=== PATIENT | female | born 1995 | race African-American/Black ===

== ENCOUNTER 2019-01-12 22:17 | Emergency (ER) | payer SELFPAY ==
--- OUTSIDE RECORDS SUMMARY | 2019-01-12 22:21 | XMS REPORT ---
:1995 [facility] Address [address] [place] [id number] Care Team Providers Name Role Phone Unavailable Unavailable Unavailable Problems This patient has no known problems. Allergies, Adverse Reactions, Alerts This patient has no known allergies or adverse reactions. Medications This patient has no known medications. Encounters Start End Encounter Admission Attending Care Care Encounter Date/Time Date/Time Type Type Clinicians Facility Department ID 2017-06-03 2017-06-03 Outpatient [facility] [id number] 00:00:00 00:00:00 2017-04-26 2017-04-26 Outpatient [facility] [id number] 07:37:31 07:37:31 2017-04-24 2017-04-24 Outpatient [facility] [id number] 07:21:26 07:21:26 2017-04-23 2017-04-23 Outpatient [facility] [id number] 15:25:08 15:25:08 2017-04-22 2017-04-22 Outpatient [facility] [id number] 10:38:27 10:38:27 2017-04-21 2017-04-21 Emergency [facility] [id number] 04:19:42 04:19:42 2017-04-21 2017-04-21 Inpatient [facility] [id number] 00:52:05 00:52:05 2017-04-19 2017-04-19 Emergency [facility] [id number] 18:41:35 18:41:35
--- OUTSIDE RECORDS SUMMARY | 2019-01-12 22:21 | XMS REPORT | Clinical Summary ---
:1995 Author Organization [facility] Address [address] [place] [address] Care Team Providers Name Role Phone Asked, No Pcp Primary Care Provider Unavailable Allergies Active Allergy Reactions Severity Noted Date Comments Penicillins Shortness Of Breath High 02/21/2018 Medications Medication Sig Dispensed Refills Start Date End Date Status acetaminophen-codein Take 1 tablet by 12 tablet 0 02/21/2018 02/27/2018 e (TYLENOL WITH mouth every 6 CODEINE #3) 300-30 (six) hours as mg per tablet needed for moderate pain for up to 12 doses. acetaminophen-codein Take 1 tablet by 12 tablet 0 02/21/2018 02/28/2018 e (TYLENOL WITH mouth every 6 CODEINE #3) 300-30 (six) hours as mg per tablet needed for moderate pain for up to 12 doses. Active Problems Not on file Encounters Date Type Specialty Care Team Description 02/21/2018 Emergency Emergency Medicine Karina Corley, Sprain of medial MD collateral ligament of right knee, initial encounter (Primary Dx) after 01/11/2018 Social History Tobacco Use Types Packs/Day Years Used Date Never Smoker Smokeless Tobacco: Never Used Alcohol Use Drinks/Week oz/Week Comments Yes Occasionally Sex Assigned at Date Recorded Not on file Job Start Date Occupation Industry Not on file Not on file Not on file Travel History Travel Start Travel End No recent travel history available. Last Filed Vital Signs Vital Sign Reading Time Taken Blood Pressure 125/68 02/21/2018 10:13 PM CDT Pulse 101 02/21/2018 10:13 PM CDT Temperature 37.1 C (98.7 F) 02/21/2018 10:13 PM CDT Respiratory Rate 18 02/21/2018 10:13 PM CDT Oxygen Saturation 99% 02/21/2018 10:13 PM CDT Inhaled Oxygen Concentration - - Weight - - Height 149.9 cm (4' 11") 02/21/2018 6:05 PM CDT Body Mass Index - - Plan of Treatment Health Maintenance Due Date Last Done Comments INFLUENZA VACCINE 02/22/2019 Procedures Procedure Name Priority Date/Time Associated Comments Diagnosis SPLINT APPLICATION Routine 02/21/2018 9:40 Results for this PM CDT procedure are in the results section. XR KNEE 4+ VW RIGHT STAT 02/21/2018 6:51 Results for this PM CDT procedure are in the results section. HCG QUALITATIVE, Routine 02/21/2018 6:20 Results for this URINE SCREEN PM CDT procedure are in the results section. after 01/11/2018 Results SPLINT APPLICATION (02/21/2018 9:40 PM CDT) Narrative Performed At Karina Corley MD 02/22/20187:40 PM Splint Application Performed by: SONIA HO Authorized by: KARINA CORLEY Consent: Consent obtained:Verbal Consent given by:Patient Risks discussed:Pain Alternatives discussed:No treatment Pre-procedure details: Sensation:Normal Procedure details: Laterality:Right Location:Knee Knee:R knee Splint type:Knee immobilizer Supplies:Prefabricated splint Post-procedure details: Pain:Unchanged Sensation:Normal Patient tolerance of procedure:Tolerated well, no immediate complications XR Knee 4+ Vw Right (02/21/2018 6:51 PM CDT) Specimen Narrative Performed At EXAMINATION:XR KNEE 4VW RIGHT [facility] CLINICAL HISTORY:knee pain COMPARISON:None. FINDINGS: The bones appear intact. There is narrowing the medial and patellofemoral compartments. There are no fractures visualized. There is no fluid noted about the joint. IMPRESSION: There is narrowing the medial and patellofemoral joint compartments no acute finding is visualized. [id number] Procedure Note Hm Interface, Radiology Results Incoming - 02/21/2018 7:00 PM CDT EXAMINATION: XR KNEE 4 VW RIGHT CLINICAL HISTORY: knee pain COMPARISON: None. FINDINGS: The bones appear intact. There is narrowing the medial and patellofemoral compartments. There are no fractures visualized. There is no fluid noted about the joint. IMPRESSION: There is narrowing the medial and patellofemoral joint compartments no acute finding is visualized. [id number] Performing Organization Address City/State/Zipcode Phone Number GAURAV RODRIGUEZ [phone] [place] [address] hCG qualitative, urine screen (02/21/2018 6:20 PM CDT) hCG qualitative, NegativeComment: [facility] DEPARTMENT OF urine Sensitivity of HCG PATHOLOGY AND test: 25 mIU/mL GENOMIC MEDICINE Specimen Urine Performing Organization Address City[facility] Phone Number [facility] DEPARTMENT OF PATHOLOGY AND [address] [place] [address] GENOMIC MEDICINE after 01/11/2018 Insurance Payer Benefit Plan / Subscriber ID Effective Dates Phone Address Type Group CVCP CVCP BCBS xxxxxxxxxxxx 2015-Present Sheryl [facility], [address] [place] [address] (Home) [address] [place] [address] [place] [id number] Advance Directives Patient has advance care planning documents on file. For more information, please contact:Ramirez [email or web address] [place] [address]
[2019-01-12] MEDS ORDERED: PROMETHAZINE 25 MG TABLET ONE (23:17)
[2019-01-12] MEDS ORDERED: HYDROCODONE/APAP 5/325 MG TAB ONE (23:17)
[2019-01-12] MEDS ORDERED: GENTAMICIN 0.3% OPTH DROP 5ML ONE (23:18)
[2019-01-12] MEDS ORDERED: KETOROLAC 30 MG/ML INJ ONE (23:30)
[2019-01-12 23:32] LABS: Urine Blood 2+ (NEG); Urine Glucose NEGATIVE (NEG); Urine Protein 3+ (NEG); Urine Specific Gravity >1.030 (1.005-1.030)
[2019-01-12 23:57] LABS: Urine Bacteria <20 /HPF (<20); Urine Culture Reflex Order NOT NEEDED; Urine RBC <5 /HPF (NONE SEEN)
[2019-01-13 00:27] LABS: Absolute Lymphocytes (CBC) 1.3 K/uL (0.7-4.9); Basophils % 0.1 % (0-1.3); Eosinophils % 0.3 % (0-4.4); Hematocrit 34.2 % (36.0-45.0); Lymphocytes % 16.4 % (15.3-44.8); MPV 8.4 fL (7.6-11.3); Monocytes % 6.2 % (3.3-12.3); RBC Red Blood Cell Count 3.69 M/uL (3.86-4.86)
[2019-01-13] MEDS ORDERED: NA CHLORIDE 0.9% 1,000 ML ONE (00:33)
[2019-01-13 00:43] LABS: BUN Blood Urea Nitrogen 11 mg/dL (7-18); Bicarbonate 25 mmol/L (21-32); Glucose Level 116 mg/dL (74-106); Potassium 3.6 mmol/L (3.5-5.1); Sodium Level 139 mmol/L (136-145)
[2019-01-13] MEDS ORDERED: DIPHENHYDRAMINE 50 MG/ML VIAL ONE (01:09)
--- NOTE | 2019-01-13 01:23 | EDPHYS ---
Physician Documentation [facility] Name: Amira Ruiz Age: 23 yrs Sex: Female : 1995 Arrival Date: 01/12/2019 Time: 22:22 Bed 16 Private MD: ED Physician Corine Carlin HPI: 01/12 23:06 This 23 yrs old Black Female presents to ER via Ambulatory with complaints of Nasal snw Congestion, Headache, Difficulty Swallowing. 23:06 The patient or guardian reports cough, flu symptoms, low-grade fever, myalgias, no snw appetite. Onset: The symptoms/episode began/occurred suddenly, 3 day(s) ago, and became persistent. Severity of symptoms: At their worst the symptoms were moderate. Associated signs and symptoms: Pertinent positives: fever, rhinorrhea, sore throat. It is unknown whether or not the patient has had similar symptoms in the past. It is unknown whether or not the patient has recently seen a physician. taking dayquil/nyquil and using neti pot. [employer]: 01/13 01:58 LMP N/A - Irregular menses jd3 Historical: - Allergies: 01/12 22:33 PENICILLINS; jd3 - Home Meds: 22:33 Prednisone Oral [Active]; Ferrex 150 oral oral [Active]; Omeprazole Oral [Active]; jd3 - PMHx: 22:33 Lupus; Anemia; jd3 - PSHx: 22:33 kidney; elbow; heart; jd3 - Immunization history:: Adult Immunizations up to date. - Social history:: Smoking status: Patient/guardian denies using tobacco. - Ebola Screening: : Patient negative for fever greater than or equal to 101.5 degrees Fahrenheit, and additional compatible Ebola Virus Disease symptoms. ROS: 23:05 ENT: Negative for injury, pain, and discharge, Neck: Negative for injury, pain, and snw swelling, Cardiovascular: Negative for chest pain, palpitations, and edema, Respiratory: Negative for shortness of breath, cough, wheezing, and pleuritic chest pain, Abdomen/GI: Negative for abdominal pain, nausea, vomiting, diarrhea, and constipation, Back: Negative for injury and pain, : Negative for injury, bleeding, discharge, and swelling, MS/Extremity: Negative for injury and deformity, Skin: Negative for injury, rash, and discoloration. 23:05 Constitutional: Positive for body aches, fatigue, fever, malaise. 23:05 Eyes: Positive for discharge, matting, redness, of the outer aspect of conjuctiva of left eye and inner aspect of conjunctiva of left eye. 23:05 Neuro: Positive for headache, pressure around top of head. Exam: 23:03 Constitutional: This is a well developed, well nourished patient who is awake, alert, snw and in no acute distress. Head/Face: Normocephalic, atraumatic. 23:03 ENT: Nares patent. No nasal discharge, no septal abnormalities noted. Tympanic membranes are normal and external auditory canals are clear. Oropharynx with no redness, swelling, or masses, exudates, or evidence of obstruction, uvula midline. Mucous membranes moist. Neck: Trachea midline, no thyromegaly or masses palpated, and no cervical lymphadenopathy. Supple, full range of motion without nuchal rigidity, or vertebral point tenderness. No Meningismus. Chest/axilla: Normal chest wall appearance and motion. Nontender with no deformity. No lesions are appreciated. 23:03 Respiratory: Lungs have equal breath sounds bilaterally, clear to auscultation and percussion. No rales, rhonchi or wheezes noted. No increased work of breathing, no retractions or nasal flaring. Abdomen/GI: Soft, non-tender, with normal bowel sounds. No distension or tympany. No guarding or rebound. No evidence of tenderness throughout. Back: No spinal tenderness. No costovertebral tenderness. Full range of motion. Skin: Warm, dry with normal turgor. Normal color with no rashes, no lesions, and no evidence of cellulitis. MS/ Extremity: Pulses equal, no cyanosis. Neurovascular intact. Full, normal range of motion. 23:03 Eyes: Periorbital structures: appear normal, Pupils: no acute changes, Extraocular movements: no acute changes, Conjunctiva: exudate, in the left eye, injected, in the left eye, Corneas: are normal, Sclera: no appreciated abnormality. 23:03 Cardiovascular: Rate: tachycardic, Rhythm: regular. 23:03 Neuro: Orientation: appropriate for stated age, Mentation: is normal, Sensation: is normal, seizure activity, is not displayed by the patient. Vital Signs: 22:33 BP 135 / 89; Pulse 113; Resp 17 S; Temp 98.4(O); Pulse Ox 98% on R/A; Weight 65.77 kg jd3 (R); Height 4 ft. 11 in. (149.86 cm) (R); Pain 10/10; 23:33 BP 122 / 77; Pulse 110; Resp 16; Pulse Ox 99% on R/A; jb4 01/13 01:00 BP 111 / 70; Pulse 89; Resp 18; Pulse Ox 100% on R/A; jb4 01/12 22:33 Body Mass Index 29.29 (65.77 kg, 149.86 cm) jd3 MDM: 01/12 22:29 Patient medically screened. w 01/13 01:25 Data reviewed: vital signs, nurses notes, lab test result(s). Data interpreted: Pulse snw oximetry: on room air is 100 %. Interpretation: normal. Counseling: I had a detailed discussion with the patient and/or guardian regarding: the historical points, exam findings, and any diagnostic results supporting the discharge/admit diagnosis, lab results, the need for outpatient follow up, to return to the emergency department if symptoms worsen or persist or if there are any questions or concerns that arise at home. Response to treatment: the patient's symptoms have markedly improved after treatment. Special discussion: Based on the history and exam findings, there is no indication for further emergent testing or inpatient evaluation. I discussed with the patient/guardian the need to see the primary care provider for further evaluation of the symptoms. 01/12 22:52 Order name: Flu; Complete Time: 23:57 snw 01/12 22:52 Order name: Strep; Complete Time: 23:57 snw 01/12 22:52 Order name: Urine Culture snw 01/12 22:52 Order name: Urine Microscopic Only; Complete Time: 00:29 snw 01/12 23:21 Order name: Urine Dipstick--Ancillary (enter results); Complete Time: 23:57 ar5 01/12 23:21 Order name: Urine --Ancillary (enter results); Complete Time: 23:57 ar5 01/12 23:53 Order name: Throat Culture EDMS 01/13 00:03 Order name: CBC with Diff; Complete Time: 00:44 jb4 01/13 00:03 Order name: Basic Metabolic Panel; Complete Time: 00:44 4 01/12 22:52 Order name: Urine Test (obtain specimen); Complete Time: 23:29 snw 01/12 22:52 Order name: Urine Dipstick-Ancillary (obtain specimen); Complete Time: 23:29 snw 01/13 00:03 Order name: IV Saline Lock; Complete Time: 00:27 4 01/13 00:03 Order name: Labs collected and sent; Complete Time: 00:25 [facility] Administered Medications: 01/12 23:05 Not Given (other intervention used): Tobramycin Drops (0.3 %) 2 drops Ophthalmic once; snw OS 23:10 Not Given (patient request/): [place] 5 mg-325 mg 1 tabs PO once snw 23:10 Drug: Phenergan 25 mg Route: PO; [facility] 01/13 00:10 Follow up: Response: No adverse reaction [facility] 01/12 23:10 Drug: Gentamicin Drops 0.3 % 2 drops Route: Ophthalmic; Site: left eye; [facility] 01/13 00:10 Follow up: Response: No adverse reaction [facility] 01/12 23:24 Drug: TORadol 30 mg Route: IM; Site: left gluteus; [facility] 01/13 00:20 Follow up: Response: No adverse reaction j 00:25 Drug: NS 0.9% 1000 ml Route: IV; Rate: 1 bolus; Site: left antecubital; 4 01:58 Follow up: Response: No adverse reaction; IV Status: Completed infusion; IV Intake: jd3 1000ml 01:06 Drug: Benadryl 12.5 mg Route: IVP; Site: left antecubital; 4 01:58 Follow up: Response: No adverse reaction jd3 Disposition: 02:59 Co-signature as Attending Physician, Corine Carlin MD. ma2 Disposition: 01/13/19 01:21 Discharged to Home. Impression: Acute upper respiratory infection, unspecified, Conjunctivitis, Volume depletion. - Condition is Stable. - Discharge Instructions: Bacterial Conjunctivitis, Upper Respiratory Infection, Adult, Cool Mist Vaporizer, Rehydration, Adult. - Prescriptions for Nasonex 50 mcg/actuation Nasal spray,non- aerosol - spray 2 spray by INTRANASAL route once daily; 1 Cartridge. Polytrim 10,000 unit- 1 mg/mL Ophthalmic drops - instill 1 drop by OPHTHALMIC route every 4 hours; 1 bottle. - Work release form, Medication Reconciliation Form, Thank You Letter, Antibiotic Education, Prescription Opioid Use form. - Follow up: Private Physician; When: 2 - 3 days; Reason: Recheck today's complaints, Continuance of care, Re-evaluation by your physician. Follow up: Emergency Department; When: As needed; Reason: Worsening of condition. Signatures: Dispatcher [employer] EDMS Tali Gibbs, JALEN-C TELEVISION PICTURE TUBE REBUILDER-Csnw Arya Wolf, RN RN jb4 Conor De La Rosa RN RN jd3 Corine Carlin MD MD ma2 Corrections: (The following items were deleted from the chart) 02:00 01:21 01/13/2019 01:21 Discharged to Home. Impression: Acute upper respiratory jd3 infection, unspecified; Conjunctivitis; Volume depletion. Condition is Stable. Forms are Medication Reconciliation Form, Thank You Letter, Antibiotic Education, Prescription Opioid Use. Follow up: Private Physician; When: 2 - 3 days; Reason: Recheck today's complaints, Continuance of care, Re-evaluation by your physician. Follow up: Emergency Department; When: As needed; Reason: Worsening of condition. snw
--- NOTE | 2019-01-13 01:23 | ER ---
Nurse's Notes [facility] Name: Amira Ruiz Age: 23 yrs Sex: Female : 1995 Arrival Date: 01/12/2019 Time: 22:22 Bed 16 Private MD: Diagnosis: Acute upper respiratory infection, unspecified;Conjunctivitis;Volume depletion Presentation: 01/12 22:29 Presenting complaint: states: "She has had a headache for 3 days as well as jd3 pink eye. today she started having cold sweats and fever off and on as well as a worsening headache and sinus pressure.". Transition of care: patient was not received from another setting of care. Onset of symptoms was January 09, 2019. Risk Assessment: Do you want to hurt yourself or someone else? Patient reports no desire to harm self or others. Initial Sepsis Screen: Does the patient meet any 2 criteria? HR > 90 bpm. No. Patient's initial sepsis screen is negative. Does the patient have a suspected source of infection? No. Patient's initial sepsis screen is negative. Care prior to arrival: None. 22:29 Method Of Arrival: Ambulatory [facility] 22:29 Acuity: BRIT 3 jd3 Triage Assessment: 01/13 01:56 Headache History: The patient has had previous headaches and this one is different than jd3 previous episodes, and this one is more severe than previous episodes. 01:57 Pain: Pain began gradually, Also complains of no other associated symptoms. 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 - Social history:: Smoking status: Patient/guardian denies using tobacco. - Ebola Screening: : Patient negative for fever greater than or equal to 101.5 degrees Fahrenheit, and additional compatible Ebola Virus Disease symptoms. Screenin/22 01:56 Abuse screen: Denies threats or abuse. Nutritional screening: No deficits noted. jd3 Tuberculosis screening: No symptoms or risk factors identified. Fall Risk Ambulatory Aid- None/Bed Rest/Nurse Assist (0 pts). Gait- Normal/Bed Rest/Wheelchair (0 pts) Mental Status- Oriented to own ability (0 pts). Total Dominguez Fall Scale indicates No Risk (0-24 pts). Assessment: 01/12 22:30 General: Appears in no apparent distress. uncomfortable, Behavior is calm, cooperative, jb4 appropriate for age. Pain: Complains of pain in left eye, headache, face Pain does not radiate. Pain currently is 8 out of 10 on a pain scale. Quality of pain is described as stabbing, throbbing. Neuro: Level of Consciousness is awake, alert, obeys commands, Oriented to person, place, time, situation. Cardiovascular: Patient's skin is warm and dry. Respiratory: Airway is patent Respiratory effort is even, unlabored, Respiratory pattern is regular, symmetrical. GI: No deficits noted. : No deficits noted. EENT: Sclera/Cornea are reddened in outer aspect of conjuctiva of left eye, iris of left eye and inner aspect of conjunctiva of left eye. Derm: Skin is intact, Skin is pink, warm \\T\\ dry. Musculoskeletal: Circulation, motion, and sensation intact. 23:33 Reassessment: Patient appears in no apparent distress at this time. Patient and/or jb4 family updated on plan of care and expected duration. Pain level reassessed. Patient is alert, oriented x 3, equal unlabored respirations, skin warm/dry/pink. 01/13 01:00 Reassessment: Patient appears in no apparent distress at this time. Patient and/or jb4 family updated on plan of care and expected duration. Pain level reassessed. Patient is alert, oriented x 3, equal unlabored respirations, skin warm/dry/pink. Patient states feeling better. 01:55 Reassessment: Patient appears in no apparent distress at this time. Patient and/or jd3 family updated on plan of care and expected duration. Pain level reassessed. Patient is alert, oriented x 3, equal unlabored respirations, skin warm/dry/pink. Patient states feeling better. Vital Signs: 01/12 22:33 BP 135 / 89; Pulse 113; Resp 17 S; Temp 98.4(O); Pulse Ox 98% on R/A; Weight 65.77 kg jd3 (R); Height 4 ft. 11 in. (149.86 cm) (R); Pain 10/10; 23:33 BP 122 / 77; Pulse 110; Resp 16; Pulse Ox 99% on R/A; jb4 01/13 01:00 BP 111 / 70; Pulse 89; Resp 18; Pulse Ox 100% on R/A; jb4 01/12 22:33 Body Mass Index 29.29 (65.77 kg, 149.86 cm) j ED Course: 01/12 22:22 Patient arrived in ED. es 22:23 Arya Wolf, RN is Primary Nurse. jb4 22:28 Tali Gibbs FNP-C is PHCP. snw 22:28 Corine Carlin MD is Attending Physician. snw 22:31 Triage completed. jd3 22:33 Arm band placed on. jd3 01/13 01:56 Patient has correct armband on for positive identification. Bed in low position. Call j light in reach. Side rails up X 1. Adult w/ patient. 01:57 No provider procedures requiring assistance completed. IV discontinued, intact, jd3 bleeding controlled, No redness/swelling at site. Pressure dressing applied. Administered Medications: 01/12 23:05 Not Given (other intervention used): Tobramycin Drops (0.3 %) 2 drops Ophthalmic once; snw OS 23:10 Not Given (patient request/): [place] 5 mg-325 mg 1 tabs PO once snw 23:10 Drug: Phenergan 25 mg Route: PO; jb4 01/13 00:10 Follow up: Response: No adverse reaction jd3 01/12 23:10 Drug: Gentamicin Drops 0.3 % 2 drops Route: Ophthalmic; Site: left eye; jb4 01/13 00:10 Follow up: Response: No adverse reaction jd3 01/12 23:24 Drug: TORadol 30 mg Route: IM; Site: left gluteus; jb4 01/13 00:20 Follow up: Response: No adverse reaction jd3 00:25 Drug: NS 0.9% 1000 ml Route: IV; Rate: 1 bolus; Site: left antecubital; jb4 01:58 Follow up: Response: No adverse reaction; IV Status: Completed infusion; IV Intake: jd3 1000ml 01:06 Drug: Benadryl 12.5 mg Route: IVP; Site: left antecubital; jb4 01:58 Follow up: Response: No adverse reaction jd3 Intake: 01:58 IV: 1000ml; Total: 1000ml. jd3 Outcome: 01:21 Discharge ordered by . luisa 01:57 Discharged to home ambulatory, with family. jd3 01:57 Condition: stable 01:57 Discharge instructions given to patient, family, Instructed on discharge instructions, follow up and referral plans. medication usage, Demonstrated understanding of instructions, follow-up care, medications, Prescriptions given X 2. 02:00 Patient left the ED. jd3 Signatures: Tali Gibbs, SACK SEWER MACHINE-C SACK SEWER MACHINE-CsnMelissa Bain James, RN RN jb4 Conor De La Rosa RN RN jd3
== END 2019-01-13 02:00 | disposition home or self-care (01) ==
LOC: ER 22:17
DX: J06.9 Acute upper respiratory infection, unspecified (principal); H10.9 Unspecified conjunctivitis; E86.9 Volume depletion, unspecified; D64.9 Anemia, unspecified; Z88.0 Allergy status to penicillin
CPT/HCPCS: 36415; 80048; 81003; 81015; 81025; 85025; 87070; 87081; 87086; 87088; 87804; 96361; 96372; 96374; 99283; J7030

== ENCOUNTER 2020-02-11 09:43 | Inpatient (IN) | payer OTHER, SELFPAY ==
[2020-02-11 12:06] LABS: Urine Bacteria <20 /HPF (<20); Urine Culture Reflex Order REFLEXED; Urine RBC <5 /HPF (NONE SEEN)
[2020-02-11 12:09] LABS: Urine Blood 1+ (NEG); Urine Glucose NEGATIVE (NEG); Urine Protein 3+ (NEG); Urine pH 6.5 (5.0-7.0)
[2020-02-11 12:13] LABS: Absolute Lymphocytes (CBC) 1.5 K/uL (0.7-4.9); MPV 8.2 fL (7.6-11.3)
[2020-02-11 12:17] LABS: Protime INR 0.97
[2020-02-11] MEDS ORDERED: NA CHLORIDE 0.9% 1,000 ML ONE (12:21)
[2020-02-11 12:36] LABS: RBC Red Blood Cell Count < 1.05 M/uL (3.86-4.86)
--- NOTE | 2020-02-11 12:45 | RAD REPORT ---
EXAM DESCRIPTION: RAD - Chest Single View - 02/11/2020 12:35 pm CLINICAL HISTORY: DYSPNEA, sore throat, low-grade fever COMPARISON: None TECHNIQUE: AP portable chest image was obtained 02/11/2020 12:35 pm . FINDINGS: Lung volumes are clear. No peripheral mass or consolidation. Heart and vasculature are nor mal. No measurable pleural effusion and no pneumothorax. No acute bony abnormality seen. No acute aor tic findings suspected. IMPRESSION: No acute cardiopulmonary process.
[2020-02-11 12:49] LABS: ALT/SGPT 11 U/L (12-78); AST/SGOT 15 U/L (15-37); Albumin 2.7 g/dL (3.4-5.0); Alkaline Phosphatase 57 U/L (45-117); BUN Blood Urea Nitrogen 79 mg/dL (7-18); Bicarbonate 16 mmol/L (21-32); Bilirubin Direct 0.4 mg/dL (0-0.2); Bilirubin Total 1.3 mg/dL (0.2-1.0); Glucose Level 99 mg/dL (74-106); Magnesium 1.7 mg/dL (1.8-2.4); NT PRO-BNP 8398 pg/mL (<125); Potassium 4.3 mmol/L (3.5-5.1); Protein, Total 8.2 g/dL (6.4-8.2); Sodium Level 141 mmol/L (136-145); Troponin (Emerg Dept Use Only) < 0.02 ng/mL (0.0-0.045)
[2020-02-11 13:42] LABS: Anisocytosis 2+; Blood Morphology Comment NOTED (NOT SEEN); Platelet Estimate ADEQ
[2020-02-11 13:43] LABS: Polychromasia 1+
--- NOTE | 2020-02-11 13:43 | EDPHYS ---
Physician Documentation [facility] Name: Amira Ruiz Age: 24 yrs Sex: Female : 1995 Arrival Date: 02/11/2020 Time: 09:45 Bed 13 Private MD: ED Physician Daniel Devlin HPI: 02/10 12:40 This 24 yrs old Black Female presents to ER via Ambulatory with complaints of Shortness snw Of Breath, Eye Pain, Sore Throat. 12:40 The patient has shortness of breath at rest. Onset: The symptoms/episode began/occurred snw 1 month(s) ago, and became worse 1 week(s) ago, and became persistent. Duration: The symptoms are continuous, and are steadily getting worse. Associated signs and symptoms: Pertinent positives: palpitations. Severity of symptoms: At their worst the symptoms were moderate in the emergency department the symptoms are unchanged. It is unknown whether or not the patient has had similar symptoms in the past. The patient has been recently seen by a physician: with similar presenting complaints. pt has Lupus and thought she was having s/s of that. She does not see an endo and has been taking 10mg prednisone daily for 10+ years. 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 - Social history:: Smoking status: Patient denies any tobacco usage or history of. ROS: 12:44 Neck: Negative for injury, pain, and swelling. snw 12:44 Abdomen/GI: Negative for abdominal pain, nausea, vomiting, diarrhea, and constipation, Back: Negative for injury and pain, : Negative for injury, bleeding, discharge, and swelling, MS/Extremity: Negative for injury and deformity, Skin: Negative for injury, rash, and discoloration, Neuro: Negative for headache, weakness, numbness, tingling, and seizure. 12:44 Constitutional: Positive for body aches, fatigue, malaise. 12:44 Eyes: Positive for pain. 12:44 ENT: Positive for sore throat. 12:44 Cardiovascular: Positive for palpitations. 12:44 Respiratory: Positive for dyspnea on exertion, shortness of breath. Exam: 12:39 Head/Face: Normocephalic, atraumatic. snw 12:39 ENT: Nares patent. No nasal discharge, no septal abnormalities noted. Tympanic membranes are normal and external auditory canals are clear. Oropharynx with no redness, swelling, or masses, exudates, or evidence of obstruction, uvula midline. Mucous membranes moist. Neck: Trachea midline, no thyromegaly or masses palpated, and no cervical lymphadenopathy. Supple, full range of motion without nuchal rigidity, or vertebral point tenderness. No Meningismus. Chest/axilla: Normal chest wall appearance and motion. Nontender with no deformity. No lesions are appreciated. 12:39 Abdomen/GI: Soft, non-tender, with normal bowel sounds. No distension or tympany. No guarding or rebound. No evidence of tenderness throughout. Back: No spinal tenderness. No costovertebral tenderness. Full range of motion. Skin: Warm, dry with normal turgor. Normal color with no rashes, no lesions, and no evidence of cellulitis. MS/ Extremity: Pulses equal, no cyanosis. Neurovascular intact. Full, normal range of motion. Neuro: Awake and alert, GCS 15, oriented to person, place, time, and situation. Cranial nerves II-XII grossly intact. Motor strength 5/5 in all extremities. Sensory grossly intact. Cerebellar exam normal. Normal gait. Psych: Awake, alert, with orientation to person, place and time. Behavior, mood, and affect are within normal limits. 12:39 Constitutional: The patient appears alert, awake, pale. 12:39 Eyes: Conjunctiva: pale, bilaterally. 12:39 Cardiovascular: Rate: tachycardic, Rhythm: regular. 12:39 Respiratory: the patient does not display signs of respiratory distress, Respirations: shallow respirations, tachypnea, Breath sounds: are clear throughout. Vital Signs: 10:01 BP 117 / 68; Pulse 103; Resp 18; Temp 98.6; Pulse Ox 100% on R/A; Weight 60.33 kg; em Height 4 ft. 11 in. (149.86 cm); Pain 0/10; 12:20 BP 107 / 71; Pulse 111; Resp 20 S; Pulse Ox 100% on R/A; ca1 13:10 BP 103 / 67; Pulse 100; Resp 18 S; Pulse Ox 98% on R/A; ca1 13:59 BP 104 / 64; Pulse 91; Resp 18 S; Pulse Ox 100% on R/A; ca1 15:14 BP 106 / 60; Pulse 103; Resp 18 S; Pulse Ox 100% on R/A; ca1 16:00 BP 94 / 55; Pulse 99; Resp 18 S; Pulse Ox 100% on R/A; ca1 16:29 BP 110 / 55; Pulse 100; Resp 19 S; Pulse Ox 100% on R/A; ca1 10:01 Body Mass Index 26.86 (60.33 kg, 149.86 cm) em MDM: 11:28 Patient medically screened. snw 13:39 Data reviewed: vital signs, nurses notes. Data interpreted: Pulse oximetry: on room air snw is 98 %. Interpretation: normal. Counseling: I had a detailed discussion with the patient and/or guardian regarding: the historical points, exam findings, and any diagnostic results supporting the discharge/admit diagnosis, lab results, the need for further work-up and treatment in the hospital. Physician consultation: Fabian LOZANO was called at 13:41, was contacted at 13:41, regarding admission, to the telemetry unit. would like consultation with Dr. Bray. 02/10 11:27 Order name: Basic Metabolic Panel; Complete Time: 13:18 snw 02/10 11:27 Order name: CBC with Diff; Complete Time: 13:58 snw 02/10 11:27 Order name: LFT's; Complete Time: 13:18 snw 02/10 11:27 Order name: Magnesium; Complete Time: 13:18 snw 02/10 11:27 Order name: NT PRO-BNP; Complete Time: 13:18 snw 02/10 11:27 Order name: PT-INR; Complete Time: 12:32 snw 02/10 11:27 Order name: Troponin (emerg Dept Use Only); Complete Time: 13:18 snw 02/10 11:27 Order name: TSH; Complete Time: 13:18 snw 02/10 11:27 Order name: TS snw 02/10 11:27 Order name: Strep; Complete Time: 12:50 snw 02/10 11:27 Order name: Urine Culture snw 02/10 11:27 Order name: Urine Microscopic Only; Complete Time: 12:14 [facility] 02/10 11:28 Order name: Lactate; Complete Time: 12:32 [facility] 02/10 11:36 Order name: Urine Dipstick--Ancillary (enter results); Complete Time: 12:14 de 02/10 11:27 Order name: XRAY Chest (1 view); Complete Time: 12:50 [facility] 02/10 11:27 Order name: EKG; Complete Time: 11:29 [facility] 02/10 11:27 Order name: Cardiac monitoring; Complete Time: 12:08 [facility] 02/10 11:36 Order name: Urine --Ancillary (enter results); Complete Time: 12:14 de 02/10 12:47 Order name: Bb Add On [facility] 02/10 12:49 Order name: Throat Culture [facility] 02/10 13:16 Order name: Packed RBC Leukored [facility] 02/10 13:43 Order name: Manual Differential; Complete Time: 13:58 [facility] 02/10 15:29 Order name: CONS Physician Consult [facility] 02/10 16:29 Order name: NT PRO-BNP; Complete Time: 16:31 [facility] 02/10 16:38 Order name: T4 Free; Complete Time: 16:45 [facility] 02/10 11:27 Order name: EKG - Nurse/Tech; Complete Time: 12:08 [facility] 02/10 11:27 Order name: IV Saline Lock; Complete Time: 12:09 [facility] 02/10 11:27 Order name: Labs collected and sent; Complete Time: 12:09 [facility] 02/10 11:27 Order name: O2 Per Protocol; Complete Time: 12:09 [facility] 02/10 11:27 Order name: O2 Sat Monitoring; Complete Time: 12:09 [facility] 02/10 11:27 Order name: Urine Test (obtain specimen); Complete Time: 11:34 [facility] 02/10 11:27 Order name: Urine Dipstick-Ancillary (obtain specimen); Complete Time: 11:34 [facility] 02/10 14:42 Order name: Urine Test (obtain specimen); Complete Time: 15:03 snw Administered Medications: Discontinued: NS 0.9% 1000 ml IV at 125 ml/hr continuous 11:50 Drug: NS 0.9% 1000 ml Route: IV; Rate: 125 ml/hr; Site: right antecubital; ca1 14:00 Follow up: Response: No adverse reaction; IV Status: Infusion continued upon admission ca1 14:30 Drug: D5W with Sodium Bicarbonate 100 mEq/L 1000 ml Route: IV; Rate: 125 ml/hr; Site: ca1 right antecubital; 15:15 Follow up: Response: Adverse reaction, Physician notified; IV Status: Infusion ca1 continued upon admission Disposition: 18:26 Co-signature as Attending Physician, Daniel Devlin MD. rn Disposition: 02/11/20 13:43 Hospitalization ordered by Fabian Kowalski for Inpatient Admission. Preliminary diagnosis are Acute renal failure, Lupus erythematosus, Anemia in other chronic diseases classified elsewhere. - Bed requested for Telemetry/MedSurg (Inpatient). - Status is Inpatient Admission. ca1 - Condition is Stable. - Problem is an acute exacerbation. - Symptoms have worsened. Signatures: Dispatcher [employer] EDMS Fiordaliza Freedman Shelly, SR. MANAGER MARKETING-C SR. MANAGER MARKETING-Csnw Sammy Schwarz, RN RN em Daniel Devlin MD MD rn AcobEunice RN RN ca1 Corrections: (The following items were deleted from the chart) 13:16 12:48 PACKED RBC LEUKORED -1+BB.LAB.BRZ ordered. EDIL EDMS 13:16 12:48 ABO/RH typing ordered. EDIL EDMS 13:16 12:48 Antibody Screen ordered. EDIL EDMS 16:00 13:43 Hospitalization Ordered by Fabian LOZANO for Inpatient Admission. bd Preliminary diagnosis is Acute renal failure; Lupus erythematosus; Anemia in other chronic diseases classified elsewhere. Bed requested for Telemetry/MedSurg (Inpatient). Status is Inpatient Admission. Condition is Stable. Problem is an acute exacerbation. Symptoms have worsened. snw 17:36 16:00 02/11/2020 13:43 Hospitalization Ordered by Fabian LOZANO for Inpatient ca1 Admission. Preliminary diagnosis is Acute renal failure; Lupus erythematosus; Anemia in other chronic diseases classified elsewhere. Bed requested for Telemetry/MedSurg (Inpatient). Status is Inpatient Admission. Condition is Stable. Problem is an acute exacerbation. Symptoms have worsened. bd
--- NOTE | 2020-02-11 13:43 | ER ---
Nurse's Notes [facility] Name: Amira Ruiz Age: 24 yrs Sex: Female : 1995 Arrival Date: 02/11/2020 Time: 09:45 Bed 13 Private MD: Diagnosis: Acute renal failure;Lupus erythematosus;Anemia in other chronic diseases classified elsewhere Presentation: 02/10 10:01 Chief complaint: Patient states: shortness of breath, sore throat and arthur. eye pain em that started 1 month ago, reports low grade fever, +N -V-D, right sided flank pain. Coronavirus screen: Patient reports a cough. Patient reports shortness of breath or difficulty breathing. Patient reports a measured and/or subjective temperature greater than 100.4F. Patient denies travel on a cruise ship or to a country the [facility] currently lists as an affected area. Patient denies contact with known and/or suspected case of COVID-19. Ebola Screen: Patient negative for fever greater than or equal to 101.5 degrees Fahrenheit, and additional compatible Ebola Virus Disease symptoms Patient denies exposure to infectious person. Patient denies travel to an Ebola-affected area in the 21 days before illness onset. No symptoms or risks identified at this time. Initial Sepsis Screen: Does the patient meet any 2 criteria? HR > 90 bpm. No. Patient's initial sepsis screen is negative. Does the patient have a suspected source of infection? No. Patient's initial sepsis screen is negative. Risk Assessment: Do you want to hurt yourself or someone else? Patient reports no desire to harm self or others. Onset of symptoms was January 12, 2020. 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 - Social history:: Smoking status: Patient denies any tobacco usage or history of. Screenin:30 Abuse screen: Denies threats or abuse. Denies injuries from another. Nutritional ca1 screening: No deficits noted. Tuberculosis screening: No symptoms or risk factors identified. Fall Risk IV access (20 points). Assessment: 11:30 General: Appears in no apparent distress. comfortable, Behavior is calm, cooperative, ca1 appropriate for age. Pain: Denies pain. Neuro: Level of Consciousness is awake, alert, obeys commands, Oriented to person, place, time, situation. Cardiovascular: Heart tones S1 S2 present Capillary refill < 3 seconds Patient's skin is warm and dry. Rhythm is sinus rhythm. Respiratory: Reports shortness of breath on exertion Airway is patent Respiratory effort is even, unlabored, Respiratory pattern is regular, symmetrical, Breath sounds are clear bilaterally. GI: Abdomen is flat, non-distended, Bowel sounds present X 4 quads. Abd is soft and non tender X 4 quads. : No signs and/or symptoms were reported regarding the genitourinary system. EENT: No signs and/or symptoms were reported regarding the EENT system. Derm: Skin is intact, is healthy with good turgor, Skin is pink, warm \T\ dry. Musculoskeletal: Circulation, motion, and sensation intact. Capillary refill < 3 seconds. 12:18 Reassessment: PER LAB, HGB GROSSLY ABNORMAL. PROVIDER NOTIFIED. bp 12:20 Reassessment: Patient appears in no apparent distress at this time. No changes from ca1 previously documented assessment. Patient and/or family updated on plan of care and expected duration. Pain level reassessed. Patient is alert, oriented x 3, equal unlabored respirations, skin warm/dry/pink. 13:10 Reassessment: Patient appears in no apparent distress at this time. Patient and/or ca1 family updated on plan of care and expected duration. Pain level reassessed. Patient is alert, oriented x 3, equal unlabored respirations, skin warm/dry/pink. 13:59 Reassessment: Patient appears in no apparent distress at this time. Patient and/or ca1 family updated on plan of care and expected duration. Pain level reassessed. Patient is alert, oriented x 3, equal unlabored respirations, skin warm/dry/pink. 15:14 Reassessment: Patient appears in no apparent distress at this time. Patient and/or ca1 family updated on plan of care and expected duration. Pain level reassessed. Patient is alert, oriented x 3, equal unlabored respirations, skin warm/dry/pink. 16:23 Reassessment: Patient appears in no apparent distress at this time. Patient and/or ca1 family updated on plan of care and expected duration. Pain level reassessed. Patient is alert, oriented x 3, equal unlabored respirations, skin warm/dry/pink. Called for report. Nurse will call back. Vital Signs: 10:01 BP 117 / 68; Pulse 103; Resp 18; Temp 98.6; Pulse Ox 100% on R/A; Weight 60.33 kg; em Height 4 ft. 11 in. (149.86 cm); Pain 0/10; 12:20 BP 107 / 71; Pulse 111; Resp 20 S; Pulse Ox 100% on R/A; ca1 13:10 BP 103 / 67; Pulse 100; Resp 18 S; Pulse Ox 98% on R/A; ca1 13:59 BP 104 / 64; Pulse 91; Resp 18 S; Pulse Ox 100% on R/A; ca1 15:14 BP 106 / 60; Pulse 103; Resp 18 S; Pulse Ox 100% on R/A; ca1 16:00 BP 94 / 55; Pulse 99; Resp 18 S; Pulse Ox 100% on R/A; ca1 16:29 BP 110 / 55; Pulse 100; Resp 19 S; Pulse Ox 100% on R/A; ca1 10:01 Body Mass Index 26.86 (60.33 kg, 149.86 cm) em ED Course: 09:45 Patient arrived in ED. bp1 09:46 Tali Montejo FNP-C is PHCP. snw 09:46 Daniel Devlin MD is Attending Physician. snw 10:04 Triage completed. em 10:05 Arm band placed on. em 11:02 Eunice Penn, RN is Primary Nurse. ca1 11:30 Patient has correct armband on for positive identification. Placed in gown. Bed in low ca1 position. Call light in reach. Side rails up X2. mobile home laborer on. Pulse ox on. NIBP on. Warm blanket given. 11:47 Initial lab(s) drawn, by me, sent to lab. Strep swab sent to lab. Inserted saline lock: ca1 20 gauge in right antecubital area, using aseptic technique. Blood collected. 12:35 XRAY Chest (1 view) In Process Unspecified. EDMS 12:45 Repeat lab(s) drawn. sent to lab. ca1 13:42 Fabian Kowalski PA is Hospitalizing Provider. snw 15:11 Inserted saline lock: 18 gauge in left antecubital area, using aseptic technique. 4 16:24 No provider procedures requiring assistance completed. Patient admitted, IV remains in ca1 place. Administered Medications: Discontinued: NS 0.9% 1000 ml IV at 125 ml/hr continuous 11:50 Drug: NS 0.9% 1000 ml Route: IV; Rate: 125 ml/hr; Site: right antecubital; ca1 14:00 Follow up: Response: No adverse reaction; IV Status: Infusion continued upon admission ca1 14:30 Drug: D5W with Sodium Bicarbonate 100 mEq/L 1000 ml Route: IV; Rate: 125 ml/hr; Site: ca1 right antecubital; 15:15 Follow up: Response: Adverse reaction, Physician notified; IV Status: Infusion ca1 continued upon admission Outcome: 13:43 Decision to Hospitalize by Provider. snw 17:05 Admitted to Med/surg accompanied by tech, via wheelchair, room 228, with chart, Report ca1 called to APOLLO Vega 17:05 Condition: stable 17:05 Instructed on the need for admit. 17:36 Patient left the ED. ca1 Signatures: Dispatcher [employer] EDMS Tali Montejo, FARMER DIVERSIFIED CROPS-C FARMER DIVERSIFIED CROPS-Csnw Sammy Schwarz RN RN em Peltier, Brian, RN RN bp Acob, Cheryl, RN RN ca1 Paul Resendiz [facility] Deloris Watters [facility] Corrections: (The following items were deleted from the chart) 10:04 10:01 Pulse 103bpm; Resp 18bpm; Pulse Ox 100% RA; Temp 98.6F; 60.33 kg; Height 4 ft. 11 em in.; BMI: 26.8; Pain 0/10; em 16:32 16:23 BP 94 / 55; Pulse 99bpm; Resp 18bpm; Spontaneous; Pulse Ox 100% RA; ca1 ca1
--- OUTSIDE RECORDS SUMMARY | 2020-02-11 14:43 | XMS REPORT | Clinical Summary ---
:1995 Author Organization [facility] Address [facility] [place] [address] Care Team Providers Name Role Phone Unavailable Primary Care Provider Unavailable Allergies Active Allergy Reactions Severity Noted Date Comments Amoxicillin-Pot Clavulanate 03/01/2009 Penicillins 03/01/2009 Medications Medication Sig Dispensed Refills Start Date End Date Status hydroxychloroquine Take 200 mg by 0 Active (PLAQUENIL) 200 mg tablet mouth daily. ferrous sulfate 325 mg Take 325 mg by 0 Active (65 mg iron) tablet mouth daily (with breakfast). aspirin (ASPIRIN) 81 mg Chew and 0 Active chewable tablet swallow 81 mg by mouth daily. sertraline (ZOLOFT) 50 mg Take 50 mg by 0 Active tablet mouth daily. atovaquone (MEPRON) 750 Take 10 mL by 210 mL 0 05/01/2017 Active mg/5 mL oral suspension mouth daily. folic acid (FOLVITE) 1 mg Take 1 tablet 90 tablet 3 05/01/2017 Active tablet by mouth daily. sennosides-docusate Take 1 tablet 30 tablet 3 05/01/2017 Active sodium (SENNA PLUS) by mouth 8.6-50 mg tablet daily. hydroxychloroquine Take 1 tablet 30 tablet 3 05/01/2017 Active (PLAQUENIL) 200 mg tablet by mouth daily. omeprazole (PRILOSEC) 20 Take 2 60 capsule 3 05/01/2017 Active mg delayed release capsules by capsule mouth daily. mycophenolate (CELLCEPT) Take 3 tablets 90 tablet 3 05/01/2017 Active 500 mg tabletIndications: by mouth 2 Acquired hemolytic times daily. anemia, Systemic lupus erythematosus with glomerular disease, unspecified SLE type predniSONE (DELTASONE) 20 Take 3 tablets by mouth kendell y Take 60mg (3 tablets) daily for 4 weeks 90 tablet 2 05/01/2017 Active mg tablet Take 50mg (2.5 tablets) daily for 2 weeks Then take 40mg (2 tablets) daily until seen in clinic. ondansetron (ZOFRAN) 4 mg Take 1 tablet 20 tablet 0 05/01/2017 Active tablet by mouth every 8 hours as needed for up to 5 doses for Nausea. 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 Menorrhagia with regular cycle Uterine leiomyoma Acquired hemolytic anemia Current use of steroid medication High risk medication use Lupus nephritis Proteinuria Family History Medical History Relation Name Comments Heart failure Father Diabetes Maternal Grandfather Heart failure Maternal Grandfather Stomach cancer Maternal Grandmother Cerebral aneurysm Mother Heart failure Mother Hyperthyroidism Mother Relation Name Status Comments Father Maternal Grandfather Maternal Grandmother Mother Social History Tobacco Use Types Packs/Day Years Used Date Never Smoker Smokeless Tobacco: Never Used Alcohol Use Drinks/Week oz/Week Comments No Sex Assigned at Date Recorded Not on file Job Start Date Occupation Industry Not on file Not on file Not on file Travel History Travel Start Travel End No recent travel history available. Last Filed Vital Signs Not on file Plan of Treatment Health Maintenance Due Date Last Done Comments Cervical Cancer Scrn (3 Yrs) 2014 IMM Influenza Seasonal Apr to September (>/= 19 yrs) 04/24/2020 Results Not on fileafter 02/10/2019 Insurance Payer Benefit Plan / Subscriber ID Effective Dates Phone Addre ss Type Group [facility] SELF-PAY xxxxxxxxx 2017-Prese [phone] [id number] SELF-PAY [address] [place] [address] [address] (Home) [employer] [phone] (Work) Advance Directives Code Status Date Activated Date Inactivated Comments Full Code 04/21/2017 12:28 PM 05/01/2017 8:31 PM
--- OUTSIDE RECORDS SUMMARY | 2020-02-11 14:44 | XMS REPORT | Clinical Summary ---
:1995 Author Organization [facility] Address [address] [place] [address] Care Team Providers Name Role Phone Asked, No Pcp Primary Care Provider Unavailable Allergies Active Allergy Reactions Severity Noted Date Comments Penicillins Shortness Of Breath High 02/21/2018 Medications No known medications Active Problems Not on file Social History Tobacco Use Types Packs/Day Years [...] Health Maintenance Due Date Last Done Comments CERVICAL CANCER SCREENING 2014 INFLUENZA VACCINE 02/23/2020 Results Not on fileafter 02/10/2019 Insurance Payer Benefit Plan / Subscriber ID Effective Dates Phone Addre ss Type Group CVCP CVCP BCBS xxxxxxxxxxxx 2015-Present [address] [place] [address] ([place]) [address] [place] [address] [place] [id number] Advance Directives For more information, please contact: [phone] Type Date Recorded Patient Litigation Docket Manager Explanati on Advance Directives, 06/02/2016 11:51 PM Living Will and Medical Power of [employer] Supervisor Advance Directives, 06/03/2016 1:17 AM Living Will and Medical Power of [employer] Supervisor
--- OUTSIDE RECORDS SUMMARY | 2020-02-11 14:44 | XMS REPORT | Continuity of Care Document ---
:1995 Author Organization [facility] t Address [address] [place] [address] Care Team Providers Name Role Phone Asked, No Pcp Primary Care Physician Unavailable Aury SHIRT SORTER, G Attending Clinician Doctor Unassigned, Name Attending Clinician Unavailable Problems Condition Condition Condition Status Onset Resolution Last Treating Co mments Source Name Details Category Date Date Treatment Clinician Date Thyroid Thyroid Disease Active 2016-07 [facility] lesion lesion 0 Health 00:00: 00 Lymphadeno Lymphadeno Disease Active H maria l skaggs, 04-23 Health cervical cervical 00:00: 00 Anemia Anemia Disease Active [facility] 04-21 Health 00:00: 00 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 00:00: mason with mason with 00 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 00:00: 00 Menorrhagi Menorrhagi Disease Active H shannonis a with a with Health regular regular cycle cycle Uterine Uterine Disease Active Jose Enrique leiomyoma leiomyoma [facility]al [facility] 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 [facility]al [facility] anemia anemia Current Current Disease Active Jose Enrique use of use of Health steroid steroid medication medication High risk High risk Disease Active Jason ris medication medication He alth use use Lupus Lupus Disease Active [place] nephritis nephritis [facility]al [facility] 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 Allergies, Adverse Reactions, Alerts Allergy Allergy Status Severity Reaction(s) Onset Inactive Treating Comm ents Source Name Type Date Date Clinician Penicill Propensi Active Shortness Of [place] ins ty to Breath 02-21 Methodi adverse 00:00: st reaction 00 s to drug Amoxicil Propensi Active [place] mariela-Pot ty to 03-01 Health Clavulan adverse 00:00: ate reaction 00 s to drug Penicill Propensi Active [place] ins ty to 03-01 Health adverse 00:00: reaction 00 s to drug Family History Family Member Diagnosis Comments Start Date Stop Date Source Natural father Heart failure [facility] Maternal grandfather Diabetes [facility] Maternal grandfather Heart failure [facility] Maternal grandmother Stomach cancer [facility] Natural mother Cerebral aneurysm [facility] Natural mother Heart failure [facility] Natural mother Hyperthyroidism [facility] Social History Social Habit Start Date Stop Date Quantity Comments Source Sex Assigned At [facility] Alcohol Comment 2018-02-21 2018-02-21 Occasionally [place] 00:00:00 00:00:00 [facility] Alcohol intake 2017-04-24 2017-04-24 Current non-drinker [facility] 00:00:00 00:00:00 of alcohol (finding) Smoking Status Start Date Stop Date Source Never smoker [facility] Medications Ordered Filled Start Stop Current Ordering Indication Dosage Frequency Signature Comments Components Source Medication Medication Date Date Medication? Clinician (SIG) Name Name hydroxychlo 2016-07 Yes 200mg QD Take 200 H arris roquine 0-08 mg by [facility] (PLAQUENIL) 18:25: mouth 200 mg 57 daily. tablet ferrous 2016-07 Yes 325mg QD Take 325 Harri s sulfate 325 0-08 mg by [facility] mg (65 mg 18:25: mouth iron) 57 daily tablet (with breakfast) . aspirin 2016-07 Yes 81mg QD Chew and [facility] (ASPIRIN) 0-08 swallow 81 Heal th 81 mg 18:25: mg by chewable 57 mouth tablet daily. sertraline 2016-07 Yes 50mg QD Take 50 mg H arrlaw (ZOLOFT) 50 0-08 by mouth Heal th mg tablet 18:25: daily. 57 atovaquone 2016-07 Yes 1500mg QD Take 10 mL [facility] (MEPRON) 0-08 by mouth Health 750 mg/5 mL 00:00: daily. oral 00 suspension folic acid 2016-07 Yes 1mg QD Take 1 Harri s (FOLVITE) 1 0-08 tablet by [facility] lth mg tablet 00:00: mouth 00 daily. sennosides- 2016-07 Yes 1{tbl} QD Take 1 Stahl rris docusate 0-08 tablet by Health sodium 00:00: mouth (SENNA 00 daily. PLUS) 8.6-50 mg tablet hydroxychlo 2016-07 Yes 200mg QD Take 1 Jason ris roquine 0-08 tablet by [facility] (PLAQUENIL) 00:00: mouth 200 mg 00 daily. tablet omeprazole 2016-07 Yes 40mg QD Take 2 Harri s (PRILOSEC) 0-08 capsules Healt h 20 mg 00:00: by mouth delayed 00 daily. release capsule mycophenola 2016-07 Yes Systemic 1500mg Q.5D Take 3 [facility] te 0-08 lupus tablets by [facility] (CELLCEPT) 00:00: erythematos mouth 2 500 mg 00 us with times tablet glomerular daily. disease, unspecified SLE type predniSONE 2016-07 Yes 60mg QD Take 3 Harri s (DELTASONE) 0-08 tablets by He alth 20 mg 00:00: mouth tablet 00 daily Take 60mg (3 tablets) daily for 4 weeksTake 50mg (2.5 tablets) daily for 2 weeksThen take 40mg (2 tablets) daily until seen in clinic. ondansetron 2016-07 Yes 4mg Take 1 Glenny is (ZOFRAN) 4 0-08 tablet by Heal th mg tablet 00:00: mouth 00 every 8 hours as needed for up to 5 doses for Nausea. Procedures This patient has no known procedures. Plan of Care Planned Activity Planned Date Details Comments Source Future Scheduled 2020-04-[address] [facility] Test 00:00:00 Seasonal Apr to September (>/= 19 yrs) [code = IMM Influenza Seasonal Apr to September (>/= 19 yrs)] Future Scheduled 2020-02-23 INFLUENZA VACCINE Beto roman [facility] Test 00:00:00 [code = INFLUENZA VACCINE] Future Scheduled 2014 Screening for [facility] Test 00:00:00 malignant neoplasm of cervix (procedure) [code = 148485964] Future Scheduled 2014 Screening for Jose Enrique [facility] Test 00:00:00 malignant neoplasm of cervix (procedure) [code = 999233539] Encounters Start End Encounter Admission Attending Care Care Encounter Source Date/Time Date/Time Type Type Clinicians Facility Department ID 2019-10-05 2019-10-05 Emergency KEELY Jeffers [id number] 17:16:57 20:21:00 Kate Duque [id number] [place] [id number] [facility] [id number] 2019-10-05 2019-10-05 Orders Doctor CHATA [id number] 00:00:00 00:00:00 Only Unassigned, ELIZABETH [id number] [place] [id number] 2017-06-03 2017-06-03 Outpatient [facility] [id number] [place] 00:00:00 00:00:00 Health 2017-04-26 2017-04-26 Outpatient [facility] [id number] [place] 07:37:31 07:37:31 Health 2017-04-24 2017-04-24 Outpatient [facility] [id number] [place] 07:21:26 07:21:26 Health 2017-04-23 2017-04-23 Outpatient [facility] [id number] [place] 15:25:08 15:25:08 Health 2017-04-22 2017-04-22 Outpatient [facility] [id number] [place] 10:38:27 10:38:27 Health 2017-04-21 2017-04-21 Emergency [facility] [id number] [place] 04:19:42 04:19:42 Health 2017-04-21 2017-04-21 Inpatient [facility] [id number] [place] 00:52:05 00:52:05 [facility] 2017-04-19 2017-04-19 Emergency [facility] [id number] [place] 18:41:35 18:41:35 Health Results This patient has no known results.
[2020-02-11] MEDS ORDERED: D5W 1,000 ML with NA BICARB 8.4% 100 MEQ IV SCH ×2 (15:00)
[2020-02-11] MEDS: NA CHLORIDE 0.9% 1,000 ML IV SCH (16:00)
--- NOTE | 2020-02-11 16:00 | P.HP ---
Certification for Inpatient With expected LOS: >2 Midnights Patient will require the following post-hospital care: None Practitioner: I am a practitioner with admitting privileges, knowledge of patient current condition, hospital course, and medical plan of care. Services: Services provided to patient in accordance with Admission requirements found in Title 42 Section 412.3 of the Code of Federal Regulations <Fabian Kowalski - Last Filed: 02/11/20 15:47> Patient History Date of Service: 02/11/20 Primary Care Provider: [facility] Reason for admission: Acute renal failure/lupus/anemia History of Present Illness: 24-year-old female with past medical history of lupus, anemia that presents to the emergency room complaining of shortness of breath, sore throat, low-grade fever that started approximately a month ago and has progressively worsened. Patient states that she also has been having an inter mittent cough. Patient denies any contact with a known Covid positive person. Patient states that in 2007 she was diagnosed with lupus. At that time she was also told she had congestive heart failure and underwent a pericardial window. She was seeing a retail analytics manager in [facility] but moved to [place] several years ago and has not followed up with anyone. States that she has been on prednisone 10 mg daily for the last 10-12 years. She also had a kidney biopsy- date unknown. In the emergency room patient is found to be in acute renal failure and with severe anemia with a creatinine level of 9.55, BUN of 79, an H&H of 3.3/9. Her proBNP is 8398. She is not requiring O2 support at this time. She is afebrile with a temperature reading of 98.6 on arrival to ED. Vitals were also stable with a blood pressure of 117/68, a pulse of 103, respiratory rate of 18 and oxygen saturations of 100% on room air. Her test is negative. Urine is negative. On physical exam patient is calm. She is in no distress. Is not having cough, does not feel febrile and is doing well after some IV fluids and initial treatment in the ED. ED will initiate 2 units of PRBC blood transfusion. P atient will be admitted to hospital and further evaluated. Home medications list reviewed: No - Past Medical/Surgical History Diabetic: No -: Lupus -: Acute renal failure -: Congestive heart failure status post pericardial window in 2007 -: Anemia -: Right kidney biopsy -: Pericardial window Psychosocial/ Personal History: . Lives at home with . No children - Family History Mother -: Heart disease, Kidney disease - Social History Smoking Status: Never smoker Alcohol use: No CD- Drugs: No Caffeine use: No Place of Residence: Home <SamariajoannagaganFabian valenzuela - Last Filed: 02/11/20 15:47> Date of Service: 02/11/20 <LewisMichele Hua - Last Filed: 02/11/20 16:44> Review of Systems General: Fever, Malaise, As per HPI Eyes: Vision Change (Complaining of decreased visual acuity after watching TV or computer screen for a few hr.) ENT: Unremarkable Respiratory: Cough, Shortness of Breath, SOB with Excertion Cardiovascular: Unremarkable Gastrointestinal: Nausea, Vomiting Genitourinary: Unremarkable Musculoskeletal: Unremarkable Integumentary: Unremarkable Neurological: Weakness <SamariajoannaFabian driscoll - Last Filed: 02/11/20 15:47> Physical Examination - Vital Signs Temperature: 98.6 F Blood Pressure: 103/67 Pulse: 100 Respirations: 18 Pulse Ox (%): 98 (RA) - Physical Exam General: Alert, In no apparent distress, Oriented x3 HEENT: Atraumatic, Normocephalic, PERRLA Neck: Supple, No Thyromegaly, Other (Trachea midline) Respiratory: Clear to auscultation bilaterally, Normal air movement Cardiovascular: No edema, Normal pulses, Normal S1 S2 Capillary refill: <2 Seconds Gastrointestinal: Normal bowel sounds, Soft and benign, Non-distended Musculoskeletal: No clubbing, No swelling, No contractures Integumentary: No rashes, No breakdown, No significant lesion, No tenderness/swelling Neurological: Normal gait, Normal speech, Normal strength at 5/5 x4 extr, Normal tone Other Physical/Emotional Findings: Pleasant and cooperative - Studies Laboratory Data (last 24 hrs) 02/11/20 11:57: PT 11.5, INR 0.97 02/11/20 11:57: WBC 3.9 L, Hgb 3.3 L*, Hct 9.0 L*, Plt Count 125 L 02/11/20 11:57: Sodium 141, Potassium 4.3, BUN 79 H, Creatinine 9.55 H*, Glucose 99, Magnesium 1.7 L, Total Bilirubin 1.3 H, AST 15, ALT 11 L, Alkaline Phosphatase 57 Microbiology Data (last 24 hrs): 02/11/20 12:02 Throat Group A Streptococcus Rapid Screen - Final <Fabian Kowalski - Last Filed: 02/11/20 15:47> - Studies Laboratory Data (last 24 hrs) 02/11/20 11:57: PT 11.5, INR 0.97 02/11/20 11:57: WBC 3.9 L, Hgb 3.3 L*, Hct 9.0 L*, Plt Count 125 L 02/11/20 11:57: Sodium 141, Potassium 4.3, BUN 79 H, Creatinine 9.55 H*, Glucose 99, Magnesium 1.7 L, Total Bilirubin 1.3 H, AST 15, ALT 11 L, Alkaline Phosphatase 57 Microbiology Data (last 24 hrs): 02/11/20 12:02 Throat Group A Streptococcus Rapid Screen - Final <Michele Saucedo - Last Filed: 02/11/20 16:44> Assessment and Plan - Plan Impression: Acute kidney failure complicated by a history of lupus, chronic anemia and possible nephritis: History of lupus: Severe Anemia of chronic disease: Congestive heart failure status post pericardial window in 2007: Plan: Acute kidney failure complicated by a history of lupus, chronic anemia and possible nephritis: Patient noted to have a significantly elevated creatinine level of 9.5 on admission. This is likely secondary to a history of lupus, chronic anemia and nephritis. Patient has not seen a retail analytics manager and few years. States she has been taking prednisone 10 mg daily dose for greater than 10 years. [facility]. UA showing 3+ protein and 1+ blood consistent with nephritis. Patient already started on IV fluids. Will consult Nephrology Dr. Bray. Will monitor daily labs and await recommendations. History of lupus: The patient was diagnosed with lupus in 2007. She was seeing a retail analytics manager in [facility] but moved to [facility] and has not seen a retail analytics manager in many years. Patient will likely benefit following up with the retail analytics manager on discharge. Severe Anemia of chronic disease: Patient noted to have the H&H of 3.3/9.0 on admission. ER started patient on 2 units PRBCs. Will continue monitoring H&H. Patient denies GI bleeding and there is no indication that the patient is bleeding. Admits to a long history of chronic anemia secondary to her lupus. Congestive heart failure status post pericardial window in 2007: Patient states that she was told she had congestive heart failure in 2007 when she was diagnosed with lupus. States that at that time she was noted to have a pericardial effusion and underwent pericardial window which resolve her issue. On admission it is noted that her BNP is elevated at 8398. Will order echocardiogram for further evaluation. Will consider cardiology consultation based on findings of echocardiogram. Will place patient on telemetry and monitor. Discharge Plan: Home Plan to discharge in: 72 Hours - Advance Directives Does patient have a Living Will: No Does patient have a Durable POA for Healthcare: No - Code Status/Comfort Care Code Status Assessed: Yes Time Spent Managing Pts Care (In Minutes): 55 <Fabian Kowalski - Last Filed: 02/11/20 15:47>
[2020-02-11 18:05] VITALS: BMI 26.9
[2020-02-11] MEDS: HEPARIN 5000 UNIT/ML 1 ML VIAL SQ SCH (18:43)
[2020-02-11] MEDS ORDERED: MAGNESIUM SULFATE 1 gm IVPB 1 GM/100 ML BAG IV ONE (19:00)
[2020-02-11 20:53] LABS: Phosphorus 5.8 mg/dL (2.5-4.9); Uric Acid 11.4 mg/dL (2.6-6.0)
[2020-02-12] MEDS: NA CHLORIDE 0.9% 1,000 ML IV SCH (00:16)
[2020-02-12] MEDS: HEPARIN 5000 UNIT/ML 1 ML VIAL SQ SCH (00:24)
--- NOTE | 2020-02-12 00:35 | CON ---
Date of Consultation: 02/11/2020 Chief Complaint: Acute kidney injury. History Of Present Illness: Acute kidney injury, severe, associated with acute and chronic anemia. The patient presented to the hospital because of generalized weakness. The patient was found to have severe hyperazotemia, BUN 79, creatinine 9.55. Electrolytes as follows; sodium 141, potassium 4.3, chloride 116, CO2 of 16, glucose 99, and calcium 7.1. The patient has history of lupus. She has bee n seen by elevator adjuster at [place], [place]. She recently moved to [place]. Blood work done on December, showed BUN of 11 and creatinine of 0.85. The patient has severe acute kidney injury. The tammy good was found to have anemia, hemoglobin level is 3.3 and hematocrit is 9.0. The patient will have blood transfusion. Previously on January 13, 2019, hemoglobin was 11.6. The patient is admitted to [facility]. She will have blood transfusion today. She was found to have severe acute kidney injury . Plan is to monitor urine output. The patient has history of SLE and chronic anemia. The patient is 24-year-old female with past medical history of SLE, anemia, and she presented to the hospital because of shortness of breath, sore throat, low-grade fever. She became ill and short of breath over last several days. The patient was complaining of intermittent cough. She denied co ntact with COVID positive person. She was diagnosed with lupus back in 2007. She at that time had c ongestive heart failure and underwent pericardial window for pericardial effusion with tamponade. Samaria vergara was seen by elevator adjuster in [place], [place] and recently was on prednisone 10 mg daily and was treate d with prednisone over last 10 to 12 years. She had kidney biopsy done, but she does not recall resu lts of the kidney biopsy. In the emergency room, she was evaluated and was found to have creatinine of 9.55, BUN 79, H and H of 3.3 and 9. BNP was 8398. She did not require O2 support, temperature wa s 98.6, blood pressure was 117/68, heart rate 103 and respiratory rate 18, SpO2 of 100%. IV fluids w ere initiated in the emergency room for acute kidney injury and the patient is to have 2 units of pac ked red blood cell transfusion. Past Medical History: SLE, acute kidney injury, congestive heart failure, status post pericardial wi ndow in 2008, chronic anemia, right kidney biopsy. Family History: Mother; heart disease, kidney disease. Social History: Denies tobacco, alcohol, or illicit drugs. Review of Systems: General: Complains of fever and malaise. Eyes: Denies vision changes, was complaining of some decreased vision over last several months. Respiratory: Was complaining of nonproductive cough, shortness of breath with exacerbation. Cardiovascular: Denies chest pain or syncope. Gastrointestinal: Was complaining of nausea and vomiting. : Denies hematuria or dysuria. Musculoskeletal: Denies muscle aches or joint swelling. All other systems reviewed and all are negative. Physical Examination: Vital Signs: Blood pressure 103/67, heart rate 100, respiratory rate 18, and SpO2 of 98%. Eyes: Anicteric sclerae. EOMI. Ears, Nose, Mouth and Throat: Oral mucosa moist. No pallor. Neck: Supple, no bruits. Lungs: Diminished breath sounds at bases. Heart: S1 and S2. Abdomen: Soft, benign, obese, nontender. No rebound. No guarding. Extremities: No edema. No clubbing. No cyanosis. Neurological: Moving extremities. Cranial nerves intact. Psychiatric: Alert and oriented x3. Normal affect. Laboratory Data: WBC 3.9, hemoglobin 3.3, hematocrit 9.0, and platelet count 125,000. PT 11.5, INR 0.97, sodium 141, potassium 4.3, BUN 79, creatinine 9.55, glucose 99, magnesium 1.7, total bilirubin 1.3, AP 57, AST 15, ALT 11. Impression And Plan: 1.Severe acute kidney injury. The patient will have IV fluids to prevent renal hypoperfusion. Adam mmend to avoid nonsteroidal anti-inflammatory medication. The patient has history of lupus and she h ad kidney biopsy done at [place], [place]. Plan is to obtain medical records from her elevator adjuster. In 2019, blood work showed relatively stable kidney function without kidney insufficiency. 2.Severe anemia, acute on chronic. The patient will have blood transfusion. The patient needs a wo rkup for acute and chronic anemia. 3.Monitor urine output. The patient has severe acute kidney injury. Check CK level to rule out rha bdomyolysis. The patient is undergoing workup to rule out infection including COVID infection, the p atient will have antibiotics for pneumonia. 4.Plan is to check renal ultrasound to rule out obstructive uropathy and check vasculitis panel to r ule out rapidly progressive glomerulonephritis. The patient may need renal biopsy done during this a dmission if renal function does not improve. JAZIEL/[place] Voice ID: [id number] Report ID: [id number]
[2020-02-12 04:20] LABS: Albumin 2.4 g/dL (3.4-5.0); Bilirubin Total 1.3 mg/dL (0.2-1.0); Potassium 4.5 mmol/L (3.5-5.1); Protein, Total 7.1 g/dL (6.4-8.2)
[2020-02-12 05:15] LABS: Absolute Lymphocytes (CBC) 1.5 K/uL (0.7-4.9); Basophils % 0.8 % (0-1.3); MPV 8.5 fL (7.6-11.3)
[2020-02-12 05:16] LABS: RBC Red Blood Cell Count < 1.05 M/uL (3.86-4.86)
[2020-02-12 05:21] LABS: Hematocrit 8.1 % (36.0-45.0)
[2020-02-12] MEDS ORDERED: NA CHLORIDE 0.9% 250 ML ONE (05:23)
[2020-02-12 05:57] LABS: Arterial Blood Carboxyhemoglob 3.6 % (0-1.5); Blood Gas Oxyhemoglobin 94.8 % (94-97); Blood O2 Saturation 99.6 % (92-98.5)
[2020-02-12] MEDS: D5W 1,000 ML with NA BICARB 8.4% 100 MEQ IV SCH ×4 (06:00→15:38)
[2020-02-12] MEDS ORDERED: CALCIUM GLUC 10% INJ 9.3 MEQ in NA CHLORIDE 0.9% 100 ML IV ONE (06:00)
[2020-02-12] MEDS: ACETAMINOPHEN 500 MG TAB PO PRN (09:27)
--- NOTE | 2020-02-12 10:17 | EKG ---
Test Date: 2020-02-11 Test Time: 12:06:42 Mental Health Social Worker: PRAFUL MEASUREMENT RESULTS: Intervals: Rate: 94 HI: 146 QRSD: 70 QT: 374 QTc: 467 [place]: P: 40 HI: 146 QRS: 62 T: 49 INTERPRETIVE STATEMENTS: Normal sinus rhythm Normal ECG No previous ECG available for comparison Electronically Signed On 02-12-20 10:14:02 CDT by Venkata Ramirez
--- NOTE | 2020-02-12 10:35 | P.PN ---
Subjective Date of Service: 02/12/20 Primary Care Provider: [facility] Chief Complaint: Acute renal failure/lupus/anemia Subjective: No new changes, No C/O voiced <Hugo Asencio - Last Filed: 02/12/20 10:32> Date of Service: 02/12/20 <Michele Saucedo - Last Filed: 02/12/20 14:33> Review of Systems Unremarkable <Hugo Asencio - Last Filed: 02/12/20 10:32> Physical Examination - Vital Signs Temperature: 99.4 F Blood Pressure: 103/55 Pulse: 100 Respirations: 18 Pulse Ox (%): 99 - Physical Exam General: Alert, In no apparent distress HEENT: Atraumatic, PERRLA, EOMI Neck: Supple, JVD not distended Respiratory: Clear to auscultation bilaterally, Normal air movement Cardiovascular: Regular rate/rhythm, Normal S1 S2 Gastrointestinal: Normal bowel sounds, No tenderness Musculoskeletal: No tenderness Integumentary: No rashes Neurological: Normal speech, Normal tone, Normal affect Lymphatics: No axilla or inguinal lymphadenopathy Other Physical/Emotional Findings: Pleasant and cooperative - Studies Laboratory Data (last 24 hrs) 02/11/20 11:57: PT 11.5, INR 0.97 02/11/20 11:57: WBC 3.9 L, Hgb 3.3 L*, Hct 9.0 L*, Plt Count 125 L 02/11/20 11:57: Sodium 141, Potassium 4.3, BUN 79 H, Creatinine 9.55 H*, Glucose 99, Magnesium 1.7 L, Total Bilirubin 1.3 H, AST 15, ALT 11 L, Alkaline Phosphatase 57 Microbiology Data (last 24 hrs): 02/11/20 12:02 Throat Group A Streptococcus Rapid Screen - Final Medications List Reviewed: Yes <Hugo Asencio - Last Filed: 02/12/20 10:32> - Studies Microbiology Data (last 24 hrs): 02/11/20 12:02 Throat Group A Streptococcus Rapid Screen - Final <Michele Saucedo - Last Filed: 02/12/20 14:33> Assessment & Plan Discharge Plan: Home Plan to discharge in: Greater than 2 days - Code Status/Comfort Care Code Status Assessed: Yes (Patient is full code) Physician Review Additional Text: Impression: Acute kidney failure complicated by a history of lupus, chronic anemia and possible nephritis: History of lupus: Severe Anemia of chronic disease: Congestive heart failure status post pericardial window in 2008: Plan: Acute kidney failure complicated by a history of lupus, chronic anemia and possible nephritis: Patient noted to have a significantly elevated creatinine level of 9.5 on admission. This is likely secondary to a history of lupus, chronic anemia and nephritis. Patient has not seen a statement request clerk and few years. States she has been taking prednisone 10 mg daily dose for greater than 10 years. Prescription given by PCP at the [facility]. UA showing 3+ protein and 1+ blood consistent with nephritis. Patient already started on IV fluids. Patient's creatinine has decreased to 8.8. Will continue with IV fluids, nephrology will continue to follow patient. Patient may need to have renal biopsy. 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 Patient need to follow up with Nephrology and rheumatology at discharge. History of lupus: The patient was diagnosed with lupus in 2007. She was seeing a statement request clerk in [facility] but moved to [facility] and has not seen a statement request clerk in many years. Patient will likely benefit following up with the statement request clerk on discharge. Severe Anemia of chronic disease: Patient currently being transfused, upon unit 1 of 2. Will repeat H&H after 2nd unit. Will continue to transfuse to a hemoglobin of 7-8. Congestive heart failure status post pericardial window in 2008: Patient states that she was told she had congestive heart failure in 2007 when she was diagnosed with lupus. States that at that time she was noted to have a pericardial effusion and underwent pericardial window which resolve her issue. On admission it is noted that her BNP is elevated at 8398. Awaiting results from echocardiogram, Will consider cardiology consultation based on findings of echocardiogram. Will place patient on telemetry and monitor. Will give Lasix with blood transfusion. Critical Care: No Time Spent Managing Pts Care (In Minutes): 55 <Hugo Asencio - Last Filed: 02/12/20 10:32> Physician Review Additional Text: Patient was seen and examined Agree with the above assessment plan <Michele Saucedo - Last Filed: 02/12/20 14:33>
[2020-02-12] MEDS ORDERED: EPOETIN 4,000 UNIT/ML VIAL IV SCH (14:45)
--- NOTE | 2020-02-12 14:53 | P.PN ---
Subjective Date of Service: 02/12/20 Primary Care Provider: [facility] Chief Complaint: Acute renal failure/lupus/anemia Subjective Pt with Hx of SLE, pericardial effusion in 2007 S/P window, CKD had biopsy at age ~11 , was on cellcept and hydroxychloroquine pt had no blood w/u or Rhumatology and nephrology F/U for more than 6yrs presented with symptomatic anemia Cr ~0.9 , HB <4.0 Today no over nigth events plan for 2 PRBC Rhumatologist office contacted for old records pending serology and US results will satrt epogen and PO bicarb if US showed echogenic kidneys and old records compatible with CKD then pt inlikely to benefit from biopsy and will need to start/prepare for HD this admission , otherwise will proceed with Biopy once Hb stable Physical exam general: AAOX3, NAD , obese Neck; Supple, No elevated JVD hear: RRR, normal S1,2 no murmur or rub Chest: CTAB, no rlaes or wheezes Abdomen: Soft , Nt Extremities No edema or ulcer A/P LILIYA vs 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 pending US and serology renal dose meds if US showed echogenic kidneys and old records compatible with CKD then pt inlikely to benefit from biopsy and will need to start/prepare for HD this admission , otherwise will proceed with Biopsy once Hb stable Symptomatic anemia likely due to CKD and lupus transfuse to keep Hb >7.0 will start epogen SLE hold cellcept due to anemia cont plaquinel F/U markers will start on steroids if shows active disease HAGMA will start po bicarb total time spent 45 min Physical Examination - Vital Signs Temperature: 99.4 F Blood Pressure: 103/55 Pulse: 100 Respirations: 18 Pulse Ox (%): 99 - Physical Exam Other Physical/Emotional Findings: Pleasant and cooperative - Studies Microbiology Data (last 24 hrs): 02/11/20 12:02 Throat Group A Streptococcus Rapid Screen - Final Medications List Reviewed: Yes
[2020-02-12] MEDS ORDERED: METHYLPRED NA SUC 1,000 MG in NA CHLORIDE 0.9% 100 ML IV ONE (14:58)
[2020-02-12] MEDS: FERROUS SULFATE 325 MG TAB PO SCH ×2 (15:32→22:22)
[2020-02-12] MEDS: ONDANSETRON 4 MG/2 ML VIAL IV PRN (16:49)
--- NOTE | 2020-02-12 19:19 | RAD REPORT ---
EXAM DESCRIPTION: US - Renal Ultrasound-Complete - 02/12/2020 6:09 pm CLINICAL HISTORY: arf Flank pain COMPARISON: No comparisons FINDINGS: Both kidneys are echogenic. The right kidney measures 11.8 x 5.3 x 4.9 cm. No hydronephrosis, focal mass or perinephric fluid. The left kidney measures 10.5 x 6.1 x 5.2 cm. No hydronephrosis, focal mass or perinephric fluid. The urinary bladder is incompletely distended without gross abnormality seen. IMPRESSION: Bilateral echogenic kidneys are present compatible with underlying medical renal disease .
[2020-02-12] MEDS ORDERED: FUROSEMIDE 40 MG/4 ML VIAL IV ONE (19:31)
[2020-02-12] MEDS ORDERED: EPOETIN 4,000 UNIT/ML VIAL SQ SCH ×2 (21:00→23:36)
[2020-02-12] MEDS ORDERED: EPOETIN ALFA-EPBX 4,000 UNIT/ML VIAL ONE (22:11)
[2020-02-12] MEDS: SODIUM BICARB 325 MG TAB PO SCH (22:22)
[2020-02-13] MEDS: D5W 1,000 ML with NA BICARB 8.4% 100 MEQ IV SCH ×4 (00:44→16:36)
[2020-02-13 05:15] LABS: Absolute Lymphocytes (CBC) 0.6 K/uL (0.7-4.9); Albumin 2.4 g/dL (3.4-5.0); Basophils % 0.5 % (0-1.3); Lymphocytes % 36.4 % (15.3-44.8); MPV 8.5 fL (7.6-11.3); Potassium 4.7 mmol/L (3.5-5.1); RBC Red Blood Cell Count 1.25 M/uL (3.86-4.86)
[2020-02-13 05:21] LABS: Hematocrit 14.4 % (36.0-45.0)
[2020-02-13 07:50] LABS: Anisocytosis 1+; Blood Morphology Comment NOTED (NOT SEEN); Platelet Estimate DECR; Polychromasia 1+; Urine White Blood Cell Casts OK
--- NOTE | 2020-02-13 08:12 | ECHO ---
HEIGHT: 4 ft 11 in WEIGHT: 134 lb 3.2 oz DATE OF STUDY: 09/14/[address]: Fabian Kowalski 2-DIMENSIONAL: YES M.MODE: YES DOPPLER: YES COLOR FLOW: YES TDS: NO PORTABLE: NO DEFINITY: NO BUBBLE STUDY: NO DIAGNOSIS: CONGESTIVE HEART FAILURE CARDIAC HISTORY: CATHERIZATION: NO SURGERY: NO PROSTHETIC VALVE: NO PACEMAKER: NO MEASUREMENTS (cm) DIASTOLIC (NORMALS) SYSTOLIC (NORMALS) IVSd 1.0 (0.6-1.2) LA Diam 3.6 (1.9-4.0) LVEF 66% LVIDd 3.4 (3.5-5.7) LVIDs 2.2 (2.0-3.5) %FS 36% LVPWd 1.0 (0.6-1.2) Ao Diam 2.6 (2.0-3.7) 2 DIMENSIONAL ASSESSMENT: RIGHT ATRIUM: NORMAL LEFT ATRIUM: NORMAL RIGHT VENTRICLE: NORMAL LEFT VENTRICLE: NORMAL TRICUSPID VALVE: NORMAL MITRAL VALVE: NORMAL PULMONIC VALVE: NORMAL AORTIC VALVE: NORMAL PERICARDIAL EFFUSION: NONE AORTIC ROOT: NORMAL LEFT VENTRICULAR WALL MOTION: NORMAL. DOPPLER/COLOR FLOW: TRACE OF TRICUSPID REGURGITATION. COMMENTS: TRACE OF TRICUSPID REGURGITATION. NORMAL LEFT VENTRICULAR SIZE AND FUNCTION. NO WALL MOTION ABNORMALITY. TECHNOLOGIST: KATHRYN RECINOS
[2020-02-13] MEDS: FERROUS SULFATE 325 MG TAB PO SCH ×3 (08:18→21:09)
[2020-02-13] MEDS: SODIUM BICARB 325 MG TAB PO SCH ×2 (08:18→21:09)
[2020-02-13] MEDS: predniSONE 10 MG TAB PO SCH (08:18)
[2020-02-13] MEDS: HYDROXYCHLOROQUINE 200MG TAB PO SCH (08:18)
[2020-02-13] MEDS: VENLAFAXINE HCL 75 MG TABLET PO SCH (08:19)
--- NOTE | 2020-02-13 11:01 | P.PN ---
Subjective Date of Service: 02/13/20 Primary Care Provider: [facility] Chief Complaint: Acute renal failure/lupus/anemia Review of Systems Unremarkable Physical Examination - Vital Signs Temperature: 97.2 F Blood Pressure: 148/79 Pulse: 72 Respirations: 18 Pulse Ox (%): 100 - Physical Exam General: Alert, In no apparent distress HEENT: Atraumatic, PERRLA, EOMI Neck: Supple, JVD not distended Respiratory: Clear to auscultation bilaterally, Normal air movement Cardiovascular: Regular rate/rhythm, Normal S1 S2 Gastrointestinal: Normal bowel sounds, No tenderness Musculoskeletal: No tenderness Integumentary: No rashes Neurological: Normal speech, Normal tone, Normal affect Lymphatics: No axilla or inguinal lymphadenopathy Other Physical/Emotional Findings: Pleasant and cooperative - Studies Microbiology Data (last 24 hrs): 02/11/20 12:02 Throat Culture & Sensitivity - Final NORMAL UPPER RESPIRATORY EDMOND GROWN. 02/11/20 11:29 Clean Catch Urine [place] Count - Final 02/11/20 11:29 Clean Catch Urine - Final No growth. Medications List Reviewed: Yes Assessment & Plan Discharge Plan: Home Plan to discharge in: Greater than 2 days - Code Status/Comfort Care Code Status Assessed: Yes (full code) Physician Review Additional Text: Impression: Acute kidney failure complicated by a history of lupus, chronic anemia and possible nephritis: History of lupus: Severe Anemia of chronic disease: Congestive heart failure status post pericardial window in 2007: Plan: Acute kidney failure complicated by a history of lupus, chronic anemia and possible nephritis: Patient kidney function has not improved with hydration, nephrology is recommending dialysis, General Surgery consulted for placement of Tessio, most likely will be completed tomorrow morning. Will need to arrange for outpatient HD. History of lupus: The patient was diagnosed with lupus in 2007. She was seeing a ships or barges loader in [facility] but moved to [facility] and has not seen a ships or barges loader in many years. Patient will likely benefit following up with the ships or barges loader on discharge. Severe Anemia of chronic disease: Patient given two units yesterday, HGB up to 5. Will transfuse another unit today. Congestive heart failure status post pericardial window in 2007: Patient states that she was told she had congestive heart failure in 2007 when she was diagnosed with lupus. States that at that time she was noted to have a pericardial effusion and underwent pericardial window which resolve her issue. On admission it is noted that her BNP is elevated at 8398. Awaiting results from echocardiogram, Will consider cardiology consultation based on findings of echocardiogram. Will place patient on telemetry and monitor. Will give Lasix with blood transfusion. Time Spent Managing Pts Care (In Minutes): 55
[2020-02-13 13:24] LABS: Urine Protein/Creatinine Ratio 3.15 ratio (<0.15)
--- NOTE | 2020-02-13 17:58 | PN ---
Date of Progress Note: 02/13/2020 Subjective: The patient was admitted with renal failure manifesting as chronic disease. The patient has background history of lupus. Apparently, the patient had lupus nephritis, been treated on CellCept. We still do not have the records, but ultrasound showing significant scarring on kidney. Kidney function did not improve on current plain hydration and steroid. Serology is still pending. Physical Examination: Vital Signs: Blood pressure 142/83, pulse of 77. The patient had urine output of 1100. Chest: Clear to auscultation. Heart: S1, S2. Regular. Systolic murmur. Abdomen: Soft, nontender. Extremities: No edema. Neurologic: Alert. No focal. Laboratory Data: WBC 1.7, H and H 5.2/14.4, platelets 130. Sodium 143, potassium 4.7, bicarb 18, chloride 114, BUN 76, creatinine of 9, calcium 7.5. Albumin 2.4, corrected calcium is 8.7. Urinalysis; specific gravity of 1.020, PC ratio of 3. Serology is still pending. Renal ultrasound showing 11.8 x 10.5 with echogenicity. Current Medications: The patient on include; 1. Cefazolin. 2. Solu-Medrol. 3. Epogen. 4. Effexor. 5. Tylenol. 6. Lasix. 7. Sodium bicarb 13 b.i.d. Assessment And Plan: 1. Lupus nephritis. I do not see the activity of the nephritis, but there is chronicity of the presentation. The patient had acidosis, had elevation in BUN with mild uremic symptoms. I had long discussion with the patient that with the finding on her lab the patient mostly has chronic kidney disease currently and I do not see activity on the UA to treat it as lupus nephritis right now, but the patient need to be initiated on renal replacement therapy. We discussed the modality of the renal replacement therapy. The patient given the financial status of her and being uninsured, unable to proceed with hemodialysis currently. We will consult surgery to place PermCath and we will start the patient on hemodialysis as in-house. I am going to go ahead and send for full serology to evaluate if there is any other systemic manifestation of her lupus giving the finding of leukopenia and thrombocytopenia and pancytopenia. 2. Lupus, manifested with exacerbation, doubted to be nephritis with renal exacerbation. I going to go ahead and send for the serology. The patient is already started on Solu-Medrol. I am going to send for LDH and haptoglobin to evaluate for any hemolysis. I agree with the Solu-Medrol for the time being. 3. Acidosis, non-anion gap metabolic acidosis, secondary to renal failure, questionable renal tubular acidosis, secondary to lupus. We will start the patient on oral sodium bicarb. 4. Hypocalcemia, mostly on the presence of secondary hyperparathyroidism. We will send for PTH, we will send for vitamin D, and we will follow up. 5. Hypertension, controlled, optimal. We will continue to monitor. 6. Anemia, not symptomatic. We will transfuse gradually and we will follow up. Differential is chronic kidney disease/hemolytic anemia on the presence of lupus. 7. Thrombocytopenia, secondary to lupus. [employer] Voice ID: [id number] Report ID: [id number] SOURAV
[2020-02-13] MEDS ORDERED: LORAZEPAM 1 MG TABLET PO SCH (23:59)
[2020-02-14] MEDS: D5W 1,000 ML with NA BICARB 8.4% 100 MEQ IV SCH ×6 (00:27→10:48)
[2020-02-14 04:47] LABS: Absolute Lymphocytes (CBC) 0.9 K/uL (0.7-4.9); Basophils % 0.3 % (0-1.3); Lymphocytes % 17.3 % (15.3-44.8); MPV 8.3 fL (7.6-11.3); RBC Red Blood Cell Count 0.91 M/uL (3.86-4.86)
[2020-02-14 04:51] LABS: Hematocrit 11.5 % (36.0-45.0)
[2020-02-14 05:06] LABS: Albumin 2.3 g/dL (3.4-5.0); Bilirubin Total 0.9 mg/dL (0.2-1.0); Ferritin 711.4 ng/mL (8-388); Phosphorus 5.2 mg/dL (2.5-4.9); Potassium 3.9 mmol/L (3.5-5.1); Protein, Total 6.8 g/dL (6.4-8.2)
[2020-02-14] MEDS ORDERED: CEFAZOLIN/NS 1gm 1 GM/50 ML BAG IVPB SCH (06:00)
--- NOTE | 2020-02-14 08:11 | P.PN ---
Subjective Date of Service: 02/14/20 Primary Care Provider: [facility] Chief Complaint: Acute renal failure/lupus/anemia Subjective: No new changes <JenniferisrealUhgo - Last Filed: 02/14/20 08:09> Date of Service: 02/14/20 <LewisMichele Kenneyaskar - Last Filed: 02/14/20 13:50> Review of Systems Unremarkable <Hugo Asencio - Last Filed: 02/14/20 08:09> Physical Examination - Vital Signs Temperature: 97.7 F Blood Pressure: 134/82 Pulse: 96 Respirations: 18 Pulse Ox (%): 99 - Physical Exam General: Alert, In no apparent distress HEENT: Atraumatic, PERRLA, EOMI Neck: Supple, JVD not distended Respiratory: Clear to auscultation bilaterally, Normal air movement Cardiovascular: Regular rate/rhythm, Normal S1 S2 Gastrointestinal: Normal bowel sounds, No tenderness Musculoskeletal: No tenderness Integumentary: No rashes Neurological: Normal speech, Normal tone, Normal affect Lymphatics: No axilla or inguinal lymphadenopathy Other Physical/Emotional Findings: Pleasant and cooperative - Studies Microbiology Data (last 24 hrs): 02/11/20 12:02 Throat Culture & Sensitivity - Final NORMAL UPPER RESPIRATORY EDMOND GROWN. 02/11/20 11:29 Clean Catch Urine [place] Count - Final 02/11/20 11:29 Clean Catch Urine - Final No growth. Medications List Reviewed: Yes <JenniferisrealHugo - Last Filed: 02/14/20 08:09> Assessment & Plan Discharge Plan: Home Plan to discharge in: Greater than 2 days - Code Status/Comfort Care Code Status Assessed: Yes (Patient is full code) Physician Review Additional Text: Impression: Acute kidney failure complicated by a history of lupus, chronic anemia and possi ble nephritis: History of lupus: Severe Anemia of chronic disease: Congestive heart failure status post pericardial window in 2007: Plan: Acute kidney failure complicated by a history of lupus, chronic anemia and possible nephritis: Patient kidney function has not improved with hydration, nephrology is recommending dialysis, General Surgery consulted for placement of Tessio, today's patient's hemoglobin is 4.4, patient with antibodies which is delaying transfusion. Will discuss with General Surgery, Tessio insertion may need to be delayed. History of lupus: The patient was diagnosed with lupus in 2007. She was seeing a size maker in [facility] but moved to [facility] and has not seen a size maker in many years. Patient will likely benefit following up with the size maker on discharge. Severe Anemia of chronic disease: Patient given two units yesterday, HGB up to 5. Unable to transfuse yesterday as patient as many antibodies, will attempt to transfuse today. Congestive heart failure status post pericardial window in 2007: Patient states that she was told she had congestive heart failure in 2007 when she was diagnosed with lupus. States that at that time she was noted to have a pericardial effusion and underwent pericardial window which resolve her issue. On admission it is noted that her BNP is elevated at 8398. Awaiting results from echocardiogram, Will consider cardiology consultation based on findings of echocardiogram. Will place patient on telemetry and monitor. Will give Lasix with blood transfusion. Time Spent Managing Pts Care (In Minutes): 55 <Hugo Asencio - Last Filed: 02/14/20 08:09> Physician Review Additional Text: Patient was seen and examined and findings were discussed agree with the assessment and plan as documented by CECI <Michele Saucedo - Last Filed: 02/14/20 13:50>
[2020-02-14] MEDS: FERROUS SULFATE 325 MG TAB PO SCH ×4 (09:00→21:00)
[2020-02-14] MEDS ORDERED: propofoL 200 MG/20 ML VIAL IV ONE (09:07)
[2020-02-14] MEDS ORDERED: LIDOCAINE 2% MPF 5 ML VIAL ONE (09:07)
[2020-02-14] MEDS ORDERED: FENTANYL CITR 100 MCG/2 ML ONE (09:07)
[2020-02-14] MEDS ORDERED: MIDAZOLAM HCL 2 MG/2 ML INJ ONE (09:07)
[2020-02-14] MEDS: LIDOCAINE 1% MPF 30 ML VIAL ONE ×2 (09:15→10:49)
[2020-02-14] MEDS: HEPARIN 5000 UNIT/ML 1 ML VIAL ONE ×4 (09:16→11:10)
[2020-02-14] MEDS ORDERED: NA CHLORIDE 0.9% 250 ML ONE (09:25)
[2020-02-14] MEDS ORDERED: NA CHLORIDE 0.9% 100 ML IV ONE (09:46)
[2020-02-14] MEDS: CALCITROL 0.25 MCG CAP PO SCH (10:00)
[2020-02-14] MEDS ORDERED: NA CHLORIDE 0.9% 500 ML ONE (10:24)
[2020-02-14] MEDS ORDERED: CEFAZOLIN/SWI 1gm 1 GM/10 ML SYR ONE (10:24)
[2020-02-14] MEDS ORDERED: LIDOCAINE 1% MPF 30 ML VIAL ONE (10:29)
--- NOTE | 2020-02-14 10:49 | PREOPCON ---
Date of Consultation: 02/13/2020 Reason: The patient needs dialysis. History Of Present Illness: The patient is a 24-year-old female, who came in with significant anemia with hemoglobin around 3, complaining of shortness of breath, sore throat, low-grade fever, which st arted about a month ago and has progressed. She has lupus. She has been on steroid therapy and on h er workup she was found to have significant uremia and requiring dialysis soon. So, I was consulted for catheter placement. She is awake, alert. No complaints. No fever or chills currently. Review of Systems: Otherwise unremarkable. Past Medical History: Significant for lupus, congestive heart failure, status post pericardial windo w in 2007, acute renal failure and anemia. Past Surgical History: Right kidney biopsy, pericardial window. Allergies: PENICILLIN. Social History: The patient does not smoke or drink. Family History: Noncontributory. Physical Examination: Vital Signs: Stable, afebrile. General: Awake, alert and oriented x3. Head and Neck: No masses. Chest: Clear. Heart: S1 and S2. Abdomen: Soft. Extremities: Neurovascularly intact. Neuro: Nonfocal. Laboratory Data: Reviewed. Her white count is 5.3 today. H and H is 4.4 and 11.5. She is currentl y receiving blood. Her retic count is 10.18. Platelets are 118. INR is within normal limits. BUN is 77, creatinine is 8.61. Assessment: Acute renal failure. The patient with complicated medical history including lupus and s ignificant anemia. Recommendations: We will place a Tesio catheter. The patient understands the risks, benefits, and a lternatives and agrees to procedure. /MODL Voice ID: [id number] Report ID: [id number]
--- NOTE | 2020-02-14 11:12 | P.OP ---
Preoperative diagnosis: ARF Postoperative diagnosis: ARF Primary procedure: RIJ Tesio Secondary procedure: Fluoroscopy Anesthesia: General Estimated blood loss: min Specimen: none Findings: normal anatomy Complications: None Transferred to: Recovery Room Condition: Good
[2020-02-14] MEDS ORDERED: ONDANSETRON 4 MG/2 ML VIAL ONE (11:18)
--- NOTE | 2020-02-14 11:31 | RAD REPORT ---
EXAM DESCRIPTION: RAD - Fluoroscopy <1 Hour - 02/14/2020 11:24 am CLINICAL HISTORY: Venous catheter insertion. TESSIO CATH PLACEMENT COMPARISON: No comparisons FINDINGS: Fluoroscopic imaging is submitted from placement of a venous catheter. Details of the pro cedure not available. Fluoroscopy time: 0.1 minutes
--- NOTE | 2020-02-14 11:46 | PN ---
Date of Progress Note: 02/14/2020 Subjective: The patient was admitted with uremic symptoms, elevated BUN and creatinine. The patient was started on prednisone. The patient was severely anemic, received transfusion. After the predni sone started, the pancytopenia started improving. Physical Examination: Vital Signs: When I saw the patient, blood pressure 134/82, pulse of 96, afebrile. The patient had good urine output of 1100. Chest: Clear to auscultation. Heart: S1, S2. Regular. No pericardial rub. Abdomen: Soft, nontender. No organomegaly. Extremities: No edema. Neurologic: Alert. No tremor. Laboratory Data: WBC 5.3, H and H 4.4/11.5, platelets 118. Sodium 141, potassium 3.9, bicarb 22, BU N 77, creatinine 8.6, GFR of 7, calcium 7.1, phos 5.2. Iron saturation 45, ferritin 711, PTH 640. S kermit protein electrophoresis is still pending. P/C ratio is 3.5. Serology still pending. COVID was negative. LDH 276. Assessment And Plan: 1.Chronic kidney disease. Its look to me with the finding on the PTH and ultrasound that in support of chronic kidney disease, advanced, progression to end-stage renal disease. The patient will need to initiate dialysis. The patient planned for PermCath today, then after that she is going to be sta rted dialysis. We informed the social science teacher that the patient needs placement as outpatient for dial ysis. We will dialyze the patient today and tomorrow. Then, hopefully we can switch her to TTS. 2.We will follow up the serology marker to evaluate if the patient down in the road will benefit fro m kidney biopsy or not if there is any activity. 3.Lupus/lupus nephritis. I do not see any activity on the urine as bland urine, but the patient has proteinuria with nephrotic range of proteinuria. The patient will benefit from staging of the kidne y and the patient is going to need for further workup. We sent all the serology to evaluate the acti vity of the lupus. If it is involving other organ, for the time being I am going to go ahead and sta rt the patient on Plaquenil 200 daily and continue the prednisone. 4.We will follow up haptoglobin. LDH has been elevated, which is in favor of hemolysis, which can e xplain other activity of her lupus. 5.Pancytopenia as above. The patient has a possibility of hemolysis secondary to lupus activity. T he patient already started on prednisone. The patient is status post transfusion. We will start the patient on Plaquenil and we will follow up serology. 6.Anemia, multifactorial, chronic kidney disease and hemolysis. Started on prednisone and Retacrit. 7.Acidosis, recovered. Going to be corrected completely with dialysis. I am going to go ahead and discontinue bicarb drip and continue oral bicarb which will be discontinued when we start the patient on dialysis. 8.Secondary hyperparathyroidism. We will start the patient on calcitriol. We will follow up. I do not see the need for any binder for the time being. 9.Hypocalcemia secondary to secondary hyperparathyroidism. Corrected calcium is 8. I do not see th e need for calcium supplements. SEBAS Voice ID: [id number] Report ID: [id number]
[2020-02-14] MEDS ORDERED: FUROSEMIDE 20 MG/ 2ML VIAL IV ONE ×2 (11:49→22:00)
--- NOTE | 2020-02-14 11:50 | OP ---
Date of Procedure: 02/14/2020 Surgeon: Ritesh hWittington MD Preoperative Diagnosis: Acute renal failure. Postoperative Diagnosis: Acute renal failure. Procedure: Placement of right IJ Tesio catheter, interpretation of intraoperative fluoroscopy. Estimated Blood Loss: Minimal. Specimen: None. Findings: Normal anatomy. Anesthesia: General. Complications: None. Disposition: The patient tolerated procedure in stable condition, taken to Recovery in good general condition. Description Of Procedure: The patient was brought to the OR and placed in supine position. General anesthesia was begun. Patient was prepped and draped in usual sterile fashion. Lidocaine 1% was inf iltrated locally. Then, an 18-gauge needle was used to access the right IJ vein. Guidewire was pass ed. Position was confirmed with fluoroscopy. Counterincision was made and tunneling device was used to tunnel the catheter between the 2 wounds. Then Seldinger technique was used. Vein was dilated. Tip of the catheter was placed in the SVC under fluoroscopy. Then catheter was flushed with heparin and packed with heparin with good blood flow. 3-0 chromic was used to approximate the subcutaneous tissue and 3-0 nylon used to secure the tube to this skin. Then sterile dressing was applied. Gui nt was awakened and taken to Recovery in good general condition and a chest x-ray has been ordered. /MODL Voice ID: [id number] Report ID: [id number]
--- NOTE | 2020-02-14 12:13 | RAD REPORT ---
EXAM DESCRIPTION: RAD - Chest Single View - 02/14/2020 12:02 pm CLINICAL HISTORY: S/P Tesio Chest pain. COMPARISON: Chest Single View dated 02/11/2020 FINDINGS: Portable technique limits examination quality. Right-sided venous catheter has tip in the SVC. No postprocedure pneumothorax. Mild interstitial pulm onary edema with small pleural effusions. The heart is moderately enlarged. IMPRESSION: No postprocedure pneumothorax.
[2020-02-14] MEDS: predniSONE 10 MG TAB PO SCH (14:38)
[2020-02-14] MEDS: VENLAFAXINE HCL 75 MG TABLET PO SCH (14:38)
[2020-02-14] MEDS: NS 0.9% VIAL 10 ML ONE ×2 (14:39→14:40)
[2020-02-14] MEDS: HYDROXYCHLOROQUINE 200MG TAB PO SCH (14:42)
[2020-02-14] MEDS: SODIUM BICARB 325 MG TAB PO SCH ×3 (14:43→21:00)
[2020-02-14 15:43] LABS: Rheumatoid Factor NEG (NEG)
[2020-02-14] MEDS: ONDANSETRON 4 MG/2 ML VIAL IV PRN (18:30)
[2020-02-14] MEDS: EPOETIN 4,000 UNIT/ML VIAL SQ SCH (20:38)
[2020-02-14] MEDS ORDERED: EPOETIN 4,000 UNIT/ML VIAL SQ SCH (21:00)
[2020-02-15] MEDS: ONDANSETRON 4 MG/2 ML VIAL IV PRN (00:25)
[2020-02-15] MEDS: ACETAMINOPHEN 500 MG TAB PO PRN ×2 (00:25→08:59)
[2020-02-15 06:08] LABS: Absolute Lymphocytes (CBC) 1.1 K/uL (0.7-4.9); Albumin 2.5 g/dL (3.4-5.0); Basophils % 0.3 % (0-1.3); Bilirubin Total 1.2 mg/dL (0.2-1.0); Lymphocytes % 18.6 % (15.3-44.8); MPV 8.3 fL (7.6-11.3); Phosphorus 5.1 mg/dL (2.5-4.9); Potassium 3.7 mmol/L (3.5-5.1); Protein, Total 7.3 g/dL (6.4-8.2); RBC Red Blood Cell Count 2.43 M/uL (3.86-4.86)
[2020-02-15] MEDS: HYDROXYCHLOROQUINE 200MG TAB PO SCH (08:59)
[2020-02-15] MEDS: FERROUS SULFATE 325 MG TAB PO SCH ×3 (08:59→20:38)
[2020-02-15] MEDS: VENLAFAXINE HCL 75 MG TABLET PO SCH (08:59)
[2020-02-15] MEDS: SODIUM BICARB 325 MG TAB PO SCH (08:59)
[2020-02-15] MEDS: predniSONE 10 MG TAB PO SCH (08:59)
[2020-02-15] MEDS ORDERED: SODIUM CHLORIDE 0.9% 10ML INJ IV PRN (09:15)
[2020-02-15] MEDS ORDERED: ONDANSETRON 4 MG/2 ML VIAL IV PRN (09:56)
[2020-02-15] MEDS ORDERED: PROMETHAZINE INJ 25 MG/ML AMP IV PRN (09:57)
[2020-02-15] MEDS: PANTOPRAZOLE 40 MG INJ IVP SCH (09:59)
--- NOTE | 2020-02-15 10:33 | P.PN ---
Subjective Date of Service: 02/15/20 Primary Care Provider: [facility] Chief Complaint: Acute renal failure/lupus/anemia Subjective: Improving <Hugo Asencio - Last Filed: 02/15/20 10:31> Date of Service: 02/15/20 <LewisMicheleaskar - Last Filed: 02/15/20 12:27> Review of Systems Unremarkable <Hugo Asencio - Last Filed: 02/15/20 10:31> Physical Examination - Vital Signs Temperature: 97.6 F Blood Pressure: 160/85 Pulse: 73 Respirations: 18 Pulse Ox (%): 97 - Physical Exam General: Alert, In no apparent distress HEENT: Atraumatic, PERRLA, EOMI Neck: Supple, JVD not distended Respiratory: Clear to auscultation bilaterally, Normal air movement Cardiovascular: Regular rate/rhythm, Normal S1 S2 Gastrointestinal: Normal bowel sounds, No tenderness Musculoskeletal: No tenderness Integumentary: No rashes Neurological: Normal speech, Normal tone, Normal affect Lymphatics: No axilla or inguinal lymphadenopathy Other Physical/Emotional Findings: Pleasant and cooperative - Studies Medications List Reviewed: Yes <Hugo Asencio - Last Filed: 02/15/20 10:31> Assessment & Plan Discharge Plan: Home Plan to discharge in: Greater than 2 days - Code Status/Comfort Care Code Status Assessed: Yes Physician Review Additional Text: Impression: Acute kidney failure complicated by a history of lupus, chronic anemia and possible nephritis: History of lupus: Severe Anemia of chronic disease: Congestive heart failure status post pericardial window in 2007: Plan: Acute kidney failure complicated by a history of lupus, chronic anemia and possible nephritis: Tessio was inserted yesterday, patient completed dialysis yesterday. No complications. Hemoglobin has improved significantly. Patient now waiting outpatient dialysis chair placement. This will likely not be placed until Tuesday. Will continue to monitor closely. History of lupus: The patient was diagnosed with lupus in 2007. She was seeing a medical equipment sales in [facility] but moved to [facility] and has not seen a medical equipment sales in many years. Patient will likely benefit following up with the medical equipment sales on discharge. Severe Anemia of chronic disease: Hemoglobin up to 9, significant improvement. Will continue to closely monitor. Patient reports that she had a dark stool yesterday, occult blood test ordered, await results. Congestive heart failure status post pericardial window in 2007: Patient states that she was told she had congestive heart failure in 2007 when she was diagnosed with lupus. States that at that time she was noted to have a pericardial effusion and underwent pericardial window which resolve her issue. On admission it is noted that her BNP is elevated at 8398. Awaiting results from echocardiogram, Will consider cardiology consultation based on findings of echocardiogram. Will place patient on telemetry and monitor. Will give Lasix with blood transfusion. Critical Care: No Time Spent Managing Pts Care (In Minutes): 55 <Hugo Asencio - Last Filed: 02/15/20 10:31> Physician Review Additional Text: Patient was seen and examined and findings were discussed Hemoglobin improved Started on dialysis Appreciate help from the consultants Agree with the assessment and plan as documented by the CECI <Michele Saucedo - Last Filed: 02/15/20 12:27>
--- NOTE | 2020-02-15 10:38 | P.PN ---
Subjective Date of Service: 02/15/20 Primary Care Provider: [facility] Chief Complaint: Acute renal failure/lupus/anemia Subjective Pt with Hx of SLE, pericardial effusion in 2007 S/P window, CKD had biopsy at age ~11 , was on cellcept and hydroxychloroquine pt had no blood w/u or Rhumatology and nephrology F/U for more than 6yrs presented with symptomatic anemia Cr ~9.0 , HB <4.0 Today Pt have nausea and vomiting , started on antiemetic HD today and tomorrow will cont prednisione Op dialysis arrangement pending Complements and Anti-DS results Physical exam general: AAOX3, NAD , obese Neck; Supple, No elevated JVD hear: RRR, normal S1,2 no murmur or rub Chest: CTAB, no rlaes or wheezes Abdomen: Soft , Nt Extremities No edema or ulcer 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 US with echogenic kidneys renal dose meds started on HD Symptomatic anemia likely due to CKD and lupus transfuse to keep Hb >7.0 cont epogen F/U on inflammatory markers LDH mildly elevated High retic count , f/u haptoglobulin SLE hold cellcept due to anemia cont plaquinel F/U markers cont prednsione if inflammatory markers HAGMA will correct with HD total time spent 45 min Physical Examination - Vital Signs Temperature: 97.6 F Blood Pressure: 160/85 Pulse: 73 Respirations: 18 Pulse Ox (%): 97 - Physical Exam Other Physical/Emotional Findings: Pleasant and cooperative - Studies Medications List Reviewed: Yes
[2020-02-15] MEDS: EPOETIN 4,000 UNIT/ML VIAL SQ SCH (12:01)
[2020-02-15] MEDS: HYDRALAZINE HCL 20 MG/ML VIAL IV PRN (12:14)
[2020-02-15] MEDS ORDERED: LORazepam 2 MG/ML VIAL IV ONE (18:00)
[2020-02-16 06:00] LABS: Albumin 2.4 g/dL (3.4-5.0); Bilirubin Total 1.7 mg/dL (0.2-1.0); Phosphorus 4.1 mg/dL (2.5-4.9); Potassium 3.8 mmol/L (3.5-5.1); Protein, Total 6.9 g/dL (6.4-8.2)
[2020-02-16 06:09] LABS: Basophils % 0.4 % (0-1.3); Hematocrit 28.2 % (36.0-45.0); Lymphocytes % 18.4 % (15.3-44.8); MPV 8.4 fL (7.6-11.3); RBC Red Blood Cell Count 2.68 M/uL (3.86-4.86)
--- NOTE | 2020-02-16 08:52 | P.PN ---
Subjective Date of Service: 02/16/20 Primary Care Provider: [facility] Chief Complaint: Acute renal failure/lupus/anemia Subjective: No new changes, Improving <Hugo Asencio - Last Filed: 02/16/20 08:52> Date of Service: 02/16/20 <LewisMicheleaskar - Last Filed: 02/16/20 12:58> Review of Systems Unremarkable <Hugo Asencio - Last Filed: 02/16/20 08:52> Physical Examination - Vital Signs Temperature: 98.9 F Blood Pressure: 149/83 Pulse: 76 Respirations: 18 Pulse Ox (%): 96 - Physical Exam General: Alert, In no apparent distress, Oriented x3 HEENT: Atraumatic, Normocephalic, Mucous membr. moist/pink Neck: Supple Respiratory: Clear to auscultation bilaterally, Normal air movement Cardiovascular: Normal pulses, Regular rate/rhythm, Normal S1 S2 Capillary refill: <2 Seconds Gastrointestinal: Normal bowel sounds, Soft and benign Musculoskeletal: No contractures, No erythema, No tenderness Integumentary: No significant lesion, No tenderness/swelling, No erythema Neurological: Normal gait, Normal speech, Normal strength at 5/5 x4 extr, Normal tone Urinary: Dialysis catheter Other Physical/Emotional Findings: Pleasant and cooperative - Studies Medications List Reviewed: Yes <Hugo Asencio - Last Filed: 02/16/20 08:52> Assessment & Plan Discharge Plan: Home Plan to discharge in: Greater than 2 days - Code Status/Comfort Care Code Status Assessed: Yes Physician Review Additional Text: Impression: Acute kidney failure complicated by a history of lupus, chronic anemia and possible nephritis: History of lupus: Severe Anemia of chronic disease: Congestive heart failure status post pericardial window in 2007: Plan: Acute kidney failure complicated by a history of lupus, chronic anemia and possible nephritis: Patient had dialysis the last 2 days. Patient being followed closely by nephrology, current arrangements are for patient to receive outpatient hemodialysis. This will likely not take place until Tuesday. History of lupus: The patient was diagnosed with lupus in 2007. She was seeing a manufacturing chief engineer in [facility] but moved to [facility]Note [facility]] and has not seen a manufacturing chief engineer in many years. Patient will likely benefit following up with the manufacturing chief engineer on discharge. Severe Anemia of chronic disease: Hemoglobin up to 9, significant improvement. Will continue to closely monitor. Patient reports that she had a dark stool yesterday, occult blood test ordered, await results. History of Congestive heart failure status post pericardial window in 2007: Current echocardiogram shows ejection fraction of 66%. Recommend follow up with Cardiology on outpatient basis for Critical Care: No Time Spent Managing Pts Care (In Minutes): 55 <Hugo Asencio - Last Filed: 02/16/20 08:52> Physician Review Additional Text: Agree with the assessment and Plan as documented by CECI <Michele Saucedo - Last Filed: 02/16/20 12:58>
[2020-02-16] MEDS ORDERED: POTASSIUM 25 MEQ EFFERV TAB PO ONE (09:00)
[2020-02-16] MEDS: VENLAFAXINE HCL 75 MG TABLET PO SCH (09:00)
[2020-02-16 09:02] LABS: Anisocytosis 1+; Basophilic Stippling 1+; Blood Morphology Comment NOTED (NOT SEEN); Macrocytosis 1+; Platelet Estimate DECR; Urine White Blood Cell Casts OK
[2020-02-16] MEDS: FERROUS SULFATE 325 MG TAB PO SCH ×3 (09:32→21:36)
[2020-02-16] MEDS: predniSONE 10 MG TAB PO SCH (09:32)
[2020-02-16] MEDS: HYDROXYCHLOROQUINE 200MG TAB PO SCH (09:32)
[2020-02-16] MEDS: CALCITROL 0.25 MCG CAP PO SCH (09:32)
[2020-02-16] MEDS: ACETAMINOPHEN 500 MG TAB PO PRN ×2 (09:33→21:34)
[2020-02-16] MEDS: PANTOPRAZOLE 40 MG INJ IVP SCH (09:33)
--- NOTE | 2020-02-16 10:39 | P.PN ---
Subjective Date of Service: 02/17/20 Primary Care Provider: [facility] Chief Complaint: Acute renal failure/lupus/anemia Subjective Pt with Hx of SLE, pericardial effusion in 2007 S/P window, CKD had biopsy at age ~11 , was on cellcept and hydroxychloroquine pt had no blood w/u or Rhumatology and nephrology F/U for more than 6yrs presented with symptomatic anemia Cr ~9.0 , HB <4.0 Today nausea and vomiting resolved HD Tuesday will increase prednisione Op dialysis arrangement pending Complements and Anti-DS results Physical exam general: AAOX3, NAD , obese Neck; Supple, No elevated JVD hear: RRR, normal S1,2 no murmur or rub Chest: CTAB, no rlaes or wheezes Abdomen: Soft , Nt Extremities No edema or ulcer 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
[2020-02-16] MEDS: EPOETIN 4,000 UNIT/ML VIAL SQ SCH (21:36)
[2020-02-17] MEDS: ACETAMINOPHEN 500 MG TAB PO PRN (02:24)
[2020-02-17] MEDS ORDERED: DIPHENHYDRAMINE 50 MG/ML VIAL IV ONE (04:54)
[2020-02-17] MEDS ORDERED: DIPHENHYDRAMINE 50 MG/ML VIAL ONE (05:08)
[2020-02-17 06:12] LABS: Albumin 2.6 g/dL (3.4-5.0); Phosphorus 4.7 mg/dL (2.5-4.9); Potassium 3.7 mmol/L (3.5-5.1)
[2020-02-17 07:59] LABS: Magnesium 2.1 mg/dL (1.8-2.4)
[2020-02-17 08:19] LABS: Absolute Lymphocytes (CBC) 1.2 K/uL (0.7-4.9); Basophils % 1.2 % (0-1.3); Hematocrit 29.2 % (36.0-45.0); Lymphocytes % 14.5 % (15.3-44.8); MPV 8.9 fL (7.6-11.3); RBC Red Blood Cell Count 2.77 M/uL (3.86-4.86)
--- NOTE | 2020-02-17 08:42 | P.PN ---
Subjective Date of Service: 02/17/20 Primary Care Provider: [facility] Chief Complaint: Acute renal failure/lupus/anemia Subjective: C/O voiced (Patient with lower lip swelling, appears to be angioedema.) <Luis MHugo - Last Filed: 02/17/20 08:42> Date of Service: 02/17/20 <LewisMichele Hua - Last Filed: 02/17/20 11:15> Review of Systems 10-point ROS is otherwise unremarkable ENT: Other (Lower lip swelling) <Hugo Asencio - Last Filed: 02/17/20 08:42> Physical Examination - Vital Signs Temperature: 98.9 F Blood Pressure: 149/83 Pulse: 76 Respirations: 18 Pulse Ox (%): 96 - Physical Exam General: Alert, In no apparent distress, Oriented x3 HEENT: Atraumatic, Normocephalic, Other (Swelling of the lower lip present) Neck: Supple, JVD not distended Respiratory: Clear to auscultation bilaterally, Normal air movement Cardiovascular: Regular rate/rhythm, Normal S1 S2 Gastrointestinal: Normal bowel sounds, No tenderness Musculoskeletal: No tenderness Integumentary: No rashes Neurological: Normal speech, Normal tone, Normal affect Other Physical/Emotional Findings: Pleasant and cooperative - Studies Medications List Reviewed: Yes <Hugo Asencio - Last Filed: 02/17/20 08:42> Assessment & Plan Discharge Plan: Home Plan to discharge in: Greater than 2 days - Code Status/Comfort Care Code Status Assessed: Yes (Patient is full code) Physician Review Additional Text: Impression: End-stage renal disease on 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 Patient awaiting outpatient dialysis chair. Further workup still taking place. Patient complained of lower lip swelling that began last night after the injection of medication. Will review medication and hold. Will discuss further with nephrology. History of lupus: Patient need to follow up with rheumatology on outpatient basis after discharge. Severe Anemia of chronic disease-resolved: Hemoglobin up to 9, significant improvement. Will continue to closely monitor. Patient reports that she had a dark stool 2 days ago, occult blood test ordered, await results. Platelet count is down to 94 today, will discuss this with nephrology as well. History of Congestive heart failure status post pericardial window in 2008: Current echocardiogram shows ejection fraction of 66%. Recommend follow up with Cardiology on outpatient basis for Critical Care: No Time Spent Managing Pts Care (In Minutes): 55 <Hugo Asencio - Last Filed: 02/17/20 08:42> Physician Review Additional Text: Patient seen and examined and findings were discussed Has swelling on the lower lids Benadryl was given Will add on a short course of steroid Monitor closely Agree with the assessment and plan as documented by the CECI <Michele Saucedo - Last Filed: 02/17/20 11:15>
[2020-02-17] MEDS: VENLAFAXINE HCL 75 MG TABLET PO SCH (09:00)
[2020-02-17] MEDS: HYDROXYCHLOROQUINE 200MG TAB PO SCH (09:30)
[2020-02-17] MEDS: FERROUS SULFATE 325 MG TAB PO SCH ×3 (09:30→20:37)
[2020-02-17] MEDS: CALCITROL 0.25 MCG CAP PO SCH (09:30)
[2020-02-17] MEDS: predniSONE 10 MG TAB PO SCH (09:31)
[2020-02-17] MEDS: PANTOPRAZOLE 40 MG INJ IVP SCH (09:31)
[2020-02-17] MEDS ORDERED: LORATADINE 10 MG TAB PO PRN (11:16)
--- NOTE | 2020-02-17 14:11 | P.PN ---
Subjective Date of Service: 02/17/20 Primary Care Provider: [facility] Chief Complaint: Acute renal failure/lupus/anemia Subjective Pt with Hx of SLE, pericardial effusion in 2007 S/P window, CKD had biopsy at age ~11 , was on cellcept and hydroxychloroquine pt had no blood w/u or Rhumatology and nephrology F/U for more than 6yrs presented with symptomatic anemia Cr ~9.0 , HB <4.0 Today asymptomatic Low C3 and C4, will cont on steroids HD Tuesday Op dialysis arrangement pending Anti-DS results Physical exam general: AAOX3, NAD , obese Neck; Supple, No elevated JVD hear: RRR, normal S1,2 no murmur or rub Chest: CTAB, no rlaes or wheezes Abdomen: Soft , Nt Extremities No edema or ulcer 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
[2020-02-17] MEDS: HYDRALAZINE HCL 20 MG/ML VIAL IV PRN (16:59)
[2020-02-18] MEDS: ACETAMINOPHEN 500 MG TAB PO PRN ×2 (06:03→20:08)
[2020-02-18 06:19] LABS: Absolute Lymphocytes (CBC) 1.2 K/uL (0.7-4.9); Basophils % 0.3 % (0-1.3); Hematocrit 33.1 % (36.0-45.0); Lymphocytes % 20.1 % (15.3-44.8); MPV 8.3 fL (7.6-11.3); RBC Red Blood Cell Count 3.12 M/uL (3.86-4.86)
[2020-02-18 06:32] LABS: Albumin 2.8 g/dL (3.4-5.0); Potassium 3.8 mmol/L (3.5-5.1)
[2020-02-18] MEDS: VENLAFAXINE HCL 75 MG TABLET PO SCH (09:00)
--- NOTE | 2020-02-18 09:24 | RAD REPORT ---
EXAM DESCRIPTION: CT - Head Brain Wo Cont - 02/18/2020 6:15 am ADDENDUM #1 Findings communicated to Neliad Duke RN, by radiology client support representative at 0624 hours on 02/18/2020. Electronically signed by: Yamileth Fong DO 02/18/2020 6:28 AM CDT End of Addendum CT HEAD WITHOUT CONTRAST CLINICAL HISTORY: Confusion COMPARISON: None. TECHNIQUE: Axial unenhanced CT imaging of the brain. Reformatted coronal and sagittal images obtaine d. This examination was performed according to our departmental dose optimization program, which include s automated exposure control, adjustment of the mA and/or kV according to patient size and/or use of iterative reconstruction technique. FINDINGS: There is a faint area of relative subcortical white matter hypodensity within the right pa rietal lobe. There is no hemorrhage, mass, or midline shift. There is normal ventricle size and conto ur. Extra-axial fluid spaces appear normal. Normal cerebellum and vermis. Prepontine cisterns are not effaced. Normal sella contents. Intraorbital contents appear normal. There is mucosal thickening in the right ethmoid air cells. Mast oid air cells are clear bilaterally. Skull base and calvarium are intact. Unremarkable scalp soft tis sues. IMPRESSION: 1. Small focus of subcortical hypodensity in the right parietal lobe is nonspecific. Thi s could be sequela of remote chronic microvascular change, cerebritis, or small acute subacute infarc t. No discrete mass. 2. Ethmoid sinus mucosal disease. Electronically signed by: Yamileth Fong DO 02/18/2020 6:06 AM CDT Due to temporary technical issues with the PACS/Fluency reporting system, reports are being signed by the in house radiologist without review as a courtesy to ensure prompt reporting. The interpreting r adiologist is fully responsible for the content of the report.
--- NOTE | 2020-02-18 09:36 | P.PN ---
Subjective Date of Service: 02/18/20 Primary Care Provider: [facility] Chief Complaint: Acute renal failure/lupus/anemia Subjective: New changes <Hugo Asencio - Last Filed: 02/18/20 09:28> Date of Service: 02/18/20 <Michele Saucedo - Last Filed: 02/18/20 15:21> Review of Systems 10-point ROS is otherwise unremarkable Neurological: Other (Headache) <Hugo Asencio - Last Filed: 02/18/20 09:28> Physical Examination - Vital Signs Temperature: 97.5 F Blood Pressure: 130/84 Pulse: 84 Respirations: 18 Pulse Ox (%): 100 - Physical Exam General: Alert, In no apparent distress, Oriented x3 HEENT: Atraumatic, Normocephalic, PERRLA, Other (Angioedema lower lip with some blistering.) Neck: Supple Respiratory: Clear to auscultation bilaterally Cardiovascular: Regular rate/rhythm, Normal S1 S2 Capillary refill: <2 Seconds Gastrointestinal: Normal bowel sounds, Soft and benign Musculoskeletal: No contractures, No erythema Integumentary: No tenderness/swelling, No erythema Neurological: Normal speech, Normal strength at 5/5 x4 extr, Normal tone Other Physical/Emotional Findings: Pleasant and cooperative - Studies Medications List Reviewed: Yes <Hugo Asencio - Last Filed: 02/18/20 09:28> Assessment & Plan Discharge Plan: Home Plan to discharge in: 24 Hours - Code Status/Comfort Care Code Status Assessed: Yes (Patient is full code) Physician Review Additional Text: Impression: End-stage renal disease on 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 Patient awaiting outpatient dialysis chair. Further workup still taking place. Patient complained of lower lip swelling that began on the morning of the after the injection of medication. Will review medication and discuss further with nephrology. Transient episode of altered mental status with fall, of abnormal head CT: Was notified that this morning patient was found on the floor by laboratory staff. At that time patient was confused, disoriented. Patient was brought down for a stat CT head. CT revealed small focus of subcortical hypodensity in the right parietal lobe that is nonspecific. Will order MRI without contrast and consult Neurology. Patient is currently back at baseline states she is feeling well. Patient believes that she was having a bad dream and jumped out of bed having a panic attack. I believe that this is the most likely cause. History of lupus: Patient need to follow up with rheumatology on outpatient basis after discharge. Severe Anemia of chronic disease-resolved: Hemoglobin up to 11, significant improvement. Will continue to closely monitor. Patient reports that she had a dark stool 2 days ago, occult blood test ordered, await results. Platelet count is 96 today which is stable, will discuss this with nephrology as well. History of Congestive heart failure status post pericardial window in 2007: Current echocardiogram shows ejection fraction of 66%. Recommend follow up with Cardiology on outpatient basis for further evaluation. Critical Care: No Time Spent Managing Pts Care (In Minutes): 55 <Hugo Asencio - Last Filed: 02/18/20 09:28> Physician Review Additional Text: Patient was seen and examined and findings were discussed Agree with the assessment and plan as documented by the CECI <Michele Saucedo - Last Filed: 02/18/20 15:21>
[2020-02-18] MEDS: PANTOPRAZOLE 40 MG INJ IVP SCH (10:29)
[2020-02-18] MEDS: HYDROXYCHLOROQUINE 200MG TAB PO SCH (10:29)
[2020-02-18] MEDS: predniSONE 10 MG TAB PO SCH (10:29)
[2020-02-18] MEDS: FERROUS SULFATE 325 MG TAB PO SCH ×3 (10:29→20:08)
--- NOTE | 2020-02-18 12:42 | RAD REPORT ---
EXAM DESCRIPTION: MRI - Brain Wo Cont - 02/18/2020 12:07 pm CLINICAL HISTORY: s/p fall Fall, head injury, headache, drowsiness COMPARISON: Head Brain Wo Cont dated 02/18/2020; Renal Ultrasound-Complete dated 02/11/2020 TECHNIQUE: Multi-sequence, multiplanar MR imaging of the brain was performed without contrast. FINDINGS: Areas of abnormal cortical and subcortical T2 and FLAIR signal seen along the posterosuper ior parietal lobes bilaterally, greater on the right. These regions do not demonstrate elevated nonco ntrast T1 signal. No abnormal diffusion-weighted imaging seen in these regions. Recent CT head imagin g shows no evidence of blood products in these locations. No hydrocephalus, acute bleed or midline sh ift. Moderate mucoperiosteal thickening is present in the left maxillary antrum. The paranasal sinuses and mastoids are otherwise clear. No depressed calvarial fracture. IMPRESSION: Nonspecific areas of T2 and FLAIR hyperintensity in the cortical and subcortical regions of the posterosuperior parietal lobes identified, greater on the right. No acute hemorrhage or evide nce of acute CVA seen. These findings may be related to previous infarction or trauma/infection. Advise post-contrast sequences through the brain to evaluate for potential enhancement of these regio ns.
--- NOTE | 2020-02-18 21:45 | CON ---
Reason For Consultation: Consultation called because the patient passed out. History Of Present Illness: Ms. Ruiz is a 24-year-old right-handed patient with hi story of lupus, acute renal failure, and chronic renal failure, now on kidney dialysis and congestive heart failure, who apparently fell out of bed earlier today. The patient said she was not sure what was happening, perhaps she was dreaming, but she thought she swung around and sat on her bed, then t he next memory was being on the floor, having bitten her tongue, and was disoriented. The event was not witnessed. The patient does say in retrospect, she has had episodes of loss of time and staring off, but has not had any tonic or clonic activity. She was never worked up for epilepsy. Her head C T scan revealed no acute ischemic or hemorrhagic changes, and a subsequent brain MRI done earlier tod showed no acute stroke, but nonspecific T2 and FLAIR areas consistent with small vessel ischemic d isease, likely secondary to hypertension and chronic renal failure. She has not received antiepileptic medications and has not had additional episodes while hospitalized . Past Medical History: Significant as indicated for lupus, acute renal failure, congestive heart fail ure, status post pericardial window in 2007, chronic anemia. Past Surgical History: Right kidney biopsy with pericardial window, hemodialysis. Allergies: PENICILLIN. Medications: She is receiving Feosol 325 mg 3 times daily. She did receive Lasix earlier today, Christophe altrol 0.5 mcg every 48 hours, Retacrit 6000 units on Tuesday, , Tuesday. She has Zofran as needed and Phenergan along with heparin for DVT prophylaxis. Family History: Mother with heart disease and kidney disease. Social History: No alcohol, tobacco, or IV drug use. She lives in a single family residence. Review of Systems: She denies any recent fevers or chills, nausea, vomiting, myalgias, arthralgias, headache, weight sybil nge, or rash, any acute issues aside from mentioned. Physical Examination: Vital Signs: Blood pressure 133/86, pulse 79, respiratory rate 18, temperature 97.4, oxygen saturati on 98%. Weight 131 pounds, height 4 feet 11 inches, BMI 26. General: Ms. Ruiz is resting in bed. She is in no acute distress. She is normocephalic, atraumati c. Sclerae anicteric. Oropharynx is moist and pink. Neck: Supple. Chest: Clear. Heart: Regular. Extremities: No edema, cyanosis, or clubbing. Neurological: She is alert and oriented to situation, place, and person. She has no cranial nerve d eficits. She has no focal motor, sensory, coordination or gait deficits. Reflexes are 2+ in upper a nd lower extremities. Laboratory Studies: Complete blood count with differential shows white blood cell count 6.1, hemoglo bin 11.4, platelets are 96. Her creatinine today is 6.58. She had a hemodialysis earlier today, whi ch was after blood draw. Sodium 142, potassium 3.8, chloride 108, albumin 2.4. Parathyroid hormone elevated at 640. Her calcium is normal at 8.9. She has pending vitamin D levels and serum protein e lectrophoresis. Thyroid function studies show T4 of 0.95 and TSH 2.190. Her hepatitis panel is pend ing. She has negative rheumatoid factor. MIKHAIL pending. Complement C3 is low at 38, complement C4 lo w at 5. Anti-proteinase 3 is less than 1. Anti-myeloperoxidase is less than 1. Double-stranded DNA antibodies pending. Glomerular basement membrane HCG is pending. She is negative for COVID-19. Assessment: Ms. Ruiz is a 24-year-old patient with possible seizures and history of seizure-like ac tivity, that is uncharacterized. Brain MRI shows small vessel ischemic disease. She has no focal ne urological deficits. She does have electrolyte derangements and has had hemodialysis earlier today. Plan: 1.Ambulatory video EEG monitoring for event characterization. 2.The patient is asked to maintain an event diary. 3.May consider Keppra at low dose with blood level check given renal failure. 4.The patient will be discharged home and follow up in Dr. Dhaliwal's clinic by calling the office a fter discharge to set up an appointment within 2 weeks. NATASHA/[place] Voice ID: [id number] Report ID: [id number]
--- NOTE | 2020-02-19 01:16 | PN ---
Date of Progress Note: 02/18/2020 Chief Complaint: Severe hyperazotemia. Objective: The patient is -sumx-mhm woman. She has history of SLE, pericardial effusion a nd back in 2007 status post pericardial window, CKD due to lupus. She had biopsy when she was 11-yea r-old and was treated with CellCept and for lupus nephritis. She presented to the [facility] with severe hyperazotemia, low C3 and low C4 were found and the patient will continue steroids for lupus nephritis. The patient agreed to start dialysis due to the fact that renal function has not im proved and the patient appears to be at end-stage renal disease. Review of Systems: Denies PND or orthopnea. Physical Examination: Lungs: Diminished breath sounds at bases. Heart: S1 and S2. Abdomen: Soft, benign. Extremities: Slight edema. Laboratory Data: Hemoglobin 11.4, WBC 6.1, and platelet count is 96,000. Sodium 142, potassium 3.8, chloride 108, CO2 of 24, BUN 55, creatinine 6.58, phosphorus 6.0, and calcium 8.9. Impression And Plan: 1.Severe hyperazotemia. Renal function has not improved. The patient has lupus nephritis. The pat ient will start dialysis. She was scheduled to have dialysis today. Heparin was on hold. The patie nt is undergoing workup for status post fall today. She remains hemodynamically stable. 2.Hypertension. Blood pressure in acceptable control. Continue to monitor blood pressure during di alysis. 3.Lupus nephritis. The patient is on steroids. Workup with serology test is pending. 4.Anemia. Monitor hemoglobin level, adjust AIRAM as needed. EB/MODL Voice ID: [id number] Report ID: [id number]
[2020-02-19 03:39] LABS: HBsAG Nonreactive (Nonreactive)
[2020-02-19 06:18] LABS: Absolute Lymphocytes (CBC) 0.9 K/uL (0.7-4.9); Basophils % 0.2 % (0-1.3); Hematocrit 30.5 % (36.0-45.0); Lymphocytes % 13.3 % (15.3-44.8); MPV 9.3 fL (7.6-11.3); RBC Red Blood Cell Count 2.92 M/uL (3.86-4.86)
[2020-02-19 08:42] LABS: Blood Morphology Comment NOTED (NOT SEEN); Macrocytosis 1+; Platelet Estimate DECR; Polychromasia 1+; Rouleau NOTED; Urine White Blood Cell Casts OK
[2020-02-19 08:44] LABS: Anisocytosis 1+
[2020-02-19] MEDS: HYDROXYCHLOROQUINE 200MG TAB PO SCH (09:19)
[2020-02-19] MEDS: FERROUS SULFATE 325 MG TAB PO SCH ×3 (09:19→20:44)
[2020-02-19] MEDS: predniSONE 10 MG TAB PO SCH (09:19)
[2020-02-19] MEDS: PANTOPRAZOLE 40 MG INJ IVP SCH (09:19)
[2020-02-19] MEDS: VENLAFAXINE HCL 75 MG TABLET PO SCH (09:19)
--- NOTE | 2020-02-19 09:52 | P.PN ---
Subjective Date of Service: 02/19/20 Primary Care Provider: [facility] Chief Complaint: Acute renal failure/lupus/anemia Subjective: No new changes, Doing well <MeghanaFabian - Last Filed: 02/19/20 10:37> Date of Service: 02/20/20 <Michele Saucedo - Last Filed: 02/20/20 16:40> Review of Systems General: Unremarkable Eyes: Unremarkable ENT: Unremarkable Respiratory: Unremarkable Cardiovascular: Unremarkable Gastrointestinal: Unremarkable Musculoskeletal: Unremarkable Integumentary: Unremarkable <Fabian Kowalski - Last Filed: 02/19/20 10:37> Physical Examination - Vital Signs Temperature: 97.5 F Blood Pressure: 158/83 Pulse: 65 Respirations: 16 Pulse Ox (%): 100 - Physical Exam General: Alert, In no apparent distress, Oriented x3, Cooperative HEENT: Atraumatic, Normocephalic, PERRLA Neck: Supple, Other (Trachea midline) Respiratory: Clear to auscultation bilaterally, Normal air movement Cardiovascular: No edema, Normal pulses, Regular rate/rhythm Capillary refill: <2 Seconds Gastrointestinal: Normal bowel sounds, Soft and benign Musculoskeletal: No clubbing, No swelling, No contractures Integumentary: No rashes, No breakdown, No significant lesion Neurological: Normal gait, Normal speech, Normal strength at 5/5 x4 extr, Normal tone Other Physical/Emotional Findings: Pleasant and cooperative - Studies Medications List Reviewed: Yes <Fabian Kowalski - Last Filed: 02/19/20 10:37> Assessment And Plan - Plan Impression: End-stage renal disease now on hemodialysis complicated by a history of lupus, chronic anemia and nephritis: Transient episode of altered mental status with fall, of abnormal head CT: History of lupus: Severe Anemia of chronic disease: Congestive heart failure status post pericardial window in 2008: Plan: Acute kidney failure complicated by a history of lupus, chronic anemia and possible nephritis: Patient noted to have a significantly elevated creatinine level of 9.5 on admission. This is likely secondary to a history of lupus, chronic anemia and nephritis. Patient is tolerating dialysis. Will continue current plan of care. Patient is pending a chair at dialysis center. Once the chair is arranged patient can be discharged. Transient episode of altered mental status with fall, of abnormal head CT: Was notified that this morning patient was found on the floor by laboratory staff. At that time patient was confused, disoriented. Patient was brought down for a stat CT head. CT revealed small focus of subcortical hypodensity in the right parietal lobe that is nonspecific. MRI brain with Nonspecific areas of T2 and FLAIR hyperintensity in the cortical and subcortical regions of the posterosuperior parietal lobes identified, greater on the right. No acute hemorrhage or evidence of acute CVA seen. These findings may be related to previous infarction or trauma/infection. Advise post-contrast sequences through the brain to evaluate for potential enhancement of these regions. Patient is currently back at baseline states she is feeling well. Patient believes that she was having a bad dream and jumped out of bed having a panic attack. I believe that this is the most likely cause. Patient was cleared by Neurology. Recommending follow-up in 's office in 2 weeks after discharge. History of lupus: Patient need to follow up with rheumatology on outpatient basis after discharge. Severe Anemia of chronic disease: Patient noted to have the H&H of 3.3/9.0 on admission. ER started patient on 2 units PRBCs. Hemoglobin and hematocrit of 10.5/30.5 today. Patient denies GI bleeding and there is no indication that the patient is bleeding. Admits to a long history of chronic anemia secondary to her lupus. Denies any continued dark stools. Fecal occult is negative. Platelet count of 84 today similar to 2 days ago. Will continue to monitor. Congestive heart failure status post pericardial window in 2007: Patient states that she was told she had congestive heart failure in 2007 when she was diagno sed with lupus. States that at that time she was noted to have a pericardial effusion and underwent pericardial window which resolve her issue. Echocardiogram with EF of 66%. Patient would likely benefit from a follow-up with Cardiology on an outpatient basis after discharge for further. Discharge Plan: Home Plan to discharge in: 48 Hours - Code Status/Comfort Care Code Status Assessed: Yes Physician Review Additional Text: Patient was seen and examined and findings were discussed Agree with the assessment and plan as documented by the CECI Time Spent Managing PTS Care (In Minutes): 45 <Fabian Kowalski - Last Filed: 02/19/20 10:37>
[2020-02-19] MEDS: HYDRALAZINE HCL 20 MG/ML VIAL IV PRN (16:14)
[2020-02-19] MEDS ORDERED: levETIRAcetam 1,000 MG in NA CHLORIDE 0.9% 100 ML IV ONE (17:00)
[2020-02-19] MEDS ORDERED: levETIRAcetam 500 MG in NA CHLORIDE 0.9% 100 ML IV SCH (17:00)
[2020-02-19 19:44] LABS: HIV AG/AB 4TH GEN Reactive (Non-reactive)
[2020-02-19] MEDS: levETIRAcetam 500 MG in NA CHLORIDE 0.9% 100 ML IV SCH (20:43)
[2020-02-19] MEDS: EPOETIN 4,000 UNIT/ML VIAL SQ SCH (20:50)
[2020-02-19] MEDS: NEPRO SHAKE 237 ML CAN PO SCH (21:00)
[2020-02-19] MEDS ORDERED: CALCITROL 0.25 MCG CAP PO SCH (21:00)
[2020-02-19] MEDS: ACETAMINOPHEN 500 MG TAB PO PRN (23:38)
--- NOTE | 2020-02-20 00:37 | PN ---
Date of Progress Note: 02/19/2020 Subjective: The patient is doing well. The patient was admitted with progression of chronic kidney disease to end-stage renal disease. The patient initiated on dialysis, tolerating the dialysis very well. Physical Examination: Vital Signs: When I saw the patient, blood pressure 170/99, pulse of 76, afebrile. The patient christina lyles had urine output of 400-600. Chest: Clear to auscultation. Heart: S1, S2. Systolic murmur. Abdomen: Soft, nontender. Extremities: No edema. Neurologic: Alert and oriented x3. Nonfocal. Current Medications: The patient on include: 1.Plaquenil. 2.Loratadine. 3.Heparin. 4.Ferrous sulfate. 5.Epogen. 6.Keppra. 7.Effexor. 8.Zofran. 9.Prednisone. Laboratory Data: H and H 10.5/30.5. Sodium 142, potassium 3.8, bicarb 24, BUN 55, creatinine 6.5, c alcium 8.9, phosphorus 6. PTH 640. C3 38, C4 of 5. Rheumatoid factor was negative. HIV was reacti ve. MIKHAIL is still pending. Double-stranded DNA is still pending. COVID was negative. Assessment And Plan: 1.Chronic kidney disease, progression to end-stage renal disease. We will continue the patient on d ialysis. The patient is going to be due for dialysis tomorrow and we will follow up. 2.Hypertension, not controlled, with nephrotic range proteinuria. I am going to start the patient o n ALEXANDRU inhibitor. 3.Lupus nephritis with lupus activity, supported with depleted complement. Agree with prednisone an d Plaquenil. We will follow up. The patient is going to need to start on immunosuppressive therapy. 4.Lupus as above. 5.Secondary hyperparathyroidism. I am going to start the patient on Tums and calcitriol. MA/MODL Voice ID: [id number] Report ID: [id number]
[2020-02-20 05:06] LABS: Absolute Lymphocytes (CBC) 1.6 K/uL (0.7-4.9); Basophils % 0.3 % (0-1.3); Lymphocytes % 19.3 % (15.3-44.8); MPV 9.1 fL (7.6-11.3); RBC Red Blood Cell Count 2.69 M/uL (3.86-4.86)
[2020-02-20] MEDS: levETIRAcetam 500 MG in NA CHLORIDE 0.9% 100 ML IV SCH ×2 (08:23→21:11)
[2020-02-20] MEDS: CALCIUM CARBONATE CHEW 500MG TAB PO SCH ×3 (08:23→16:05)
[2020-02-20] MEDS: FERROUS SULFATE 325 MG TAB PO SCH ×3 (08:24→21:11)
[2020-02-20] MEDS: VENLAFAXINE HCL 75 MG TABLET PO SCH (08:24)
[2020-02-20] MEDS: predniSONE 10 MG TAB PO SCH (08:24)
[2020-02-20] MEDS: PANTOPRAZOLE 40 MG INJ IVP SCH (08:24)
[2020-02-20] MEDS: NEPRO SHAKE 237 ML CAN PO SCH ×2 (08:25→21:00)
[2020-02-20] MEDS: HYDROXYCHLOROQUINE 200MG TAB PO SCH (08:25)
[2020-02-20] MEDS: CALCITROL 0.25 MCG CAP PO SCH (09:50)
[2020-02-20 10:15] VITALS: O2SAT 98
[2020-02-20 11:47] LABS: Vitamin D 1,25-Dihydroxy Total 11 pg/mL (18-72); Vitamin D,1,25-OH2, D2 <8 pg/mL
[2020-02-20] MEDS: HYDRALAZINE HCL 20 MG/ML VIAL IV PRN (12:53)
--- NOTE | 2020-02-20 14:42 | P.DS ---
Admission Date: 02/11/20 Discharge Date: 02/20/20 Primary Care Provider: [facility] (formerly [facility]) Disposition: ROUTINE DISCHARGE Reason for Admission: Acute renal failure/lupus/anemia Procedures: Tessio catheter in place for dialysis Brief History of Present Illness: 24-year-old female with past medical history of lupus, anemia that presents to the emergency room complaining of shortness of breath, sore throat, low-grade fever that started approximately a month ago and has progressively worsened. Patient states that she also has been having an intermittent cough. Patient denies any contact with a known Covid positive person. Patient states that in 2007 she was diagnosed with lupus. At that time she was also told she had congestive heart failure and underwent a pericardial window. She was seeing a disease management nurse in [facility] but moved to [place] several years ago and has not followed up with anyone. States that she has been on prednisone 10 mg daily for the last 10-12 years. She also had a kidney biopsy-date unknown. In the emergency room patient is found to be in acute renal failure and with severe anemia with a creatinine level of 9.55, BUN of 79, an H&H of 3.3/9. Her proBNP is 8398. She is not requiring O2 support at this time. She is afebrile with a temperature reading of 98.6 on arrival to ED. Vitals were also stable with a blood pressure of 117/68, a pulse of 103, respiratory rate of 18 and oxygen saturations of 100% on room air. Her test is negative. Urine is negative. On physical exam patient is calm. She is in no distress. Is not having cough, does not feel febrile and is doing well after some IV fluids and initial treatment in the ED. ED will initiate 2 units of PRBC blood transfusion. Patient will be admitted to hospital and further evaluated. Hospital Course: Patient was admitted for findings of severe anemia with an original H&H of 3.3/9.0 on admission. She is also noted to be in renal failure with a creatinine level of 9.55. Patient underwent blood transfusion and tolerated transfusion of 2 units PRBCs on admission. Nephrology was consulted. Patient was started on iron supplementation. Patient eventually was diagnosed with end- stage renal disease. She had a Tessio catheter placed and has been tolerating dialysis on this admission. She has been approved to continue dialysis as an outpatient on Tuesday and Tuesday. Patient will be dialyzed today prior to discharge. Patient's blood pressure had not been controlled either. She was started on an ALEXANDRU-inhibitor. For the lupus nephritis patient will continue with prednisone and Plaquenil. On follow-up with Nephrology patient is a will be started on and immunosuppressive therapy. Patient was also noted to have secondary h yperparathyroidism and was started on calcitriol. At this time patient is stable. She is tolerating dialysis well and her hemoglobin and hematocrit have stabilized. She is instructed to follow up with Nephrology as an outpatient for which he verbalizes understanding. She will also need to follow up with PCP for referral to a disease management nurse. Of note. Patient had a reaction to was believed to be of fruit or a medication possibly angioedema. Her lower right lip is just slightly erythematous and the swelling has resolved. Patient has had no other interactions or reactions since this 1 event. Vital Signs/Physical Exam: Temp Pulse Resp BP Pulse Ox 98 F 80 18 171/91 H 98 02/20/20 08:00 02/20/20 08:00 02/20/20 08:00 02/20/20 08:00 02/20/20 08:00 General: Alert, In no apparent distress, Oriented x3, Other (Tessio catheter in place) HEENT: Atraumatic, Normocephalic, PERRLA, Mucous membr. moist/pink (Slightly swollen lower right lip) Neck: Supple, Other (Trachea midline) Respiratory: Clear to auscultation bilaterally, Normal air movement Cardiovascular: No edema, Normal pulses, Regular rate/rhythm Capillary refill: <2 Seconds Gastrointestinal: Normal bowel sounds, Soft and benign, Non-distended Musculoskeletal: No swelling, No contractures, No erythema Integumentary: No rashes, No breakdown, No significant lesion Neurological: Normal gait, Normal speech, Normal strength at 5/5 x4 extr, Normal tone Other Physical/Emotional Findings: Pleasant and cooperative Laboratory Data at Discharge: WBC 8.5 K/uL (4.3-10.9) D 02/20/20 04:19 Hgb 9.6 g/dL (12.0-15.0) L 02/20/20 04:19 Hct 28.0 % (36.0-45.0) L 02/20/20 04:19 Plt Count 81 K/uL (152-406) L* 02/20/20 04:19 PT 11.5 SECONDS (9.5-12.5) 02/11/20 11:57 INR 0.97 02/11/20 11:57 Sodium 142 mmol/L (136-145) 02/18/20 06:07 Potassium 3.8 mmol/L (3.5-5.1) 02/18/20 06:07 BUN 55 mg/dL (7-18) H 02/18/20 06:07 Creatinine 6.58 mg/dL (0.55-1.3) H* 02/18/20 06:07 Glucose 98 mg/dL (74-106) 02/18/20 06:07 Uric Acid 11.4 mg/dL (2.6-6.0) H 02/11/20 20:21 Phosphorus 6.0 mg/dL (2.5-4.9) H 02/18/20 06:07 Magnesium 2.1 mg/dL (1.8-2.4) 02/17/20 05:31 Total Bilirubin 1.7 mg/dL (0.2-1.0) H 02/16/20 05:24 AST 15 U/L (15-37) 02/16/20 05:24 ALT 9 U/L (12-78) L 02/16/20 05:24 Alkaline Phosphatase 59 U/L (45-117) 02/16/20 05:24 Troponin I < 0.02 ng/mL (0.0-0.045) 02/11/20 20:21 Home Medications: Calcitrol [Rocaltrol*] 0.5 mcg PO Q48H 30 Days #15 cap 02/20/20 Calcium Carbonate [Tums Regular*] 500 mg PO AC 30 Days #30 tab 02/20/20 Ferrous Sulfate [Ferrous Sulfate*] 325 mg PO TID 30 Days #90 tab 02/20/20 Hydroxychloroquine [Plaquenil*] 200 mg PO DAILY 30 Days #30 tab 02/20/20 Levetiracetam [Keppra] 500 mg PO BID 30 Days #60 tablet 02/20/20 Loratadine [Claritin*] 10 mg PO DAILY PRN 30 Days #30 tab 02/20/20 Mycophenolate Mofetil [Cellcept] 500 mg PO BID 30 Days #60 02/20/20 Nepro Shake [Nepro*] 237 ml PO BID 30 Days #60 can 02/20/20 Pantoprazole Sodium [Protonix] 40 mg PO DAILY 30 Days #30 tablet. 02/20/20 Venlafaxine HCl [Effexor*] 75 mg PO DAILY 30 Days #30 02/20/20 predniSONE [Deltasone*] 40 mg PO DAILY 30 Days #30 tab 02/20/20 New Medications: Mycophenolate Mofetil [Cellcept] 500 mg PO BID 30 Days #60 Loratadine [Claritin*] 10 mg PO DAILY PRN 30 Days #30 tab PRN Reason: Allergies predniSONE [Deltasone*] 40 mg PO DAILY 30 Days #30 tab Venlafaxine HCl [Effexor*] 75 mg PO DAILY 30 Days #30 Ferrous Sulfate [Ferrous Sulfate*] 325 mg PO TID 30 Days #90 tab Nepro Shake [Nepro*] 237 ml PO BID 30 Days #60 can Hydroxychloroquine [Plaquenil*] 200 mg PO DAILY 30 Days #30 tab Pantoprazole Sodium [Protonix] 40 mg PO DAILY 30 Days #30 tablet. Calcitrol [Rocaltrol*] 0.5 mcg PO Q48H 30 Days #15 cap Calcium Carbonate [Tums Regular*] 500 mg PO AC 30 Days #30 tab Patient Discharge Instructions: Please go over new medications with patient. Make sure patient knows address of dialysis center. Patient needs to follow up with Nephrology as well. Time spent managing pt's care (in minutes): 55
--- NOTE | 2020-02-20 20:04 | PN ---
Date of Progress Note: 02/20/2020 Subjective: The patient was admitted with renal failure, advanced kidney disease, progressed to end- stage renal disease. The patient was started on dialysis. Physical Examination: Vital Signs: Blood pressure 146/86, pulse of 88, afebrile. Chest: Clear to auscultation. Heart: S1, S2. Regular. Abdomen: Soft, nontender. Extremities: No edema. Neurological: Alert, oriented x3. No focal. Laboratory Data: H and H 9.6/28. Sodium 142, potassium 3.8, bicarb 24, BUN 55, creatinine 6.5, calc ium 8.9, phosphorus of 6. Medications: Current medications the patient on include, 1.Heparin. 2.Epogen. 3.Tums. 4.Keppra. 5.Lasix. 6.Zofran. 7.Pantoprazole. Assessment And Plan: 1.End-stage renal disease secondary to lupus nephritis. I am going to continue dialysis 3 times a w saxman. The patient already has set up for outpatient dialysis. We will follow up. 2.Nephrotic range of proteinuria secondary to lupus nephritis. I had long discussion with the patie nt regarding the need to start on ALEXANDRU inhibitor and the . The patient understands that she cannot have a or breast feeding while she is on lisinopril, agreed on the plan. We will st art the patient on lisinopril. We will follow up the serology. 3.Lupus. Continue Plaquenil and prednisone for the time being. 4.Anemia of chronic kidney disease. Continue AIRAM. 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 Continue prednisone. SEBAS Voice ID: [id number] Report ID: [id number]
[2020-02-20 20:32] LABS: Hepatitis C Virus RNA (PCR)log <1.18 log IU/mL
[2020-02-20 22:44] VITALS: BP 162/90; TEMP 97.8
[2020-02-21] MEDS ORDERED: lisinopriL 20 MG TAB PO SCH (09:00)
[2020-02-23 03:57] LABS: Albumin, (SPE) 2.6 g/dL (3.8-4.8); Alpha-1-Globulins 0.3 g/dL (0.2-0.3); Alpha-2-Globulins 0.5 g/dL (0.5-0.9); INTERPRETATION REPORT
== END 2020-02-20 21:40 | disposition home or self-care (01) | DRG 683 ==
LOC: ER 09:43 → ERHOLD 15:25 → 2ND 17:06 → 4TH 23:18 → 2ND 02-12 10:41
PROVIDERS: ADMIT Family Medicine; ATTEND Family Medicine
PROC: 30233N1 Transfusion of Nonautologous Red Blood Cells into Peripheral Vein, Percutaneous Approach (ICD-10-PCS; principal; 2020-02-11)
PROC: 02HV33Z Insertion of Infusion Device into Superior Vena Cava, Percutaneous Approach (ICD-10-PCS; 2020-02-14)
PROC: B5181ZA Fluoroscopy of Superior Vena Cava using Low Osmolar Contrast, Guidance (ICD-10-PCS; 2020-02-14)
PROC: 5A1D70Z Performance of Urinary Filtration, Intermittent, Less than 6 Hours Per Day (ICD-10-PCS; 2020-02-15)
DX: N17.9 Acute kidney failure, unspecified (principal); E87.2 Acidosis; I12.0 Hypertensive chronic kidney disease with stage 5 chronic kidney disease or end stage renal disease; D63.8 Anemia in other chronic diseases classified elsewhere; M32.14 Glomerular disease in systemic lupus erythematosus; M32.9 Systemic lupus erythematosus, unspecified; E83.51 Hypocalcemia; N25.81 Secondary hyperparathyroidism of renal origin; D69.6 Thrombocytopenia, unspecified; N18.6 End stage renal disease; D63.1 Anemia in chronic kidney disease; R74.0 Nonspecific elevation of levels of transaminase and lactic acid dehydrogenase [LDH]; R56.9 Unspecified convulsions; R41.82 Altered mental status, unspecified; T78.3XXA Angioneurotic edema, initial encounter; Z88.0 Allergy status to penicillin; Z20.828 Contact with and (suspected) exposure to other viral communicable diseases; R06.02 Shortness of breath; R05 Cough
CPT/HCPCS: 36415; 36430; 70450; 70551; 71045; 76000; 76770; 80048; 80053; 80069; 80076; 81003; 81015; 81025; 82274; 82550; 82570; 82607; 82652; 82728; 82746; 82805; 83010; 83520; 83540; 83605; 83615; 83735; 83880; 83970; 84100; 84156; 84165; 84439; 84443; 84466; 84484; 84550; 85025; 85044; 85610; 86021; 86038; 86160; 86225; 86317; 86430; 86704; 86706; 86850; 86870; 86900; 86901; 86922; 87070; 87081; 87086; 87088; 87340; 87389; 87522; 90935; 93005; 93306; 94760; 95816; 96360; 96361; 99285; C1752; C9113; J0360; J0610; J0690; J1200; J1644; J1940; J1953; J2250; J2405; J2704; J2930; J3010; J3475; J7030; J7040; J7050; J7512; P9016; Q5105; Q5106; U0002

== ENCOUNTER 2020-02-21 22:29 | Inpatient (IN) | payer OTHER, SELFPAY ==
--- OUTSIDE RECORDS SUMMARY | 2020-02-21 22:31 | XMS REPORT | Continuity of Care Document ---
:1995 Author Organization [facility] t Address [address] [place] [address] Care Team Providers Name Role Phone Asked, No Pcp Primary Care Physician Unavailable Aury VACCINATOR, G Attending Clinician Doctor Unassigned, Name Attending [...] alth use use Lupus Lupus Disease Active [place] nephritis nephritis Heal th 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 Allergies, Adverse Reactions, Alerts Allergy Allergy Status Severity Reaction(s) Onset Inactive Treating Comm ents Source Name Type Date Date Clinician Penicill Propensi Active Shortness Of [place] ins ty to Breath 02-21 Methodi adverse 00:00: st reaction 00 s to drug Amoxicil Propensi Active [place] mariela-Pot ty to 03-01 Health Clavulan adverse 00:00: ate reaction 00 s to drug Penicill Propensi Active [place] ins ty to 03-01 Health adverse 00:00: reaction 00 s to drug Family History Family Member Diagnosis Comments Start Date Stop Date Source Natural father Heart failure [facility] Maternal grandfather Diabetes [facility] Maternal grandfather Heart failure H [facility] Maternal grandmother Stomach cancer [facility] Natural mother Cerebral aneurysm [facility] Natural mother Heart failure [facility] Natural mother Hyperthyroidism [facility] Social History Social Habit Start Date Stop Date Quantity Comments Source Sex Assigned At [place] He alth Alcohol Comment 2018-02-21 2018-02-21 Occasionally [place] 00:00:00 00:00:00 Bahai Alcohol intake 2017-04-24 2017-04-24 Current non-drinker [facility] A 00:00:00 00:00:00 of alcohol (finding) Smoking Status Start Date Stop Date Source Never smoker [facility] Medications Ordered Filled Start Stop Current Ordering Indication Dosage Frequency Signature Comments Components Source Medication Medication Date Date Medication? Clinician (SIG) Name Name hydroxychlo 2016-07 Yes 200mg QD Take 200 H arris roquine 0-08 mg by [facility] (PLAQUENIL) 18:25: mouth 200 mg 57 daily. tablet ferrous 2016-07 Yes 325mg QD Take 325 Harri s sulfate 325 0-08 mg by [facility] mg (65 mg 18:25: mouth iron) [...] Harri s (FOLVITE) 1 0-08 tablet by [facility] lth mg tablet 00:00: mouth 00 daily. sennosides- 2016-07 Yes 1{tbl} QD Take 1 Stahl rris docusate 0-08 tablet by Health sodium 00:00: mouth (SENNA 00 daily. PLUS) 8.6-50 mg tablet hydroxychlo 2016-07 Yes 200mg QD Take 1 Jason ris roquine 0-08 tablet by [facility] (PLAQUENIL) 00:00: mouth 200 mg 00 daily. tablet omeprazole 2016-07 Yes 40mg QD Take 2 Harri s (PRILOSEC) 0-08 capsules Healt h 20 mg 00:00: by mouth delayed 00 daily. release capsule mycophenola 2016-07 Yes Systemic 1500mg Q.5D Take 3 Quispe te 0-08 lupus tablets by [facility] (CELLCEPT) 00:00: erythematos mouth 2 500 [...] Source Future Scheduled 2020-04-24 IMM Influenza Quispe [facility] Test 00:00:00 Seasonal Apr to September (>/= 19 yrs) [code = IMM Influenza Seasonal Apr to September (>/= 19 yrs)] Future Scheduled 2020-02-23 INFLUENZA VACCINE Beto roman Bahai Test 00:00:00 [code = INFLUENZA VACCINE] Future Scheduled [address] [facility] Test 00:00:00 malignant neoplasm of cervix (procedure) [code = 492937458] Future Scheduled 2014 Screening for Jose Enrique Palmer lt Test 00:00:00 malignant neoplasm of cervix (procedure) [code = 175114800] Encounters Start End Encounter Admission Attending Care Care Encounter Source Date/Time Date/Time Type Type Clinicians Facility Department ID 2019-10-05 2019-10-05 Emergency KEELY Jeffers [id number] 17:16:57 20:21:00 Kate Duque [id number] [place] [id number] [place] [id number] 2019-10-05 2019-10-05 Orders Doctor CHATA [id number] 00:00:00 00:00:00 Only Unassigned, ELIZABETH [id number] [place] [id number] 2017-06-03 2017-06-03 Outpatient [facility] [id number] [place] 00:00:00 00:00:00 Health 2017-04-26 2017-04-26 Outpatient [facility] [id number] [place] 07:37:31 07:37:31 Health 2017-04-24 2017-04-24 Outpatient [facility] [id number] [place] 07:21:26 07:21:26 Health 2017-04-23 2017-04-23 Outpatient [facility] [id number] [place] 15:25:08 15:25:08 Health 2017-04-22 2017-04-22 Outpatient [facility] [id number] [place] 10:38:27 10:38:27 Health 2017-04-21 2017-04-21 Emergency [facility] [id number] [place] 04:19:42 04:19:42 Health 2017-04-21 2017-04-21 Inpatient [facility] [id number] [place] 00:52:05 00:52:05 [facility] 2017-04-19 2017-04-19 Emergency [facility] [id number] [place] 18:41:35 18:41:35 Health Results This patient has no known results.
--- OUTSIDE RECORDS SUMMARY | 2020-02-21 22:31 | XMS REPORT | Clinical Summary ---
:[address] [facility] Dist[facility] ict Address [facility] [place] [address] Care Team Providers Name Role Phone Unavailable [...] 17 yrs) 04/24/2020 Results Not on fileafter 02/20/2019 Insurance Payer Benefit Plan / Subscriber ID Effective Dates Phone Addre ss Type Group [facility] SELF-PAY xxxxxxxxx 2017-Prese [phone] [id number]ELF-PAY [address] [place] [address] [address] (Home) ELIZABETHCAROLINE [phone] [id number] (Work) Advance Directives Code Status Date Activated Date Inactivated Comments Full Code 04/21/2017 12:28 PM 05/01/2017 8:31 PM
--- OUTSIDE RECORDS SUMMARY | 2020-02-21 22:31 | XMS REPORT | Clinical Summary ---
:1995 Author Organization [facility] Address [address] [place] [address] Care Team Providers Name Role Phone Asked, [...] INFLUENZA VACCINE 02/23/2020 Results Not on fileafter 02/20/2019 Insurance Payer Benefit Plan / Subscriber ID Effective Dates Phone Addre ss Type Group CVCP CVCP BCBS xxxxxxxxxxxx 2015-Present [address] [place] [address] ([place]) [address] [place] [address] [place] [id number] Advance Directives For more information, please contact: [phone] Type Date Recorded Patient Public Safety Police Explanati on Advance Directives, 06/02/2016 11:51 PM Living Will and Medical Power of Safety Net Maker Advance Directives, 06/03/2016 1:17 AM Living Will and Medical Power of Safety Net Maker
[2020-02-21] MEDS ORDERED: PROMETHAZINE INJ 25 MG/ML AMP ONE (23:07)
[2020-02-21 23:43] LABS: Absolute Lymphocytes (CBC) 0.6 K/uL (0.7-4.9); Basophils % 0.2 % (0-1.3); Lymphocytes % 9.9 % (15.3-44.8); MPV 9.3 fL (7.6-11.3); RBC Red Blood Cell Count 2.98 M/uL (3.86-4.86)
[2020-02-21 23:53] LABS: Potassium 4.4 mmol/L (3.5-5.1)
[2020-02-22 01:21] LABS: Blood Morphology Comment NOTED (NOT SEEN); Platelet Estimate DECR; Polychromasia 1+; Urine White Blood Cell Casts OK
[2020-02-22] MEDS ORDERED: ONDANSETRON 4 MG/2 ML VIAL IV PRN (02:16)
--- NOTE | 2020-02-22 02:35 | EDPHYS ---
Physician Documentation [facility] Name: Amira Ruiz Age: 24 yrs Sex: Female : 1995 Arrival Date: 02/21/2020 Time: 22:32 Bed 18 Private MD: ED Physician Daniel Devlin HPI: 02/20 23:23 This 24 yrs old Black Female presents to ER via Ambulatory with complaints of Headache, snw Vomiting. 23:23 The patient complains of pain to the generalized. The patient describes the headache as snw a pressure. Onset: The symptoms/episode began/occurred today. Associated signs and symptoms: Pertinent positives: vomiting. The symptoms are alleviated by nothing. the symptoms are aggravated by vomiting. The patient has not experienced similar symptoms in the past. discharged from [facility], yesterday post 9 day admission for acute kidney injury, anemia, began dialysis. 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 - Social history:: Smoking status: Patient denies any tobacco usage or history of. ROS: 23:21 Eyes: Negative for injury, pain, redness, and discharge, ENT: Negative for injury, snw pain, and discharge, Neck: Negative for injury, pain, and swelling, Cardiovascular: Negative for chest pain, palpitations, and edema, Respiratory: Negative for shortness of breath, cough, wheezing, and pleuritic chest pain. 23:21 Back: Negative for injury and pain, : Negative for injury, bleeding, discharge, and swelling, MS/Extremity: Negative for injury and deformity, Skin: Negative for injury, rash, and discoloration, Neuro: Negative for headache, weakness, numbness, tingling, and seizure, Psych: Negative for depression, anxiety, suicide ideation, homicidal ideation, and hallucinations. 23:21 Constitutional: Positive for malaise, poor PO intake. 23:21 Abdomen/GI: Positive for nausea and vomiting. Exam: 23:21 Head/Face: Normocephalic, atraumatic. Eyes: Pupils equal round and reactive to light, snw extra-ocular motions intact. Lids and lashes normal. Conjunctiva and sclera are non-icteric and not injected. Cornea within normal limits. Periorbital areas with no swelling, redness, or edema. ENT: Nares patent. No nasal discharge, no septal abnormalities noted. Tympanic membranes are normal and external auditory canals are clear. Oropharynx with no redness, swelling, or masses, exudates, or evidence of obstruction, uvula midline. Mucous membranes moist. Neck: Trachea midline, no thyromegaly or masses palpated, and no cervical lymphadenopathy. Supple, full range of motion without nuchal rigidity, or vertebral point tenderness. No Meningismus. Chest/axilla: Normal chest wall appearance and motion. Nontender with no deformity. No lesions are appreciated. Cardiovascular: Regular rate and rhythm with a normal S1 and S2. No gallops, murmurs, or rubs. Normal PMI, no JVD. No pulse deficits. Respiratory: Lungs have equal breath sounds bilaterally, clear to auscultation and percussion. No rales, rhonchi or wheezes noted. No increased work of breathing, no retractions or nasal flaring. Abdomen/GI: Soft, non-tender, with normal bowel sounds. No distension or tympany. No guarding or rebound. No evidence of tenderness throughout. Back: No spinal tenderness. No costovertebral tenderness. Full range of motion. Skin: Warm, dry with normal turgor. Normal color with no rashes, no lesions, and no evidence of cellulitis. MS/ Extremity: Pulses equal, no cyanosis. Neurovascular intact. Full, normal range of motion. Neuro: Awake and alert, GCS 15, oriented to person, place, time, and situation. Cranial nerves II-XII grossly intact. Motor strength 5/5 in all extremities. Sensory grossly intact. Cerebellar exam normal. Normal gait. Psych: Awake, alert, with orientation to person, place and time. Behavior, mood, and affect are within normal limits. 23:21 Constitutional: The patient appears awake, well developed, in obvious distress, moderately distressed. Vital Signs: 22:50 Resp 18; Pulse Ox 100% on R/A; Pain 10/10; ks7 23:01 BP 177 / 107; Pulse 79; Resp 18; Temp 98.8(TE); Pulse Ox 100% on R/A; Weight 56.7 kg; ks7 Height 4 ft. 11 in. (149.86 cm); Pain 10/10; 23:34 Pulse Ox 100% ; Pain 8/10; ks7 23:35 BP 184 / 106; Pulse 90; Resp 18; Pulse Ox 100% on R/A; Pain 7/10; ks7 02/21 00:02 BP 180 / 100; Pulse 80; Resp 18; Pulse Ox 100% on R/A; Pain 7/10; ks7 00:55 BP 171 / 109; Pulse 96; Resp 18; Pulse Ox 100% on R/A; mg2 02:04 BP 182 / 105; Pulse 88; Resp 18; Pulse Ox 100% on R/A; mg2 02:48 BP 169 / 101; Pulse 94; Resp 18; Pulse Ox 100% on R/A; rr5 03:46 BP 161 / 102; Pulse 83; Resp 15; Temp 98.5; Pulse Ox 99% ; rr5 02/20 23:01 Body Mass Index 25.25 (56.70 kg, 149.86 cm) ks7 02/20 23:35 headache improving ks7 [place] Coma Score: 02/21 01:14 Eye Response: spontaneous(4). Verbal Response: oriented(5). Motor Response: obeys snw commands(6). Total: 15. MDM: 02/20 22:39 Patient medically screened. snw 02/21 01:14 Data reviewed: vital signs, nurses notes, lab test result(s). Counseling: I had a snw detailed discussion with the patient and/or guardian regarding: the historical points, exam findings, and any diagnostic results supporting the discharge/admit diagnosis, the presence of at least one elevated blood pressure reading (>120/80) during this emergency department visit, lab results. Response to treatment: pt has decreased headache, decreased nausea, up to void. Pt states she just feels off since she stood to go to bathroom. Assisted to and then from bathroom. Dr. Devlin at bedside. Labs improved since admission 9 days ago however pt states she continues to feel "off". 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 Chronicity unknown. Will repeat CT. Pt states she had "small stroke" in 2011. 01:40 Physician consultation: Corine Iglesias MD was called at 01:40, was contacted at 01:40, snw regarding patient's condition, awaiting CT head results, would like consultation with Dr. Dr. Dhaliwal. 02:32 Physician consultation: Mir Dhaliwal MD was called at 02:00, was contacted at 02:00, snw regarding consult, patient's condition, Can keep for obs for further studies. 02/20 23:17 Order name: Magnesium; Complete Time: 00:44 snw 02/20 23:17 Order name: Phosphorus; Complete Time: 00:44 snw 02/20 23:17 Order name: CBC with Diff; Complete Time: 01:26 snw 02/20 23:17 Order name: Chem 7; Complete Time: 00:44 snw 02/20 23:23 Order name: Gastric Occult Blood; Complete Time: 00:44 sg 02/20 23:54 Order name: CBC Smear Scan; Complete Time: 01:26 EDMS 02/21 02:35 Order name: C-Reactive Protein EDMS 02/21 02:35 Order name: CBC with Automated Diff EDMS 02/21 02:35 Order name: CBC with Automated Diff EDMS 02/21 02:35 Order name: Comprehensive Metabolic Panel EDMS 02/21 02:35 Order name: Comprehensive Metabolic Panel EDMS 02/21 02:35 Order name: Lipid Profile EDMS 02/21 02:35 Order name: Lipid Profile EDMS 02/20 23:17 Order name: Chest Single View XRAY snw 02/21 01:04 Order name: CT Head Brain wo Cont snw 02/21 02:35 Order name: Echo with Doppler EDMS 02/21 02:35 Order name: Echo with Doppler EDMS 02/21 02:35 Order name: Magnesium EDMS 02/21 02:35 Order name: Magnesium EDMS 02/21 02:35 Order name: Phosphorus EDMS 02/21 02:35 Order name: Phosphorus EDMS 02/21 02:35 Order name: Protime (+INR) EDMS 02/21 02:35 Order name: Protime (+INR) EDMS 02/21 02:35 Order name: PTT, Activated Partial Thromb EDMS 02/21 02:35 Order name: PTT, Activated Partial Thromb EDMS 02/21 02:35 Order name: Sedimentation Rate, Ilyaergren EDID 02/21 02:35 Order name: Sedimentation Rate, Ilyaergren [facility] 02/21 02:35 Order name: Stroke Protocol [facility] 02/21 02:36 Order name: Lumbar Puncture For Dx [facility] 02/20 23:17 Order name: Gastrocult; Complete Time: 23:33 snw 02/21 02:35 Order name: CONS Physician Consult [facility] 02/21 02:35 Order name: Physical Therapy Consult [facility] 02/21 02:36 Order name: Speech Therapy Consult [facility] 02/21 02:36 Order name: Carotid Artery Bilateral EDID Administered Medications: 02/20 23:00 Drug: Phenergan 25 mg Route: IM; Site: right deltoid; ks7 23:34 Follow up: Pulse Ox 100% ; Pain 8/10 Adult; pt states she feels a little better. no ks7 longer vomiting but still nauseous Disposition: 02/21 04:51 Co-signature as Attending Physician, Daniel Devlin MD. rn Disposition: 02/22/20 02:34 Hospitalization ordered by Corine gIlesias for Observation. Preliminary diagnosis are Vomiting, unspecified, Ataxia, unspecified. - Bed requested for Telemetry/MedSurg (observation). - Status is Observation. rr5 - Condition is Stable. - Problem is an acute exacerbation. - Symptoms are unchanged. Signatures: Dispatcher [employer] [facility] Lydia Pastrana RN RN Tali Mehta, SUPERVISOR SPECIAL EFFECTS-C SUPERVISOR SPECIAL EFFECTS-Csnw Daniel Devlin MD MD rn Roque, Raymond RN RN rr5 Angelia Taylor RN RN ks7 Corrections: (The following items were deleted from the chart) 02/20 23:18 23:17 CALCIUM+C.LAB.BRZ ordered. [facility] 02/21 03:30 02:34 Hospitalization Ordered by Corine Iglesias MD for Observation. Preliminary mw diagnosis is Vomiting, unspecified; Ataxia, unspecified. Bed requested for Telemetry/MedSurg (observation). Status is Observation. Condition is Stable. Problem is an acute exacerbation. Symptoms are unchanged. snw 04:32 03:30 02/22/2020 02:34 Hospitalization Ordered by Corine Iglesias MD for Observation. rr5 Preliminary diagnosis is Vomiting, unspecified; Ataxia, unspecified. Bed requested for Telemetry/MedSurg (observation). Status is Observation. Condition is Stable. Problem is an acute exacerbation. Symptoms are unchanged. mw
--- NOTE | 2020-02-22 02:35 | ER ---
Nurse's Notes [facility] Name: Amira Ruiz Age: 24 yrs Sex: Female : 1995 Arrival Date: 02/21/2020 Time: 22:32 Bed 18 Private MD: Diagnosis: Vomiting, unspecified;Ataxia, unspecified Presentation: 02/20 22:50 Chief complaint: Patient states: N/V BLACKMON started 30 minutes ago. Coronavirus screen: ks7 Client denies travel out of the [place] in the last 14 days. vomiting. At this time, the client does not indicate any symptoms associated with coronavirus-19. The client denies any previous COVID testing. Ebola Screen: Patient negative for fever greater than or equal to 101.5 degrees Fahrenheit, and additional compatible Ebola Virus Disease symptoms Patient denies exposure to infectious person. Patient denies travel to an Ebola-affected area in the 21 days before illness onset. Initial Sepsis Screen: Does the patient meet any 2 criteria? No. Patient's initial sepsis screen is negative. Does the patient have a suspected source of infection? No. Patient's initial sepsis screen is negative. 22:50 Method Of Arrival: Ambulatory ks7 22:52 Risk Assessment: Do you want to hurt yourself or someone else? Patient reports no ks7 desire to harm self or others. Onset of symptoms was February 21, 2020. 22:52 Acuity: BRIT 3 ks7 Triage Assessment: 22:54 Headache History: The patient has had previous headaches and this one is more severe ks7 than previous episodes. General: Appears distressed, uncomfortable, Behavior is cooperative. Pain: Pain currently is 10 out of 10 on a pain scale. Pain began 30 min ago. Also complains of nausea. Neuro: No deficits noted. 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 - Social history:: Smoking status: Patient denies any tobacco usage or history of. Screenin:03 Abuse screen: Denies threats or abuse. Denies injuries from another. Nutritional ks7 screening: No deficits noted. Tuberculosis screening: No symptoms or risk factors identified. Fall Risk None identified. Assessment: 23:03 Pain: Complains of pain in [place]ACK[place] Pain currently is 10 out of 10 on a pain scale. Quality ks7 of pain is described as aching, Pain began 30 min ago. Neuro: No deficits noted. GI: pt with nausea and vomiting in ED. 23:12 General: Appears. ks7 23:53 Reassessment: PLT [id number]. notified Tali LOZANO face to face. ks7 02/21 01:04 General: Appears in no apparent distress. comfortable, Behavior is calm, cooperative. mg2 Neuro: Reports headache frontal area, that is the "worst ever". Cardiovascular: Capillary refill < 3 seconds Patient's skin is warm and dry. Respiratory: Airway is patent Respiratory effort is even, unlabored, Respiratory pattern is regular, symmetrical. GI: Reports vomiting. : No signs and/or symptoms were reported regarding the genitourinary system. EENT: No signs and/or symptoms were reported regarding the EENT system. Derm: Skin is intact, is healthy with good turgor, Skin is pink, warm \\T\\ dry. normal. Musculoskeletal: Circulation, motion, and sensation intact. Capillary refill < 3 seconds, Reports weakness in whole body. 01:05 General: Smith () updated about the patient. [phone]. mg2 01:19 Reassessment: patient sent to ct scan via stretcher. mg2 01:58 Reassessment: patient verbalized that her headache is on and off and better now. mg2 02:30 Reassessment: Patient appears in no apparent distress at this time. No changes from mg2 previously documented assessment. patient agreed to be admitted. provider also spoke to the patient. 03:00 Reassessment: Patient appears in no apparent distress at this time. Patient is alert, rr5 oriented x 3, equal unlabored respirations, skin warm/dry/pink. awaiting for room assignment Patient states symptoms have improved. 04:02 Reassessment: Patient appears in no apparent distress at this time. Patient is alert, rr5 oriented x 3, equal unlabored respirations, skin warm/dry/pink. for transfer to room 205 Patient denies pain at this time. Patient states feeling better. Patient states symptoms have improved. Vital Signs: 02/20 22:50 Resp 18; Pulse Ox 100% on R/A; Pain 10/10; ks7 23:01 BP 177 / 107; Pulse 79; Resp 18; Temp 98.8(TE); Pulse Ox 100% on R/A; Weight 56.7 kg; ks7 Height 4 ft. 11 in. (149.86 cm); Pain 10/10; 23:34 Pulse Ox 100% ; Pain 8/10; ks7 23:35 BP 184 / 106; Pulse 90; Resp 18; Pulse Ox 100% on R/A; Pain 7/10; ks7 02/21 00:02 BP 180 / 100; Pulse 80; Resp 18; Pulse Ox 100% on R/A; Pain 7/10; ks7 00:55 BP 171 / 109; Pulse 96; Resp 18; Pulse Ox 100% on R/A; mg2 02:04 BP 182 / 105; Pulse 88; Resp 18; Pulse Ox 100% on R/A; mg2 02:48 BP 169 / 101; Pulse 94; Resp 18; Pulse Ox 100% on R/A; rr5 03:46 BP 161 / 102; Pulse 83; Resp 15; Temp 98.5; Pulse Ox 99% ; rr5 02/20 23:01 Body Mass Index 25.25 (56.70 kg, 149.86 cm) ks7 02/20 23:35 headache improving ks7 [place] Coma Score: 02/21 01:14 Eye Response: spontaneous(4). Verbal Response: oriented(5). Motor Response: obeys snw commands(6). Total: 15. ED Course: 02/20 22:32 Patient arrived in ED. ag3 22:39 Tali Montejo FNP-C [facility]. snw 22:39 Daniel Devlin MD is Attending Physician. snw 22:49 Angelia Taylor, APOLLO is Primary Nurse. ks7 22:53 Triage completed. ks7 22:54 Arm band placed on. ks7 23:03 Patient has correct armband on for positive identification. Bed in low position. Call ks7 light in reach. Side rails up X2. 23:03 No provider procedures requiring assistance completed. ks7 23:33 Gastric Occult Blood Sent. ks7 23:33 Chem 7 Sent. ks7 23:33 CBC with Diff Sent. ks7 23:33 Phosphorus Sent. ks7 23:33 Magnesium Sent. ks7 23:34 Resting quietly. portable xray. ks7 23:34 Inserted saline lock: 20 gauge in left antecubital area, using aseptic technique. Blood ks7 collected. 23:51 Chest Single View XRAY In Process Unspecified. EDMS 02/21 00:02 Report given to Noy BUSTILLOS. ks7 01:37 CT Head Brain wo Cont In Process Unspecified. EDMS 02:33 Corine Iglesias MD is Hospitalizing Provider. snw 04:02 Patient admitted, IV remains in place. intact, No redness/swelling at site. rr5 Administered Medications: 02/20 23:00 Drug: Phenergan 25 mg Route: IM; Site: right deltoid; ks7 23:34 Follow up: Pulse Ox 100% ; Pain 8/10 Adult; pt states she feels a little better. no ks7 longer vomiting but still nauseous Intake: Outcome: 02/21 02:34 Decision to Hospitalize by Provider. snw 04:01 Admitted to Med/surg accompanied by nurse, via stretcher, room 205, with chart, Report rr5 called to [facility] 04:01 Condition: stable 04:01 Instructed on the need for admit. 04:32 Patient left the ED. rr5 Signatures: Dispatcher [employer] EDTali Albrecht, CLIENT CARE REPRESENTATIVE-C CLIENT CARE REPRESENTATIVE-Csnw El Dejesus RN RN mg2 Carolynn Bello3 Alberto Grimm RN RN rr5 Angelia Taylor RN RN ks7 Corrections: (The following items were deleted from the chart) 02/20 23:06 23:01 Pulse 79bpm; Resp 18bpm; Pulse Ox 100% RA; Temp 98.8F Temporal; 56.7 kg; Height 4 ks7 ft. 11 in.; BMI: 25.2; Pain 10/10; ks7
[2020-02-22] MEDS: NA CHLORIDE 0.9% 1,000 ML IV SCH ×2 (05:04→16:20)
[2020-02-22 05:20] LABS: Absolute Lymphocytes (CBC) 1.3 K/uL (0.7-4.9); Basophils % 0.3 % (0-1.3); Hematocrit 29.6 % (36.0-45.0); Lymphocytes % 17.4 % (15.3-44.8); MPV 8.9 fL (7.6-11.3); RBC Red Blood Cell Count 2.86 M/uL (3.86-4.86)
[2020-02-22] MEDS ORDERED: LORATADINE 10 MG TAB PO PRN (05:35)
[2020-02-22 05:41] LABS: AST/SGOT 13 U/L (15-37); Albumin 2.9 g/dL (3.4-5.0); Alkaline Phosphatase 61 U/L (45-117); BUN Blood Urea Nitrogen 41 mg/dL (7-18); Bicarbonate 28 mmol/L (21-32); Bilirubin Total 1.7 mg/dL (0.2-1.0); C-Reactive Protein 6.92 mg/L (<3.00); Glucose Level 84 mg/dL (74-106); HDL Cholesterol 85 mg/dL (40-60); LDL Cholesterol, Calculated 10 (<130); Phosphorus 3.3 mg/dL (2.5-4.9); Potassium 3.9 mmol/L (3.5-5.1); Protein, Total 7.2 g/dL (6.4-8.2); Sodium Level 141 mmol/L (136-145)
[2020-02-22 05:42] LABS: ALT/SGPT < 6 U/L (12-78)
--- NOTE | 2020-02-22 05:44 | P.HP ---
Certification for Inpatient Patient admitted to: Inpatient With expected LOS: >2 Midnights Patient will require the following post-hospital care: None Practitioner: I am a practitioner with admitting privileges, knowledge of patient current condition, hospital course, and medical plan of care. 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 Patient also has some abnormalities with CT of the brain. Patient had a repeat CT scan done tonight which showed progression of neurologic inflammation or ischemia. The emergency room spoke with neurologist who recommended admission for further evaluation. Fluoroscopic LP will be done this morning. MRI stroke protocol as well. Otherwise, patient appears to be doing much better. She was a little confused on arrival to the ER but her symptoms have resolved. She will be admitted to the hospital for further workup. Allergies Penicillins Allergy (Verified 02/22/20 04:41) Hives/Rash Home Medications: Calcitrol [Rocaltrol*] 0.5 mcg PO Q48H 30 Days #15 cap 02/20/20 Ferrous Sulfate [Ferrous Sulfate*] 325 mg PO TID 30 Days #90 tab 02/20/20 Hydroxychloroquine [Plaquenil*] 200 mg PO DAILY 30 Days #30 tab 02/20/20 Levetiracetam [Keppra] 500 mg PO BID 30 Days #60 tablet 02/20/20 Loratadine [Claritin*] 10 mg PO DAILY PRN 30 Days #30 tab 02/20/20 Mycophenolate Mofetil [Cellcept] 500 mg PO BID 30 Days #60 02/20/20 Nepro Shake [Nepro*] 237 ml PO BID 30 Days #60 can 02/20/20 Pantoprazole Sodium [Protonix] 40 mg PO DAILY 30 Days #30 tablet. 02/20/20 Venlafaxine HCl [Effexor*] 75 mg PO DAILY 30 Days #30 02/20/20 predniSONE [Deltasone*] 40 mg PO DAILY 30 Days #30 tab 02/20/20 Calcium Carbonate [Tums Regular*] 500 mg PO TID 02/22/20 - Past Medical/Surgical History Has patient received pneumonia vaccine in the past: No Diabetic: No -: Lupus -: Acute renal failure/ ESRD/dialysis pt -: Congestive heart failure status post pericardial window in 2007 -: Anemia -: Right kidney biopsy -: Pericardial window Psychosocial/ Personal History: . Lives at home with . No children - Family History Mother Medical History: Heart disease, Kidney disease Aunt Medical History: Diabetes Grandmother Medical History: Diabetes - Social History Smoking Status: Never smoker Alcohol use: No CD- Drugs: No Caffeine use: No Place of Residence: Home Review of Systems 10-point ROS is otherwise unremarkable Physical Examination - Vital Signs Temperature: 97.5 F Blood Pressure: 201/105 Pulse: 78 Respirations: 14 Pulse Ox (%): 100 - Physical Exam General: Alert, In no apparent distress, Oriented x3 HEENT: Atraumatic, PERRLA, Mucous membr. moist/pink, EOMI, Sclerae nonicteric Neck: Supple, 2+ carotid pulse no bruit, No LAD, Without JVD or thyroid abnormality Respiratory: Clear to auscultation bilaterally, Normal air movement Cardiovascular: Regular rate/rhythm, Normal S1 S2, No murmurs Gastrointestinal: Normal bowel sounds, Soft and benign, Non-distended, No tenderness Musculoskeletal: No clubbing, No swelling, No tenderness Integumentary: No rashes Neurological: Normal gait, Normal speech, Normal strength at 5/5 x4 extr, Normal tone, Sensation intact, Cranial nerves 3-12 intact, Normal affect Lymphatics: No axilla or inguinal lymphadenopathy - Studies Laboratory Data (last 24 hrs) 02/21/20 23:27: WBC 6.5 D, Hgb 10.4 L, Hct 31.0 L, Plt Count 89 L* 02/21/20 23:27: Sodium 141, Potassium 4.4, BUN 38 H, Creatinine 4.73 H D, Glucose 115 H, Phosphorus 3.0, Magnesium 2.0 Microbiology Data (last 24 hrs): 02/21/20 23:15 Gastric Aspirate Gastric Occult Blood - Final Assessment & Plan - Problems (Diagnosis) (1) Lupus nephritis Current Visit: Yes Status: Acute (2) ESRD (end stage renal disease) Current Visit: Yes Status: Acute (3) Altered mental status Current Visit: Yes Status: Acute (4) Near syncope Current Visit: Yes Status: Acute (5) Lupus cerebritis Current Visit: Yes Status: Acute - Plan Plan: 1. Anti-inflammatory 2. Anti-platelet therapy and statin therapy 3. Stroke protocol MRI 4. Discuss with Radiology regarding lumbar puncture; 5. Hemodialysis per Nephrology 6. Resume immunosuppressant including CellCept and Plaquenil 7. Monitor LFTs 8. Strict blood pressure control 9. GI and DVT prophylaxis Discharge Plan: Home Plan to discharge in: Greater than 2 days - Advance Directives Does patient have a Living Will: No Does patient have a Durable POA for Healthcare: No - Code Status/Comfort Care Code Status Assessed: Yes Code Status: Full Code Critical Care: No Time Spent Managing PTS Care (In Minutes): 50
[2020-02-22 05:51] LABS: Protime INR 0.97
[2020-02-22] MEDS ORDERED: SODIUM BICARB 50 MEQ/50ML VIAL ONE ×2 (06:17→06:19)
[2020-02-22] MEDS: AMLODIPINE 10 MG TAB PO SCH (06:18)
[2020-02-22] MEDS: METOPROLOL TAR 25 MG TAB PO SCH ×2 (06:18→17:00)
[2020-02-22] MEDS: CALCITROL 0.25 MCG CAP PO SCH (06:20)
--- NOTE | 2020-02-22 07:54 | RAD REPORT ---
EXAM DESCRIPTION: Chun Single View02/21/2020 11:51 pm CLINICAL HISTORY: Chest pain COMPARISON: February 13 FINDINGS: The lungs appear clear of acute infiltrate. The heart is normal size. Central venous cath eter with its tip the superior vena cava IMPRESSION: No acute abnormalities displayed
[2020-02-22] MEDS ORDERED: METHYLPRED NA SUC 500 MG in NA CHLORIDE 0.9% 100 ML IV SCH (08:00)
[2020-02-22] MEDS ORDERED: HYDRALAZINE HCL 20 MG/ML VIAL IV PRN (08:51)
[2020-02-22] MEDS: NEPRO SHAKE 237 ML CAN PO SCH ×2 (09:00→21:00)
[2020-02-22] MEDS: MYCOPHENOLATE MOFETIL 500 MG PO SCH ×2 (09:00→21:00)
[2020-02-22] MEDS: ASPIRIN EC 81 MG TAB PO SCH (09:00)
[2020-02-22] MEDS: CALCIUM CARBONATE CHEW 500MG TAB PO SCH ×3 (09:41→21:10)
[2020-02-22] MEDS: VENLAFAXINE HCL 75 MG TABLET PO SCH (09:41)
[2020-02-22] MEDS: FERROUS SULFATE 325 MG TAB PO SCH ×3 (09:41→21:10)
[2020-02-22] MEDS: PANTOPRAZOLE 40MG TABLET PO SCH (09:42)
[2020-02-22] MEDS: HYDROCORTISONE SUC 100 MG INJ IV SCH ×2 (09:42→17:00)
[2020-02-22] MEDS: HYDROXYCHLOROQUINE 200MG TAB PO SCH (09:50)
[2020-02-22] MEDS: levETIRAcetam 500 MG TAB PO SCH ×2 (09:50→21:10)
--- NOTE | 2020-02-22 11:32 | RAD REPORT ---
EXAM DESCRIPTION: CT - Head Brain Wo Cont - 02/22/2020 2:26 am ADDENDUM #1 THIS REPORT CONTAINS FINDINGS THAT MAY BE CRITICAL TO PATIENT CARE: The findings were verbally discussed via telephone conference with Dr. Daniel Devlin by Dr. Dalton Nolasco on 02/21 2:06 AM CDT .The results were acknowledged and understood. Electronically signed by: Gillian Nolasco MD 02/22/2020 2:06 AM CDT End of Addendum EXAM DESCRIPTION: CT Head Without Intravenous Contrast CLINICAL HISTORY: The patient is 24 years old and is Female; HEADACHE TECHNIQUE: Axial computed tomography images of the head/brain without intravenous contrast. Sagitt al and coronal reformatted images were created and reviewed. This CT exam was performed using one o r more of the following dose reduction techniques: automated exposure control, adjustment of the mA and/or kV according to patient size, and/or use of iterative reconstruction technique. COMPARISON: CT and MRI of the head February 18, 2020 FINDINGS: BRAIN: Progression of the cortical and subcortical low-attenuation along the right super ior parietal lobe is present. Subtle area of low attenuation within the cortical and subcortical heather ons of the left superior frontal lobe is noted. No intracranial hemorrhage, mass effect, or midline s hift is seen. VENTRICLES: Unremarkable. No ventriculomegaly. BONES/JOINTS: No acute fracture. SOFT TISSUES: Unremarkable. SINUSES: Unremarkable as visualized. No acute sinusitis. MASTOID AIR CELLS: Unremarkable as visualized. No mastoid effusion. ORBITS: Unremarkable as visualized. IMPRESSION: Interval progression of the areas of cortical and subcortical low attenuation throughout the right parietal lobe and to a lesser extent the left frontal lobe. Findings are suggestive of enc ephalitis. Further evaluation with an MRI without and with contrast is recommended. Electronically signed by: Gillian Nolasco MD 02/22/2020 1:56 AM CDT Due to temporary technical issues with the PACS/Fluency reporting system, reports are being signed by the in house radiologist without review as a courtesy to ensure prompt reporting. The interpreting r adiologist is fully responsible for the content of the report.
--- NOTE | 2020-02-22 11:57 | RAD REPORT ---
EXAM DESCRIPTION: RAD - Lumbar Spine 3 Views - 02/22/2020 11:49 am CLINICAL HISTORY: Back pain FINDINGS: The alignment of the lumbar spine is satisfactory. No fracture or dislocation is seen. No bone or joint abnormality seen
--- NOTE | 2020-02-22 12:14 | RAD REPORT ---
EXAM DESCRIPTION: USCarotid Artery Bilateral02/22/2020 11:55 am CLINICAL HISTORY: CVA COMPARISON: None FINDINGS: The velocity of the right internal carotid artery equals 91 cm/sec. The right ICA/CCA rati o 1.3 The velocity of the left internal carotid artery equals 84 cm/sec. The left ICA/CCA ratio 1.1 No plaque is present within the carotid arteries. The vertebral arteries demonstrate antegrade flow Left thyroid nodule IMPRESSION: No plaque within the carotid arteries Left thyroid nodule. Thyroid ultrasound recommended for further evaluation NASCET criteria used. Mild 0-49% stenosis Moderate 50-69% stenosis Severe 70-99% stenosis
--- NOTE | 2020-02-22 13:06 | RAD REPORT ---
EXAM DESCRIPTION: MRI - Brain Wo Cont - 02/22/2020 12:48 pm CLINICAL HISTORY: Abnormal CT; ischemia; cerebritis; arteritis Stroke protocol contrast study examination could not be performed due to abnormal renal function. COMPARISON: MRA Head Wo Cont dated 02/22/2020; Head Brain Wo Cont dated 02/22/2020; Brain Wo Cont date d 02/18/2020 TECHNIQUE: Sagittal T1-weighted images were obtained along with axial PD, heavily T2-weighted and T2 -FLAIR images. Axial DWI and ADC mapping sequences were also obtained along with coronal heavily T2-w eighted images. FINDINGS: No acute infarction changes are present. No midline shift or significant mass effect ident ifiable. Prior MRI of February 17 showed bilateral cerebral cortical and subcortical T2/IR signal abnorma lity. The medial right parietal component is slightly worse than seen February 17. Current examination shows a new area in the medial left occipital lobe. There is a new focus of signal abnormality at the lentiform nucleus anterior limb internal capsule junction on the left. No cavitation or abscess form ation at this time. Cerebellum and brainstem or spared any signal abnormality. No extra-axial fluid c ollections. Signal voids are seen as a normal finding in the major intracranial vessels. No sella or supra sella abnormality. No globe or orbital content abnormality seen. Mastoid air cells are clear. Paranasal sinus mucosal thickening changes are present. No air-fluid lev el or paranasal sinus mass. Cerebritis/encephalitis remains the most likely etiology. Signal abnormalities related to vasculitis/ arteritis also consideration. Infarction is not currently suspected. Malignancy etiology not suspecte d but would be very uncommon in a patient this age. IMPRESSION: Cerebritis/encephalitis findings have progressed since February 17 imaging. No abscess or cavitation at this time. Brainstem and cerebellum remains spared.
--- NOTE | 2020-02-22 13:27 | RAD REPORT ---
EXAM DESCRIPTION: MRI - MRA Head Wo Cont - 02/22/2020 12:48 pm CLINICAL HISTORY: Cerebritis/arteritis, headache COMPARISON: MRI brain same date TECHNIQUE: Axial and coronal 3D [id number] image acquisition was performed. 3D rotational images were generated with source and reconstruction images reviewed. Horizontal and vertical axis rotation al views generated using MIP protocol. FINDINGS: Exam suffers from motion degradation but is still considered to be diagnostic. Small distal left vertebral artery is present. Basilar artery shows no focal stenosis or abnormal con tour. The left posterior cerebral artery P1 segment is very small and slightly irregular. The patient does appear to have a large left posterior communicating artery which could explain this finding. Justin th posterior cerebral arteries show slightly irregular contour. No focal stenoses of the distal poste rior cerebral artery distributions. Cavernous portions of each internal carotid artery show slightly irregular contour. The right middle cerebral artery M2 and M3 branches show slight irregular contour changes. No focal stenosis or major branch occlusion on the right. Both anterior cerebral arteries show irregular contour of each A1 segm ent. This is possibly due to the motion affects. Long segment significant narrowing of the left middl e cerebral artery M2 and proximal M3 branches noted. IMPRESSION: Bilateral middle cerebral artery abnormalities of irregular contour and left middle cere bral artery significant long segment stenoses. Patient has irregular narrowing of the bilateral anterior cerebral artery A1 segments and left copy lathe tender ior cerebral P1 segments. This could be due to vascular disease or possibly the affects of motion for the anterior cerebral findings and anatomic variant for the left posterior cerebral finding. 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
--- NOTE | 2020-02-22 20:43 | CON ---
Consultation called because of altered mental status and abnormal possible cerebritis in the central nervous system. History Of Present Illness: Ms. Ruiz is a 24-year-old right-handed patient with en d-stage renal disease, on hemodialysis, hypertension, who was recently in hospital with seizure like activity and was discharged home on Keppra. She said earlier today actually last night around 10 p.m . she had just eaten 2 boiled eggs, then suddenly developed some fair headache rated 10/10, headache was on the whole head associated with light and sound sensitivity, nausea and vomiting and she said h er thought she was slightly disoriented. He brought her [facility] and she had a he ad CT scan done at 01:04 in the morning. The study is actually reported out at 02:26 in the morning and showed interval progression of areas of cortical and subcortical low attenuation throughout the r ight parietal lobe, to less extent the left frontal lobe suggestive of encephalitis. Further evaluat ion of MRI without and with contrast is recommended. She did have the brain MRI done around 01:19 to day in afternoon. Study did show cerebritis encephalitis pattern which is progressed, and was actual ly compared to the study done February 17, although in that study it was not clear that she had a cereb ritis or encephalitis just was read out as possible small-vessel disease. In any event the patient s aid that her headache resolved after about 6 hours and she denied receiving any medications for the h eadache. After discharge home at last service, she was on Keppra 500 mg twice daily, which she kathryn nued. She was put on aspirin 162 mg daily, Norvasc 10 mg daily, Lopressor 25 mg twice daily, and Eff exor 75 mg daily, and she had hemodialysis today, which is her Tuesday, Tuesday, Tuesday and today is Tuesday, day for hemodialysis at this point. She is back to baseline. Denies any headaches, fevers, chills, any nausea, vomiting, any arthralgias or myalgias. No rash or psychiatric issues. Past Medical History: As indicated, acute renal failure, congestive heart failure. Surgical History: Of a pericardial window in 2007 and right kidney biopsy and she has hemodialysis p ort. Allergies: PENICILLIN. Medications: Currently Effexor 75 mg daily, Protonix 40 mg daily, Zofran 4 mg every 4 hours as neede d, Lopressor 25 mg daily, Claritin 10 mg daily, Keppra 500 mg twice daily, Plaquenil 200 mg daily, So wilmar-Cortef 25 mg IV every 8 hours, Apresoline 10 mg IV every 4 hours as needed, ferrous sulfate 325 mg 3 times daily, Nepro Shake 237 mg twice daily, Tums 500 mg 3 times daily, Rocaltrol 0.5 mcg every 48 hours, Lipitor 40 mg at bedtime, aspirin 162 mg daily, Norvasc 10 mg daily, and Tylenol 500 mg every 4 hours as needed. Family History: Heart disease and kidney disease in mother. Social History: She denies IV drugs, cocaine, marijuana, alcohol, or tobacco use. She lives with he r in a single-family home. She has no children. Review of Systems: She mentions headache, nausea, vomiting, light sound sensitivity, arthralgias. No rash or psychiatri c issues despite the possibility of a cerebritis or encephalitis. No stiff neck. No focal weakness in her face, arm, or leg. Physical Examination: Vital Signs: Blood pressure 134/79, pulse of 82-97, respiratory rate 14 to 18, temperature 98.0, oxy gen saturation 100% on room air. General: Ms. Riuz is resting in bed. She in on her iPad. She is in no acute distress. HEENT: She is normocephalic, atraumatic. Her sclerae are anicteric. Oropharynx is moist and pink. Neck: Supple. Chest: Clear. Heart: Regular. Extremities: Show no edema, cyanosis, or clubbing. Neurological: She is alert and oriented to situation, place, and person. She follows commands appro priately. She has no expressive or receptive aphasias. Cranial nerves 2 through 12 are intact by ex am. Motor examination; she has full strength in the upper and lower extremities with no weakness pro ximally or distally. Coordination intact in upper and lower extremities. Gait is intact. She was a mbulated with physical therapist. Laboratory Studies: Complete blood count with differential showed white blood cell count 7.3, hemogl obin 10.2, platelets 77. ESR of 78. INR 0.97. Chemistries show potassium 3.9, sodium 141, chloride 108, carbon dioxide 28, BUN 41, creatinine 4.85, total bilirubin 1.7, AST low at 13, ALT less than 6 . C-reactive protein elevated at 6.92, albumin low at 2.9, HDL cholesterol elevated at 85, LDL rachell sterol of 10, total cholesterol 113, triglycerides 88. Vitamin D level is low at 11. Parathyroid ho rmone level very elevated at 640. She has a positive MIKHAIL with MIKHAIL titer greater than 1280. She has positive double-stranded DNA of 10 and complement C3 is 38, complement C4 is low and C4 low at 5. HI V 1 and 2 antibody fourth generation is re-active, hepatitis B surface antibody is less than 5. Her COVID test is negative. Assessment: Ms. 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 She has localization -related seizures. Also, she appears to be HIV positive. She is COVID-19 negative. She has hyperte nsion, end-stage renal disease, on hemodialysis. Plan: Continue Keppra 500 mg twice daily. Next, continue with steroid treatment for her lupus exace rbation with elevated CRP and ESR. She will likely benefit from HIV medications. Continue aggressiv e management of hypertension. Hemodialysis will be continued as scheduled. NATASHA/[place] Voice ID: [id number] Report ID: [id number]
[2020-02-22] MEDS ORDERED: ATORVASTATIN 20 MG TAB PO SCH (21:00)
--- NOTE | 2020-02-23 00:27 | CON ---
Date of Consultation: 02/22/2020 Chief Complaint: End-stage renal disease, on dialysis History Of Present Illness: The patient recently was initiated on dialysis for severe hyperazotemia with end-stage renal disease. The patient has history of lupus nephritis and previously she was seen by [employer] in [place]. The patient is a 24-year-old female and recently was discharged from [facility] after she was diagnosed with end-stage renal disease. She has a long-term history with wilmar pus. CT scan of the brain was done when she arrived to the emergency room because of altered mental status. She developed progressively worse confusion. Hospital service physician discussed case with neurologist and he recommended to admit the patient and proceed with LP. MRI stroke protocol was do ne as well without gadolinium contrast due to the finding that the patient has end-stage renal diseas e. Review of Systems: Unobtainable. The patient is confused. She cannot provide review of systems. Past Medical History: Lupus, SLE, end-stage renal disease, recently diagnosed, started on dialysis v ia a tunneled dialysis catheter, right kidney biopsy, pericardial window, anemia. Family History: Mother with heart disease, kidney disease, and diabetes. Mother with diabetes. Social History: Never smoked. Denies alcohol. Denies drug. Physical Examination: Vital Signs: Blood pressure 180/100, respiratory rate 14, heart rate 78. Eyes: EOMI. HENT: Atraumatic. Oral mucosa moist, pink. Respiratory: Clear to auscultation bilaterally. Heart: S1, S2. No pericardial friction rub. Gastrointestinal: There is no rebound. No guarding. Musculoskeletal: No tenderness. No synovitis. Skin: Warm and dry. No skin rashes. No oozing. Laboratory Data: WBC 6.5, hemoglobin 10.4, hematocrit 31, platelet count 89. Sodium 141, potassium 4.4, BUN 38, creatinine 4.73, glucose 115, phosphorus 3. Impression And Plan: 1.Lupus and systemic lupus erythematosus. The patient developed mental status changes and Neurology conducting workup. The patient will have LP. Dialysis will be scheduled for tomorrow. 2.Anemia. Continue AIRAM. Monitor hemoglobin level. 3.Near syncope. The patient will have cardiac workup to rule out acute coronary syndrome. 4.Hypertension, accelerated, uncontrolled. Continue IV medications. 5.Renal osteodystrophy. Continue renal diet and binders. Advance p.o. intake as tolerated and spee ch therapy will assist with evaluation to rule out aspiration. EB/MODL Voice ID: [id number] Report ID: [id number]
[2020-02-23] MEDS: HYDROCORTISONE SUC 100 MG INJ IV SCH ×3 (01:01→17:00)
[2020-02-23] MEDS ORDERED: NA CHLORIDE 0.9% 1,000 ML IV SCH (05:03)
--- NOTE | 2020-02-23 05:16 | P.PN ---
Subjective Date of Service: 02/23/20 Subjective: No new changes, No C/O voiced, Improving PATIENT IS DOING WELL. CONTINUE WITH IV STEROIDS AT THIS TIME. HEMODIALYSIS PER NEPHROLOGY; PATIENT NEEDED CONTINUE WITH OUTPATIENT FOLLOW WITH HEMATOLOGY AND RHEUMATOLOGY ALONG WITH NEPHROLOGY FOR HEMODIALYSIS. PLAN FOR LP TUESDAY MORNING- WILL NEED TO GET PLATELET TRANSFUSION PRIOR TO THAT Review of Systems 10-point ROS is otherwise unremarkable Physical Examination - Vital Signs Temperature: 97.5 F Blood Pressure: 201/105 Pulse: 78 Respirations: 14 Pulse Ox (%): 100 - Physical Exam General: Alert, In no apparent distress, Oriented x3 Respiratory: Clear to auscultation bilaterally, Normal air movement Cardiovascular: Regular rate/rhythm, Normal S1 S2, No murmurs Gastrointestinal: Normal bowel sounds, Soft and benign, Non-distended, No tenderness Musculoskeletal: No clubbing, No swelling, No tenderness Neurological: Normal speech, Normal strength at 5/5 x4 extr, Normal tone, Sensation intact, Cranial nerves 3-12 intact - Studies Medications List Reviewed: Yes Assessment & Plan - Problems (Diagnosis) (1) Lupus nephritis Current Visit: Yes Status: Acute (2) ESRD (end stage renal disease) Current Visit: Yes Status: Acute (3) Altered mental status Current Visit: Yes Status: Acute (4) Near syncope Current Visit: Yes Status: Acute (5) Lupus cerebritis Current Visit: Yes Status: Acute (6) Lupus vasculitis Current Visit: Yes Status: Acute - Plan Plan: CONTINUE WITH PLAN OF CARE MENTIONED BELOW 1. Anti-inflammatory along with immunosuppressants. 2. Anti-platelet therapy and statin therapy 3. Stroke protocol MRI performed with findings suggestive of vasculitis and cerebritis 4. Discuss with Radiology regarding lumbar puncture; 5. Hemodialysis per Nephrology today 6. Resumed immunosuppressant including CellCept and Plaquenil 7. Monitor LFTs 8. Strict blood pressure control 9. GI and DVT prophylaxis Discharge Plan: Home Plan to discharge in: Greater than 2 days - Advance Directives Does patient have a Living Will: No Does patient have a Durable POA for Healthcare: No - Code Status/Comfort Care Code Status: Full Code Critical Care: No Time Spent Managing PTS Care (In Minutes): 35
[2020-02-23 06:14] LABS: Basophils % 0.2 % (0-1.3); Hematocrit 27.1 % (36.0-45.0); Lymphocytes % 17.5 % (15.3-44.8); MPV 9.4 fL (7.6-11.3)
[2020-02-23] MEDS: METOPROLOL TAR 25 MG TAB PO SCH ×2 (06:30→17:05)
[2020-02-23 06:44] LABS: Potassium 4.1 mmol/L (3.5-5.1)
[2020-02-23] MEDS: HYDROXYCHLOROQUINE 200MG TAB PO SCH (08:43)
[2020-02-23] MEDS: ASPIRIN EC 81 MG TAB PO SCH (08:43)
[2020-02-23] MEDS: AMLODIPINE 10 MG TAB PO SCH (08:44)
[2020-02-23] MEDS: PANTOPRAZOLE 40MG TABLET PO SCH (08:44)
[2020-02-23] MEDS: levETIRAcetam 500 MG TAB PO SCH ×2 (08:44→20:33)
[2020-02-23] MEDS: CALCIUM CARBONATE CHEW 500MG TAB PO SCH ×3 (08:44→20:33)
[2020-02-23] MEDS: FERROUS SULFATE 325 MG TAB PO SCH ×3 (08:45→20:33)
[2020-02-23] MEDS: MYCOPHENOLATE MOFETIL 500 MG PO SCH ×2 (08:45→21:00)
[2020-02-23] MEDS: NEPRO SHAKE 237 ML CAN PO SCH ×2 (08:45→20:33)
[2020-02-23] MEDS: VENLAFAXINE HCL 75 MG TABLET PO SCH (08:46)
[2020-02-23] MEDS: ATORVASTATIN 40 MG TAB PO SCH (20:33)
--- NOTE | 2020-02-23 23:35 | PN ---
Date of Progress Note: 02/23/2020 Chief Complaint: End-stage renal disease, on dialysis. Subjective: The patient recently was initiated on dialysis for severe hyperazotemia and end-stage re nal disease. Due to longstanding history of lupus, the patient had a renal biopsy done at [facility] at least 7 years ago and it was lupus nephritis. The patient is a 24-year-old female, who recently was discharged from hospital after she was diagnosed with end-stage renal disease and Ne urology was following patient for small blood vessel disease. On recent workup, changes are progress ing towards the cerebritis secondary to lupus. The patient was to have LP, although procedure was po stponed because of low platelet. Today, the patient is in her baseline mental status. She denies confusion. She denies headache or v ision changes. Physical Examination: Lungs: Diminished breath sounds in bases. Heart: S1, S2. Abdomen: Soft, benign. Extremities: Minimal edema. No oozing. No skin rash. Laboratory Data: Hemoglobin 9.2, WBC 5.7, platelet count 79,000. Chemistry showed sodium 144, potas sium 4.1, chloride 110, CO2 24, BUN 60, creatinine 5.46, calcium 8.9, albumin 2.9, total protein 7.2. Impression And Plan: 1.End-stage renal disease. The patient will resume dialysis today and procedure parameters is adjus ludmila in view of recent altered mental status. The patient is feeling better today. The patient will continue medication as started by neurologist with steroids and Plaquenil as well as CellCept for lup us. 2.Hypertension. Blood pressure is in acceptable control. Monitor blood pressure during dialysis. Adjust ultrafiltration according to blood pressure and titrate ultrafiltration down to prevent intrad ialytic hypotension. 3.Anemia, multifactorial. Hemoglobin is 9.2. Continue AIRAM for anemia due to chronic kidney. 4.Screen showed human immunodeficiency virus reactive test. The patient will be evaluated by Infect ious Disease. JAZIEL/MODL Voice ID: [id number] Report ID: [id number]
[2020-02-24] MEDS: HYDROCORTISONE SUC 100 MG INJ IV SCH (00:43)
--- NOTE | 2020-02-24 05:24 | P.PN ---
Subjective Date of Service: 02/24/20 PATIENT WILL CONTINUE WITH IV STEROIDS AT THIS TIME. SOLU-MEDROL 1 G IVPB DAILY X3 DAYS FOR MANAGEMENT OF NEUROPSYCHIATRIC SLE-VASCULITIS AND CEREBRITIS. WILL TYPE AND SCREEN FOR PLATELET TRANSFUSION TUESDAY MORNING PRIOR TO LUMBAR PUNCTURE. WILL DISCUSS WITH NEPHROLOGY REGARDING GETTING HEMODIALYSIS ON TUESDAY AFTER PLATELET TRANSFUSION. OUTPATIENT FOLLOW WITH HEMATOLOGY AND NEPHROLOGY. Physical Examination - Vital Signs Temperature: 97.5 F Blood Pressure: 201/105 Pulse: 78 Respirations: 14 Pulse Ox (%): 100 - Studies Medications List Reviewed: Yes Assessment & Plan - Problems (Diagnosis) (1) Lupus nephritis Current Visit: Yes Status: Acute (2) ESRD (end stage renal disease) Current Visit: Yes Status: Acute (3) Altered mental status Current Visit: Yes Status: Acute (4) Near syncope Current Visit: Yes Status: Acute (5) Lupus cerebritis Current Visit: Yes Status: Acute (6) Lupus vasculitis Current Visit: Yes Status: Acute - Plan Plan: 1. Anti-inflammatory along with immunosuppressants. IV [id number] 1 g IVPB x 3 days 2. Anti-platelet therapy and statin therapy 3. Stroke protocol MRI performed with findings suggestive of vasculitis and cerebritis 4. Discuss with Radiology regarding lumbar puncture; 5. Hemodialysis per Nephrology 6. Resume immunosuppressant including CellCept and Plaquenil 7. Monitor LFTs 8. Strict blood pressure control 9. GI and DVT prophylaxis - Advance Directives Does patient have a Living Will: No Does patient have a Durable POA for Healthcare: No - Code Status/Comfort Care Code Status: Full Code
[2020-02-24] MEDS: CALCITROL 0.25 MCG CAP PO SCH (06:30)
[2020-02-24] MEDS: METOPROLOL TAR 25 MG TAB PO SCH ×2 (06:30→17:10)
[2020-02-24] MEDS: CALCIUM CARBONATE CHEW 500MG TAB PO SCH ×3 (08:03→21:36)
[2020-02-24] MEDS: VENLAFAXINE HCL 75 MG TABLET PO SCH (08:03)
[2020-02-24] MEDS: ASPIRIN EC 81 MG TAB PO SCH (08:04)
[2020-02-24] MEDS: levETIRAcetam 500 MG TAB PO SCH ×2 (08:04→21:36)
[2020-02-24] MEDS: AMLODIPINE 10 MG TAB PO SCH (08:04)
[2020-02-24] MEDS: ACETAMINOPHEN 500 MG TAB PO PRN (08:04)
[2020-02-24] MEDS: PANTOPRAZOLE 40MG TABLET PO SCH (08:04)
[2020-02-24] MEDS: FERROUS SULFATE 325 MG TAB PO SCH ×3 (08:04→21:36)
[2020-02-24] MEDS: HYDROXYCHLOROQUINE 200MG TAB PO SCH (08:04)
[2020-02-24] MEDS: NEPRO SHAKE 237 ML CAN PO SCH ×2 (09:00→21:00)
[2020-02-24] MEDS: METHYLPRED NA SUC 1,000 MG in NA CHLORIDE 0.9% 100 ML IV SCH (09:54)
[2020-02-24] MEDS: MYCOPHENOLATE MOFETIL 500 MG PO SCH ×2 (10:38→21:37)
[2020-02-24 12:02] LABS: Absolute Lymphocytes (CBC) 0.5 K/uL (0.7-4.9); Basophils % 0.1 % (0-1.3); Hematocrit 29.9 % (36.0-45.0); Lymphocytes % 8.2 % (15.3-44.8); MPV 9.2 fL (7.6-11.3); RBC Red Blood Cell Count 2.91 M/uL (3.86-4.86)
[2020-02-24 12:09] LABS: Potassium 3.5 mmol/L (3.5-5.1)
[2020-02-24] MEDS ORDERED: POTASSIUM CL SA 10 MEQ TAB PO ONE (14:00)
--- NOTE | 2020-02-24 18:16 | P.PN ---
Date of Service: 02/24/20 HIV 4TH GENERATION TEST WAS REACTIVE; HOWEVER, ALL ANTIBODY TESTING AND HIV RNA TEST WERE NEGATIVE; PATIENT DOES NOT HAVE HIV. ID CONSULTED; AWAITING THEIR INPUT WELL
[2020-02-24] MEDS: ATORVASTATIN 40 MG TAB PO SCH (21:36)
--- NOTE | 2020-02-25 01:37 | PN ---
Date of Progress Note: 02/24/2020 Chief Complaint: End-stage renal disease, on dialysis. Subjective: Patient received dialysis yesterday. Patient was diagnosed with lupus cerebritis. She is on Solu-Medrol with dialysis and she was evaluated by Neurology group. Patient is awaiting LP. Patient is to have platelet transfusion before LP. Dialysis will be schedul ed tomorrow. Patient presented to the hospital with baseline mental status changes and she denies confusion. She is feeling better. Review of Systems: Denies PND, orthopnea. Physical Examination: Lungs: Diminished breath sounds at bases. Heart: S1, S2. Abdomen: Soft, benign. Extremities: Minimal edema. Laboratory Data: Hemoglobin 9.2, platelet count 79,000. Sodium 144, potassium 4.1, BUN is 60, creat inine 5.46. Impression And Plan: 1.End-stage renal disease. Patient will have next dialysis tomorrow. Patient is still awaiting for further workup for lupus cerebritis. Patient will continue CellCept, steroids, and Plaquenil. 2.Hypertension. Blood pressure is in acceptable control. Monitor blood pressure. Advance ultrafil tration according to blood pressure. 3.Anemia, multifactorial. Hemoglobin is 9.2. Continue AIRAM. 4.Screen showed human immunodeficiency virus, was reactive. Patient will be evaluated by Infectious Disease. JAZIEL/[place] Voice ID: [id number] Report ID: [id number]
[2020-02-25 04:33] VITALS: O2SAT 100
[2020-02-25 04:53] VITALS: BMI 27.0
[2020-02-25] MEDS: METOPROLOL TAR 25 MG TAB PO SCH ×2 (05:09→17:23)
--- NOTE | 2020-02-25 05:34 | P.PN ---
Subjective Date of Service: 02/25/20 Patient continues to do well with no new complaints. Platelet transfusion today; LP afterwards, then HD; after last dose of steroids possible DC home in the AM Review of Systems 10-point ROS is otherwise unremarkable Physical Examination - Vital Signs Temperature: 97.5 F Blood Pressure: 140/91 Pulse: 91 Respirations: 18 Pulse Ox (%): 100 - Physical Exam General: Alert, In no apparent distress, Oriented x3 Respiratory: Clear to auscultation bilaterally, Normal air movement Cardiovascular: Regular rate/rhythm, Normal S1 S2, No murmurs Gastrointestinal: Normal bowel sounds, Soft and benign, Non-distended, No tenderness Musculoskeletal: No clubbing, No swelling, No tenderness Neurological: Normal tone, Sensation intact, Cranial nerves 3-12 intact Lymphatics: No axilla or inguinal lymphadenopathy - Studies Medications List Reviewed: Yes Assessment & Plan - Problems (Diagnosis) (1) Lupus nephritis Current Visit: Yes Status: Acute (2) ESRD (end stage renal disease) Current Visit: Yes Status: Acute (3) Altered mental status Current Visit: Yes Status: Acute (4) Near syncope Current Visit: Yes Status: Acute (5) Lupus cerebritis Current Visit: Yes Status: Acute (6) Lupus vasculitis Current Visit: Yes Status: Acute - Plan Plan: CONTINUE WITH PLAN OF CARE MENTIONED BELOW 1. Anti-inflammatory along with immunosuppressants. Last dose of pulsed steroids in the AM 2. Anti-platelet therapy and statin therapy 3. Stroke protocol MRI performed with findings suggestive of vasculitis and cerebritis; LP today after platelet transfusion 4. Discussed with Radiology regarding lumbar puncture; to be performed today 5. Hemodialysis per Nephrology today 6. Resumed immunosuppressant including CellCept and Plaquenil 7. Monitor LFTs 8. Strict blood pressure control 9. GI and DVT prophylaxis Discharge Plan: Home Plan to discharge in: 24 Hours - Advance Directives Does patient have a Living Will: No Does patient have a Durable POA for Healthcare: No - Code Status/Comfort Care Code Status: Full Code Critical Care: No Time Spent Managing PTS Care (In Minutes): 35
[2020-02-25] MEDS ORDERED: NA CHLORIDE 0.9% 250 ML ONE (06:06)
[2020-02-25 06:37] LABS: Magnesium 1.9 mg/dL (1.8-2.4); Phosphorus 3.2 mg/dL (2.5-4.9)
[2020-02-25] MEDS ORDERED: FUROSEMIDE 40 MG/4 ML VIAL IV ONE (08:00)
[2020-02-25 08:12] LABS: Absolute Lymphocytes (CBC) 0.6 K/uL (0.7-4.9); Basophils % 0.1 % (0-1.3); Hematocrit 31.1 % (36.0-45.0); Lymphocytes % 6.4 % (15.3-44.8); MPV 9.1 fL (7.6-11.3); RBC Red Blood Cell Count 3.09 M/uL (3.86-4.86)
--- NOTE | 2020-02-25 08:48 | P.CNS ---
Date of Consult: 02/25/20 Subjective: Patient is a 24 year old female who was recently discharged from the hospital after being diagnosed with Lupus nephritis. Patient has had lupus since she was 14 years old. Patient presented with some confusion, MRI showed vasculitis and cerebritis. Patient to have lumbar puncture today. Patients HIV 4th generation test was reactive, which I was consulted for. Past medical/surgical history: -: Lupus -: Acute renal failure/ ESRD/dialysis pt -: Congestive heart failure status post pericardial window in 2007 -: Anemia -: Right kidney biopsy -: Pericardial window - Family History Mother Medical History: Heart disease, Kidney disease Aunt Medical History: Diabetes Grandmother Medical History: Diabetes - Social History Smoking Status: Never smoker Alcohol use: No CD- Drugs: No Caffeine use: No Place of Residence: Home Allergies Penicillins Allergy (Verified 02/22/20 04:41) Hives/Rash Active Medications Acetaminophen (Tylenol -Extra Strength) 500 mg PO Q4HP PRN PRN Reason: pain/fever Stop: 03/23/20 02:17 Last Admin: 02/24/20 08:04 Dose: 500 mg Documented by: Amlodipine Besylate (Norvasc) 10 mg PO DAILY KATY Stop: 03/23/20 06:01 Last Admin: 02/24/20 08:04 Dose: 10 mg Documented by: Aspirin (Aspirin Ec) 162 mg PO DAILY KATY Stop: 03/23/20 09:01 Last Admin: 02/24/20 08:04 Dose: 162 mg Documented by: Atorvastatin Calcium (Lipitor) 40 mg PO BEDTIME KATY Stop: 03/24/20 21:01 Last Admin: 02/24/20 21:36 Dose: 40 mg Documented by: Calcitriol (Rocaltrol) 0.5 mcg PO Q48H KATY Stop: 03/23/20 06:01 Last Admin: 02/24/20 06:30 Dose: 0.5 mcg Documented by: Calcium Carbonate/Glycine (Tums Regular) 500 mg PO TID KATY Stop: 03/23/20 09:01 Last Admin: 02/24/20 21:36 Dose: 500 mg Documented by: Enteral Nutritional Formula (Nepro Shake) 237 ml PO BID KATY Stop: 03/23/20 09:01 Last Admin: 02/24/20 21:00 Dose: Not Given Documented by: Ferrous Sulfate (Feosol) 325 mg PO TID [facility] Stop: 03/23/20 09:01 Last Admin: 02/24/20 21:36 Dose: 325 mg Documented by: Heparin Sodium (Porcine) (Heparin 1,000 Units/Ml) 6,000 unit IV EVERY HD PRN PRN Reason: HD Last Admin: 02/23/20 17:38 Dose: 6,000 unit Documented by: Home Med (Mycophenolate Mofetil [Cellcept]) 500 mg PO BID [facility] Stop: 03/23/20 09:01 Last Admin: 02/24/20 21:37 Dose: 500 mg Documented by: Hydralazine HCl (Apresoline) 10 mg IV Q4HP PRN PRN Reason: Titrate to SBP (MUST DEFINE) Stop: 03/23/20 08:52 Last Admin: 02/22/20 09:42 Dose: 10 mg Documented by: Hydroxychloroquine Sulfate (Plaquenil) 200 mg PO DAILY [facility] Stop: 03/23/20 09:01 Last Admin: 02/24/20 08:04 Dose: 200 mg Documented by: Methylprednisolone Sodium Succinate 1,000 mg/ Sodium Chloride 100 mls @ 50 mls/hr IV DAILY [facility] Stop: 02/26/20 10:59 Last Admin: 02/24/20 09:54 Dose: 100 mls Documented by: Levetiracetam (Keppra Tab) 500 mg PO BID [facility] Stop: 03/23/20 09:01 Last Admin: 02/24/20 21:36 Dose: 500 mg Documented by: Loratadine (Claritin) 10 mg PO DAILY PRN PRN Reason: ALLERGIES Stop: 03/23/20 05:36 Metoprolol Tartrate (Lopressor) 25 mg PO BID 6AM 6PM [facility] Stop: 03/23/20 06:01 Last Admin: 02/25/20 05:09 Dose: 25 mg Documented by: Ondansetron HCl (Zofran) 4 mg IV Q6HP PRN PRN Reason: NAUSEA / VOMITING Stop: 03/23/20 02:17 Pantoprazole Sodium (Protonix Tab) 40 mg PO DAILY [facility]; Protocol Stop: 03/23/20 09:01 Last Admin: 02/24/20 08:04 Dose: 40 mg Documented by: Sodium Chloride (Normal Saline Flush) 10 ml IV BID [facility] Stop: 03/23/20 09:01 Last Admin: 02/24/20 21:37 Dose: 10 ml Documented by: Venlafaxine HCl (Effexor) 75 mg PO DAILY KATY Stop: 03/23/20 09:01 Last Admin: 02/24/20 08:03 Dose: Not Given Documented by: ROS: CV: Denies chest pain RESP: Denies shortness of breath and cough : Denies dysuria GI: Denies nausea and diarrhea Neuro: reports headache Objective: Temp Pulse Resp BP Pulse Ox 97 F 80 18 169/100 H 100 02/25/20 08:00 02/25/20 08:00 02/25/20 08:00 02/25/20 08:00 02/25/20 08:00 Labs: Na 141, K 4.0, BUN 56, Creat 5.14, Albumin 2.9, WBC 9.9, Hgb 10.6, Hct 31.1, Plt 137 Brain MRI 02/21: EXAM DESCRIPTION: MRI - MRA Head Wo Cont - 02/22/2020 12:48 pm CLINICAL HISTORY: Cerebritis/arteritis, headache COMPARISON: MRI brain same date TECHNIQUE: Axial and coronal 3D [id number] image acquisition was performed. 3D rotational images were generated with source and reconstruction images reviewed. Horizontal and vertical axis rotational views generated using MIP protocol. FINDINGS: Exam suffers from motion degradation but is still considered to be diagnostic. Small distal left vertebral artery is present. Basilar artery shows no focal stenosis or abnormal contour. The left posterior cerebral artery P1 segment is very small and slightly irregular. The patient does appear to have a large left posterior communicating artery which could explain this finding. Both posterior cerebral arteries show slightly irregular contour. No focal stenoses of the distal posterior cerebral artery distributions. Cavernous portions of each internal carotid artery show slightly irregular contour. The right middle cerebral artery M2 and M3 branches show slight irregular contour changes. No focal stenosis or major branch occlusion on the right. Both anterior cerebral arteries show irregular contour of each A1 segment. This is possibly due to the motion affects. Long segment significant narrowing of the left middle cerebral artery M2 and proximal M3 branches noted. IMPRESSION: Bilateral middle cerebral artery abnormalities of irregular contour and left middle cerebral artery significant long segment stenoses. Patient has irregular narrowing of the bilateral anterior cerebral artery A1 segments and left posterior cerebral P1 segments. This could be due to vascular disease or possibly the affects of motion for the anterior cerebral findings and anatomic variant for the left posterior cerebral finding. 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 ROS: General: Awake, alert, oriented, sitting upright in bed eating breakfast CV: S1,S2 RESP: Good breath sounds ABD: Nontender, bowel sounds present Assessment and plan: ESRD, receiving HD AMS resolved Thrombocytopenia/Anemia of chronic disease/Renal failure Protein calorie malnourished HIV antibody 4th generation test reactive, Antibody test and HIV RNA testing all negative From ID standpoint, no further testing or treatment needs to be done Will continue to monitor Thank you for consult Patient discussed with Dr. Garnica
[2020-02-25] MEDS: VENLAFAXINE HCL 75 MG TABLET PO SCH (09:00)
[2020-02-25] MEDS: ASPIRIN EC 81 MG TAB PO SCH (09:00)
[2020-02-25] MEDS: METHYLPRED NA SUC 1,000 MG in NA CHLORIDE 0.9% 100 ML IV SCH (09:00)
[2020-02-25] MEDS: NEPRO SHAKE 237 ML CAN PO SCH ×2 (09:00→20:25)
[2020-02-25] MEDS: ACETAMINOPHEN 500 MG TAB PO PRN (09:06)
[2020-02-25] MEDS: AMLODIPINE 10 MG TAB PO SCH (09:07)
[2020-02-25] MEDS: HYDROXYCHLOROQUINE 200MG TAB PO SCH (09:07)
[2020-02-25] MEDS: CALCIUM CARBONATE CHEW 500MG TAB PO SCH ×3 (09:07→20:24)
[2020-02-25] MEDS: PANTOPRAZOLE 40MG TABLET PO SCH (09:07)
[2020-02-25] MEDS: FERROUS SULFATE 325 MG TAB PO SCH ×3 (09:07→20:24)
[2020-02-25] MEDS: MYCOPHENOLATE MOFETIL 500 MG PO SCH ×2 (09:08→20:25)
[2020-02-25] MEDS: levETIRAcetam 500 MG TAB PO SCH ×2 (09:08→20:24)
[2020-02-25 10:20] LABS: Anisocytosis 1+; Blood Morphology Comment NOTED (NOT SEEN); Platelet Estimate DECR; Urine White Blood Cell Casts OK
[2020-02-25] MEDS ORDERED: METHYLPRED NA SUC 1,000 MG in NA CHLORIDE 0.9% 100 ML IV ONE (13:00)
[2020-02-25 13:17] LABS: CSF Glucose 70 mg/dL (40-70)
[2020-02-25 13:50] LABS: Fluid Total Volume 7.5 ml
[2020-02-25 13:56] LABS: Body Fluid Source CSF; Color of fluid Colorless (COLORLESS)
[2020-02-25 13:57] LABS: Appearance CLEAR (CLEAR); Body Fluid WBC 1 /mm^3
[2020-02-25 13:59] LABS: Body Fluid Source CSF; Color of fluid Colorless (COLORLESS)
[2020-02-25 14:00] LABS: Appearance CLEAR (CLEAR); Body Fluid WBC 1 /mm^3
[2020-02-25] MEDS: ATORVASTATIN 40 MG TAB PO SCH (20:24)
--- NOTE | 2020-02-25 22:46 | PN ---
Date of Progress Note: 02/25/2020 Subjective: Ms. Ruiz reports no headaches, dizziness, blurred vision, loss of vision, weakness or n umbness in her face, arm, and leg areas. She is doing well. She has no new complaints. Objective: Vital Signs: Blood pressure 132/85, pulse 91, respiratory rate 16, temperature 97, oxyge n saturation 100% on room air. General: Ms. Ruiz is resting comfortably in bed, on iPad. Neurologic: She has no focal cranial nerve, motor, coordination, sensory, reflex, or gait deficits. Laboratory Studies: Complete blood count with differential shows white blood cell count 5.9, hemoglo bin 10.6, and her platelets have improved 137 after platelet transfusion in preparation for lumbar pu ncture. Her INR was 0.97 on 02/21. Chemistries today show potassium 4.0, chloride 109, sodium 141, creatinine is 5.14 and she is on hemodialysis, glucose up to 145, calcium 8.7, phosphorus 3.2, magnes ium 1.9. She had lumbar puncture done today. Glucose was 72, protein 42. It was clear, non-xanthoc hromic. There are pending studies. She has a pending hepatitis panel, also CSF electrophoresis is p ending, and she is already negative for COVID-19. Assessment: Ms. Ruiz is a 24-year-old patient with end-stage renal disease, on hemodialysis, lupus nephritis, and likely also cerebritis with resolved multiple symptoms. She has possible seizures and lumbar puncture so far is unremarkable. No followup studies. Plan: She is on Lipitor 40 mg at bedtime, aspirin 162 mg daily, Norvasc 10 mg daily, also Keppra 500 mg twice daily, and she is receiving methylprednisolone 1000 mg daily for 3 days and Plaquenil 200 mg daily. She will be follow ed while in hospital. NATASHA/[place] Voice ID: [id number] Report ID: [id number]
--- NOTE | 2020-02-26 01:49 | PN ---
Date of Progress Note: 02/25/2020 Chief Complaint: End-stage renal disease, on dialysis. Subjective: The patient has longstanding history of lupus. She is admitted to the hospital because of deterioration of mental status and she is undergoing LP today. She received platelet transfusion and dialysis was done today. The patient is on IV Solu-Medrol, CellCept, and Plaquenil. The patient is started on dialysis for end-stage renal disease. Review of Systems: The patient is feeling better. Denies headache or vision changes. Physical Examination: Lungs: Diminished at bases. Heart: S1, S2. Abdomen: Soft, benign. Extremities: Minimal edema. Laboratory Work: Hemoglobin 10.6, WBC 9.9, platelet count 137,000. Chemistry shows sodium 141, pota ssium 4, chloride 109, CO2 27, BUN 36, creatinine 5.43, calcium 8.7, glucose 128. Impression And Plan: 1.End-stage renal disease. Dialysis was done today. Ultrafiltration was obtained to control volemi a. 2.Hypertension. Continue blood pressure medication. 3.Lupus cerebritis. Continue treatment. The patient was seen by Neurology. 4.The patient will continue AIRAM for anemia due to chronic kidney. EB/MODL Voice ID: [id number] Report ID: [id number]
[2020-02-26] MEDS: CALCITROL 0.25 MCG CAP PO SCH (05:44)
[2020-02-26] MEDS: METOPROLOL TAR 25 MG TAB PO SCH (05:44)
[2020-02-26] MEDS: MYCOPHENOLATE MOFETIL 500 MG PO SCH (08:29)
[2020-02-26] MEDS: CALCIUM CARBONATE CHEW 500MG TAB PO SCH (08:30)
[2020-02-26] MEDS: PANTOPRAZOLE 40MG TABLET PO SCH (08:30)
[2020-02-26] MEDS: VENLAFAXINE HCL 75 MG TABLET PO SCH (08:30)
[2020-02-26] MEDS: HYDROXYCHLOROQUINE 200MG TAB PO SCH (08:30)
[2020-02-26] MEDS: FERROUS SULFATE 325 MG TAB PO SCH (08:31)
[2020-02-26] MEDS: AMLODIPINE 10 MG TAB PO SCH (08:31)
[2020-02-26] MEDS: levETIRAcetam 500 MG TAB PO SCH (08:31)
[2020-02-26] MEDS: ASPIRIN EC 81 MG TAB PO SCH (08:32)
[2020-02-26] MEDS: ACETAMINOPHEN 500 MG TAB PO PRN (08:32)
[2020-02-26] MEDS: NEPRO SHAKE 237 ML CAN PO SCH (08:33)
[2020-02-26] MEDS: METHYLPRED NA SUC 1,000 MG in NA CHLORIDE 0.9% 100 ML IV SCH (08:33)
[2020-02-26 08:34] VITALS: BP 163/99
[2020-02-26 09:15] VITALS: TEMP 97.7
--- NOTE | 2020-02-26 09:32 | P.PN ---
Date of Service: 02/26/20 Subjective: Patient is a 24 year old female who was recently discharged from the hospital after being diagnosed with Lupus nephritis. Patient has had lupus since she was 14 years old. Patient presented with some confusion, MRI showed vasculitis and cerebritis. Patient to have lumbar puncture today. Patients HIV 4th generation test was reactive, which I was consulted for. Patient examined at bedside. Denies nausea, diarrhea, dysuria. Reports dialysis is going well and has been ambulatory. Objective: Temp Pulse Resp BP Pulse Ox 97.7 F 87 18 163/99 H 100 02/26/20 08:00 02/26/20 08:31 02/26/20 08:00 02/26/20 08:31 02/26/20 08:00 Labs: Na 141, K 4.0, BUN 56, Creat 5.14, Albumin 2.9, WBC 9.9, Hgb 10.6, Hct 31.1, Plt 137 Brain MRI 02/21: EXAM DESCRIPTION: MRI - MRA Head Wo Cont - 02/22/2020 12:48 pm CLINICAL HISTORY: Cerebritis/arteritis, headache COMPARISON: MRI brain same date TECHNIQUE: Axial and coronal 3D [id number] image acquisition was performed. 3D rotational images were generated with source and reconstruction images reviewed. Horizontal and vertical axis rotational views generated using MIP protocol. FINDINGS: Exam suffers from motion degradation but is still considered to be diagnostic. Small distal left vertebral artery is present. Basilar artery shows no focal stenosis or abnormal contour. The left posterior cerebral artery P1 segment is very small and slightly irregular. The patient does appear to have a large left posterior communicating artery which could explain this finding. Both posterior cerebral arteries show slightly irregular contour. No focal stenoses of the distal posterior cerebral artery distributions. Cavernous portions of each internal carotid artery show slightly irregular contour. The right middle cerebral artery M2 and M3 branches show slight irregular contour changes. No focal stenosis or major branch occlusion on the right. Both anterior cerebral arteries show irregular contour of each A1 segment. This is possibly due to the motion affects. Long segment significant narrowing of the left middle cerebral artery M2 and proximal M3 branches noted. IMPRESSION: Bilateral middle cerebral artery abnormalities of irregular contour and left middle cerebral artery significant long segment stenoses. Patient has irregular narrowing of the bilateral anterior cerebral artery A1 segments and left posterior cerebral P1 segments. This could be due to vascular disease or possibly the affects of motion for the anterior cerebral findings and anatomic variant for the left posterior cerebral finding. 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 ROS: General: Awake, alert, oriented, sitting upright in bed CV: S1,S2 RESP: Good breath sounds ABD: Nontender, bowel sounds present Assessment and plan: ESRD, receiving HD AMS resolved Thrombocytopenia/Anemia of chronic disease/Renal failure Protein calorie malnourished HIV antibody 4th generation test reactive, Antibody test and HIV RNA testing all negative, From ID standpoint, no further testing or treatment needs to be done Lupus nephritis, continue current treatment Will continue to monitor Patient discussed with Dr. Garnica
--- NOTE | 2020-02-26 13:24 | P.DS ---
Discharge Date: 02/26/20 Disposition: ROUTINE DISCHARGE Discharge Condition: GOOD Reason for Admission: ALTERED MENTAL STATUS Consultations: Pediatric Physical Therapy Assistant Neurologist Infectious disease - Problems (1) Lupus nephritis Status: Acute (2) ESRD (end stage renal disease) Status: Acute (3) Altered mental status Status: Acute (4) Near syncope Status: Acute (5) Lupus cerebritis Status: Acute (6) Lupus vasculitis Status: Acute Brief History of Present Illness: Patient is a 24-year-old female who was recently discharged from the hospital after being diagnosed with lupus nephritis. Patient also has some abnormalities with CT of the brain. Patient had a repeat CT scan done tonight which showed progression of neurologic inflammation or ischemia. The emergency room spoke with neurologist who recommended admission for further evaluation. Fluoroscopic LP will be done this morning. MRI stroke protocol as well. Otherwise, patient appears to be doing much better. She was a little confused on arrival to the ER but her symptoms have resolved. She will be admitted to the hospital for further workup. Hospital Course: Patient had imaging studies which revealed vasculitis and possibly cerebritis. Patient was given a pulse dose steroids. Lumbar puncture was also obtained. No significant amount of protein. Neurologic status has improved and back to baseline. At this time, patient is stable for discharge. Patient will continue tapering dose of steroids and follow up with rheumatology this week. She says she has an appointment with the local in home sales consultant. Also follow with our neurologist in 2 weeks and continue hemodialysis with nephrology. At this time, patient is stable for discharge home with outpatient follow up. Vital Signs/Physical Exam: Temp Pulse Resp BP Pulse Ox 97.7 F 87 18 163/99 H 100 02/26/20 08:00 02/26/20 08:31 02/26/20 08:00 02/26/20 08:31 02/26/20 08:00 General: Alert, In no apparent distress, Oriented x3 Laboratory Data at Discharge: WBC 9.9 K/uL (4.3-10.9) D 02/25/20 07:57 Hgb 10.6 g/dL (12.0-15.0) L 02/25/20 07:57 Hct 31.1 % (36.0-45.0) L 02/25/20 07:57 Plt Count 137 K/uL (152-406) L D 02/25/20 07:57 PT 11.5 SECONDS (9.5-12.5) 02/22/20 05:04 INR 0.97 02/22/20 05:04 APTT 28.4 SECONDS (24.3-36.9) 02/22/20 05:04 Sodium 141 mmol/L (136-145) 02/25/20 05:12 Sodium Cancelled 02/25/20 05:12 Potassium 4.0 mmol/L (3.5-5.1) 02/25/20 05:12 Potassium Cancelled 02/25/20 05:12 BUN 56 mg/dL (7-18) H 02/25/20 05:12 BUN Cancelled 02/25/20 05:12 Creatinine 5.14 mg/dL (0.55-1.3) H* 02/25/20 05:12 Creatinine Cancelled 02/25/20 05:12 Glucose 128 mg/dL (74-106) H 02/25/20 05:12 Glucose Cancelled 02/25/20 05:12 Phosphorus 3.2 mg/dL (2.5-4.9) 02/25/20 05:12 Magnesium 1.9 mg/dL (1.8-2.4) 02/25/20 05:12 Total Bilirubin 1.7 mg/dL (0.2-1.0) H 02/22/20 05:04 AST 13 U/L (15-37) L 02/22/20 05:04 ALT < 6 U/L (12-78) L 02/22/20 05:04 Alkaline Phosphatase 61 U/L (45-117) 02/22/20 05:04 Triglycerides 88 mg/dL (<150) 02/22/20 05:04 Cholesterol 113 mg/dL (<200) 02/22/20 05:04 HDL Cholesterol 85 mg/dL (40-60) H 02/22/20 05:04 Cholesterol/HDL Ratio 1.33 02/22/20 05:04 Home Medications: Calcitrol [Rocaltrol*] 0.5 mcg PO Q48H 30 Days #15 cap 02/20/20 Ferrous Sulfate [Ferrous Sulfate*] 325 mg PO TID 30 Days #90 tab 02/20/20 Hydroxychloroquine [Plaquenil*] 200 mg PO DAILY 30 Days #30 tab 02/20/20 Levetiracetam [Keppra] 500 mg PO BID 30 Days #60 tablet 02/20/20 Loratadine [Claritin*] 10 mg PO DAILY PRN 30 Days #30 tab 02/20/20 Mycophenolate Mofetil [Cellcept] 500 mg PO BID 30 Days #60 02/20/20 Nepro Shake [Nepro*] 237 ml PO BID 30 Days #60 can 02/20/20 Pantoprazole Sodium [Protonix] 40 mg PO DAILY 30 Days #30 tablet. 02/20/20 Venlafaxine HCl [Effexor*] 75 mg PO DAILY 30 Days #30 02/20/20 predniSONE [Deltasone*] 40 mg PO DAILY 30 Days #30 tab 02/20/20 Calcium Carbonate [Tums Regular*] 500 mg PO TID 02/22/20 Aspirin [Aspirin EC 81 MG] 81 mg PO DAILY #30 tablet. 02/26/20 Atorvastatin Calcium [Lipitor] 40 mg PO BEDTIME #30 tab 02/26/20 predniSONE [Prednisone*] 20 mg PO TID #30 tab 02/26/20 New Medications: Aspirin [Aspirin EC 81 MG] 81 mg PO DAILY #30 tablet. Atorvastatin Calcium [Lipitor] 40 mg PO BEDTIME #30 tab predniSONE [Prednisone*] 20 mg PO TID #30 tab Patient Discharge Instructions: OK TO DC IV AND DC HOME. FOLLOW-UP WITH PRIMARY CARE PROVIDER IN 1-2 WEEKS. FOLLOW-UP WITH NEPHROLOGY FOR HD. FOLLOW-UP WITH Neurology IN 1-2 WEEKS. FOLLOW-UP WITH RHEUMATOLOGY IN 1-2 WEEKS. RETURN TO THE ER IF SYMPTOMS WORSENS. CALL DR. PATEL AT [phone] IF ANY QUESTIONS REGARDING HOSPITAL STAY. PLEASE CALL THE FLOOR AT [phone] IF ANY MEDICATION OR NURSING QUESTIONS. Diet: Renal Activity: Fall precautions Followup: Kenny Bray MD [ACTIVE - CAN ADMIT] - Mir Dhaliwal MD [ASSOCIATE-ACTIVE - CAN ADMIT] - Time spent managing pt's care (in minutes): 25
--- NOTE | 2020-02-27 03:35 | PN ---
Date of Progress Note: 02/26/2020 Chief Complaint: End-stage renal disease, on dialysis. History Of Present Illness: The patient has history of long-term lupus, lupus nephritis. She underw ent kidney biopsy as a child and was found to have lupus nephritis. Currently, the patient is on IV Solu-Medrol for lupus cerebritis and she is on CellCept and Plaquenil. The patient was initiated on dialysis for end-stage renal disease, is tolerating dialysis. Review of Systems: Denies PND or orthopnea. Physical Examination: Lungs: Diminished breath sounds at bases. Heart: S1 and S2. Abdomen: Soft, benign. Extremities: Minimal edema. Laboratory Data: Sodium 141, potassium 4.0, creatinine 5.43, BUN 36, and CO2 of 27. Impression And Plan: 1.End-stage renal disease. Dialysis was done yesterday. Continue dialysis on Tuesday, Tuesday, an d Tuesday. 2.Hypertension. Continue blood pressure medication. Blood pressure is in acceptable control. 3.Lupus cerebritis, on treatment as per Neurology and primary team. 4.Anemia due to chronic kidney disease, continue AIRAM. EB/MODL Voice ID: [id number] Report ID: [id number]
[2020-02-28 04:22] LABS: HBsAG Nonreactive (Nonreactive)
== END 2020-02-26 11:30 | disposition home or self-care (01) | DRG 545 ==
LOC: ER 22:29 → 2ND 02-22 04:07
PROVIDERS: ADMIT Hospitalist; ATTEND Hospitalist
PROC: 009U3ZX Drainage of Spinal Canal, Percutaneous Approach, Diagnostic (ICD-10-PCS; 2020-02-22)
PROC: 5A1D70Z Performance of Urinary Filtration, Intermittent, Less than 6 Hours Per Day (ICD-10-PCS; 2020-02-24)
PROC: 30233R1 Transfusion of Nonautologous Platelets into Peripheral Vein, Percutaneous Approach (ICD-10-PCS; principal; 2020-02-25)
DX: M32.19 Other organ or system involvement in systemic lupus erythematosus (principal); N18.6 End stage renal disease; I12.0 Hypertensive chronic kidney disease with stage 5 chronic kidney disease or end stage renal disease; E46 Unspecified protein-calorie malnutrition; D63.1 Anemia in chronic kidney disease; D69.6 Thrombocytopenia, unspecified; N25.0 Renal osteodystrophy; M32.9 Systemic lupus erythematosus, unspecified; M32.14 Glomerular disease in systemic lupus erythematosus; R55 Syncope and collapse; Z79.52 Long term (current) use of systemic steroids; Z79.899 Other long term (current) drug therapy; Z11.59 Encounter for screening for other viral diseases; Z88.0 Allergy status to penicillin; Z99.2 Dependence on renal dialysis; Z68.26 Body mass index [BMI] 26.0-26.9, adult
CPT/HCPCS: 36415; 70450; 70544; 70551; 71045; 72100; 77003; 80048; 80053; 80061; 82271; 82945; 83735; 83986; 84100; 84157; 85025; 85610; 85652; 85730; 86140; 86592; 86704; 86706; 86803; 86850; 86870; 86900; 86901; 87070; 87340; 89050; 90935; 93880; 96372; 97161; 99285; J0360; J1644; J1720; J1940; J2550; J2930; J7030; J7050; P9035

== ENCOUNTER 2020-03-28 18:08 | Inpatient (IN) | payer SELFPAY ==
--- OUTSIDE RECORDS SUMMARY | 2020-03-28 18:10 | XMS REPORT | Continuity of Care Document ---
:1995 Author Organization [facility] t Address 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 Allergies, Adverse Reactions, Alerts Allergy Allergy Status Severity Reaction(s) Onset Inactive Treating Comm ents Source Name Type Date Date Clinician Penicill Propensi Active [facility] [place] ins ty to Breath 02-21 Methodi adverse 00:00: st reaction 00 s to drug Amoxicil Propensi Active [place] mariela-Pot ty to 03-01 Health Clavulan adverse 00:00: ate reaction 00 s to drug Penicill Propensi Active [place] ins ty to 03-01 Health adverse 00:00: reaction 00 s to drug Family History Family Member Diagnosis Comments Start Date Stop Date Source Natural father Heart failure [facility] Maternal grandfather Diabetes [facility] Maternal grandfather Heart failure [facility] Maternal grandmother Stomach cancer [facility] Natural mother Cerebral aneurysm [facility] Natural mother Heart failure [facility] Natural mother Hyperthyroidism [facility] Social History Social Habit Start Date Stop Date Quantity Comments Source Sex Assigned At [place] He alth Alcohol Comment 2018-02-21 2018-02-21 Occasionally [place] 00:00:00 00:00:00 Catholic Alcohol intake 2017-04-24 2017-04-24 Current non-drinker [facility] [employer] 00:00:00 00:00:00 of alcohol (finding) Smoking Status Start Date Stop Date Source Never smoker [facility] Medications Ordered Filled Start Stop Current Ordering Indication Dosage Frequency Signature Comments Components Source Medication Medication Date Date Medication? Clinician (SIG) Name Name hydroxychlo 2016-07 Yes 200mg QD Take 200 H arris roquine 0-08 mg by [employer] (PLAQUENIL) 18:25: mouth 200 mg 57 daily. tablet ferrous 2016-07 Yes 325mg QD Take 325 Harri s sulfate 325 0-08 mg by [facility] mg (65 mg 18:25: mouth iron) [...] Harri s (FOLVITE) 1 0-08 tablet by He lth mg tablet 00:00: mouth 00 daily. sennosides- 2016-07 Yes 1{tbl} QD Take 1 Stahl rris docusate 0-08 tablet by Health sodium 00:00: mouth (SENNA 00 daily. PLUS) 8.6-50 mg tablet hydroxychlo 2016-07 Yes 200mg QD Take 1 Jason ris roquine 0-08 tablet by [facility] (PLAQUENIL) 00:00: mouth 200 mg 00 daily. tablet omeprazole 2016-07 Yes 40mg QD Take 2 Harri s (PRILOSEC) 0-08 capsules Healt h 20 mg 00:00: by mouth delayed 00 daily. release capsule mycophenola 2016-07 Yes Systemic 1500mg Q.5D Take 3 Quispe te 0-08 lupus tablets by [facility] (CELLCEPT) 00:00: erythematos mouth 2 500 [...] Date Details Comments Source Future Scheduled 2020-04-24 INFLUENZA VACCINE Beto roman Catholic Test 00:00:00 [code = INFLUENZA VACCINE] Future Scheduled 2020-04-24 [facility]:00 Seasonal Apr to September (>/= 19 yrs) [code = IMM Influenza Seasonal Apr to September (>/= 19 yrs)] Future Scheduled 2014 Screening for [facility] thodist Test 00:00:00 malignant neoplasm of cervix (procedure) [code = 674511724] Future Scheduled 2014 Screening for Jose Enrique Palmer lt Test 00:00:00 malignant neoplasm of cervix (procedure) [code = 979670437] Encounters Start End Encounter Admission Attending Care Care Encounter Source Date/Time Date/Time Type Type Clinicians Facility Department ID 2019-10-05 2019-10-05 Emergency KEELY Jeffers [id number] 17:16:57 20:21:00 Kate Duque [id number] [place] [id number] [place] [id number] 2019-10-05 2019-10-05 Orders Doctor CHATA [id number] 00:00:00 00:00:00 Only Unassigned, ELIZABETH [id number] Story [place] [id number] 2017-06-03 2017-06-03 Outpatient [facility] [id number] [place] 00:00:00 00:00:00 Health 2017-04-26 2017-04-26 Outpatient [facility] [id number] [place] 07:37:31 07:37:31 Health 2017-04-24 2017-04-24 Outpatient [facility] [id number] [place] 07:21:26 07:21:26 Health 2017-04-23 2017-04-23 Outpatient [facility] [id number] [place] 15:25:08 15:25:08 Health 2017-04-22 2017-04-22 Outpatient [facility] [id number] [place] 10:38:27 10:38:27 Health 2017-04-21 2017-04-21 Emergency [facility] [id number] [place] 04:19:42 04:19:42 Health 2017-04-21 2017-04-21 Inpatient [facility] [id number] [place] 00:52:05 00:52:05 [facility] 2017-04-19 2017-04-19 Emergency [facility] [id number] [place] 18:41:35 18:41:35 Health Results This patient has no known results.
--- OUTSIDE RECORDS SUMMARY | 2020-03-28 18:10 | XMS REPORT | Clinical Summary ---
:1995 Author Organization [facility] Address [address] [place] [address] Care Team Providers Name Role Phone Asked, [...] Comments CERVICAL CANCER SCREENING 2014 INFLUENZA VACCINE 04/24/2020 Results Not on fileafter 03/28/2019 Insurance Payer Benefit Plan / Subscriber ID Effective Dates Phone Addre ss Type Group CVCP CVCP BCBS xxxxxxxxxxxx 2015-Present [address] [place] [address] ([place]) [address] [place] [address] [place] [id number] Advance Directives For more information, please contact: [phone] Type Date Recorded Patient Nursing Professor Explanati on Advance Directives, 06/02/2016 11:51 PM Living Will and Medical Power of News Production Supervisor Advance Directives, 06/03/2016 1:17 AM Living Will and Medical Power of News Production Supervisor
--- OUTSIDE RECORDS SUMMARY | 2020-03-28 18:10 | XMS REPORT | Clinical Summary ---
:1995 Author Organization [facility] Address [facility] [place] [address] Care Team Providers Name Role Phone Unavailable [...] 17 yrs) 04/24/2020 Results Not on fileafter 03/28/2019 Insurance Payer Benefit Plan / Subscriber ID Effective Dates Phone Addre ss Type Group [facility] SELF-PAY xxxxxxxxx 2017-Prese [phone] [id number] SELF-PAY [address]CRE[address]ED [address] [place] [address] [address] [place] (Home) ELIZABETHCAROLINE [phone] (Work) Advance Directives Code Status Date Activated Date Inactivated Comments Full Code 04/21/2017 12:28 PM 05/01/2017 8:31 PM
[2020-03-28 18:57] LABS: Absolute Lymphocytes (CBC) 1.3 K/uL (0.7-4.9); Basophils % 0.9 % (0-1.3); MPV 8.4 fL (7.6-11.3); RBC Red Blood Cell Count 1.74 M/uL (3.86-4.86)
[2020-03-28 19:12] LABS: Hematocrit 16.9 % (36.0-45.0)
[2020-03-28 19:20] LABS: ALT/SGPT 14 U/L (12-78); AST/SGOT 15 U/L (15-37); Alkaline Phosphatase 70 U/L (45-117); BUN Blood Urea Nitrogen 10 mg/dL (7-18); Bicarbonate 31 mmol/L (21-32); Bilirubin Direct 0.3 mg/dL (0-0.2); Bilirubin Total 0.8 mg/dL (0.2-1.0); Glucose Level 77 mg/dL (74-106); Magnesium 1.7 mg/dL (1.8-2.4); NT PRO-BNP 1509 pg/mL (<125); Potassium 3.1 mmol/L (3.5-5.1); Protein, Total 6.5 g/dL (6.4-8.2); Sodium Level 139 mmol/L (136-145); Troponin I < 0.02 ng/mL (0.0-0.045)
--- NOTE | 2020-03-28 20:36 | RAD REPORT ---
EXAM DESCRIPTION: Chun Single View03/28/2020 7:03 pm CLINICAL HISTORY: Lupus/anemia COMPARISON: January 2020 FINDINGS: The lungs appear clear of acute infiltrate. The heart is normal size. Central venous cath eter has its tip in the superior vena cava IMPRESSION: No acute abnormalities displayed
--- NOTE | 2020-03-28 21:05 | P.HP ---
Certification for Inpatient Patient admitted to: Observation With expected LOS: <2 Midnights Patient will require the following post-hospital care: None Practitioner: I am a practitioner with admitting privileges, knowledge of patient current condition, hospital course, and medical plan of care. Services: Services provided to patient in accordance with Admission requirements found in Title 42 Section 412.3 of the Code of Federal Regulations Patient History Date of Service: 03/28/20 Reason for admission: Anemia History of Present Illness: 24-year-old female with history of lupus nephritis, end-stage renal disease on chronic hemodialysis, hypertension, seizure disorder presents emergency department for chief complaint of abnormal lab results. Patient reports that she had labs drawn on 03/26/2020 and was calm with a critical result of a hemoglobin of 5.5 today. Patient reported to the emergency department for further evaluation and management. When patient was worked up in the emergency department she was found to have a hemoglobin of 5.6. Patient is Tuesday dialysis patient and did complete dialysis today. Transfusion was ordered for 2 units packed red blood cells in the emergency department and plan was to transfuse patient and have her discharge but patient with antibodies and would require blood from blood bank in [place]. Due to the prolonged time to obtain blood products and multiple units patient be admitted under observation for further management. When I saw the patient in the emergency department she was awake, alert, oriented x4. Patient denies any other complaints at this time but does report that she feels a little short of breath and weak. Allergies Penicillins Allergy (Verified 02/22/20 04:41) Hives/Rash Home Medications: Calcitrol [Rocaltrol*] 0.5 mcg PO Q48H 30 Days #15 cap 02/20/20 Ferrous Sulfate [Ferrous Sulfate*] 325 mg PO TID 30 Days #90 tab 02/20/20 Hydroxychloroquine [Plaquenil*] 200 mg PO DAILY 30 Days #30 tab 02/20/20 Levetiracetam [Keppra] 500 mg PO BID 30 Days #60 tablet 02/20/20 Loratadine [Claritin*] 10 mg PO DAILY PRN 30 Days #30 tab 02/20/20 Mycophenolate Mofetil [Cellcept] 500 mg PO BID 30 Days #60 02/20/20 Nepro Shake [Nepro*] 237 ml PO BID 30 Days #60 can 02/20/20 Pantoprazole Sodium [Protonix] 40 mg PO DAILY 30 Days #30 tablet. 02/20/20 Venlafaxine HCl [Effexor*] 75 mg PO DAILY 30 Days #30 02/20/20 predniSONE [Deltasone*] 40 mg PO DAILY 30 Days #30 tab 02/20/20 Calcium Carbonate [Tums Regular*] 500 mg PO TID 02/22/20 Aspirin [Aspirin EC 81 MG] 81 mg PO DAILY #30 tablet. 02/26/20 Atorvastatin Calcium [Lipitor] 40 mg PO BEDTIME #30 tab 02/26/20 predniSONE [Prednisone*] 20 mg PO TID #30 tab 02/26/20 - Past Medical/Surgical History Diabetic: No -: Lupus -: Acute renal failure/ ESRD/dialysis pt -: Congestive heart failure status post pericardial window in 2007 -: Anemia of chronic disease -: Hypertension -: Depression with anxiety -: Right kidney biopsy -: Pericardial window -: Tessio placement Psychosocial/ Personal History: . Lives at home with . No children - Family History Mother -: Heart disease, Kidney disease Aunt -: Diabetes Grandmother -: Diabetes - Social History Smoking Status: Never smoker Alcohol use: No CD- Drugs: No Caffeine use: No Place of Residence: Home Review of Systems General: Weakness Respiratory: Shortness of Breath Physical Examination - Physical Exam General: Alert, In no apparent distress HEENT: Atraumatic, PERRLA, Mucous membr. moist/pink, EOMI, Sclerae nonicteric Neck: Supple, 2+ carotid pulse no bruit, No LAD, Without JVD or thyroid abnormality Respiratory: Clear to auscultation bilaterally, Normal air movement Cardiovascular: Regular rate/rhythm, Normal S1 S2 Gastrointestinal: Normal bowel sounds, No tenderness Musculoskeletal: No tenderness Integumentary: No rashes Neurological: Normal gait, Normal speech, Normal strength at 5/5 x4 extr, Normal tone, Normal affect Urinary: Dialysis catheter - Studies Laboratory Data (last 24 hrs) 03/28/20 18:35: WBC 3.1 L, Hgb 5.5 L*, Hct 16.9 L*, Plt Count 172 03/28/20 18:35: Sodium 139, Potassium 3.1 L, BUN 10, Creatinine 2.05 H, Glucose 77, Magnesium 1.7 L, Total Bilirubin 0.8, AST 15, ALT 14, Alkaline Phosphatase 70, Troponin I < 0.02 Assessment and Plan - Plan Assessment Anemia of chronic disease End-stage renal disease on hemodialysis secondary to lupus nephritis Seizure disorder Hypertension Depression with anxiety Plan Anemia of chronic disease: Patient be transfused 2 units packed red blood cells, will administer Lasix after each unit as patient does still produces urine. Will repeat H&H approximately 2 hr after 2nd unit of blood has been transfused. Anticipate discharge tomorrow morning after completed blood transfusion. DVT prophylaxis heparin 5000 units subcutaneous twice daily. End-stage renal disease on hemodialysis secondary to lupus nephritis: Obtain and continue patient's home medications. Patient completed dialysis today. At discharge patient will continue with dialysis on Tuesday unless there is indication for more urgent dialysis. Seizure disorder: Continue Keppra Hypertension: Continue metoprolol Depression with anxiety: Continue citalopram Discharge Plan: Home Plan to discharge in: 24 Hours - Advance Directives Does patient have a Living Will: No Does patient have a Durable POA for Healthcare: No - Code Status/Comfort Care Code Status Assessed: Yes (Patient is full code) Critical Care: No Time Spent Managing Pts Care (In Minutes): 55
[2020-03-28] MEDS ORDERED: HYDROCODONE/APAP 5/325 MG TAB PO PRN (22:15)
[2020-03-28] MEDS: ATORVASTATIN 40 MG TAB PO SCH (22:15)
[2020-03-28] MEDS ORDERED: ACETAMINOPHEN 500 MG TAB PO PRN (22:15)
[2020-03-28] MEDS ORDERED: ONDANSETRON 4 MG/2 ML VIAL IV PRN (22:15)
[2020-03-28 22:48] VITALS: BMI 26.3
[2020-03-28] MEDS: HEPARIN 5000 UNIT/ML 1 ML VIAL SQ SCH (23:04)
[2020-03-28] MEDS: levETIRAcetam 500 MG TAB PO SCH (23:04)
[2020-03-28] MEDS ORDERED: ACETAMINOPHEN 325 MG TABLET PO ONE (23:11)
[2020-03-28] MEDS ORDERED: DIPHENHYDRAMINE 50 MG/ML VIAL IV ONE (23:13)
[2020-03-29] MEDS: METOPROLOL TAR 25 MG TAB PO SCH ×2 (06:00→18:05)
[2020-03-29] MEDS: HEPARIN 5000 UNIT/ML 1 ML VIAL SQ SCH ×2 (08:40→20:09)
[2020-03-29] MEDS: levETIRAcetam 500 MG TAB PO SCH ×2 (08:40→20:09)
[2020-03-29] MEDS ORDERED: NA CHLORIDE 0.9% 250 ML ONE ×2 (10:00→14:47)
--- NOTE | 2020-03-29 10:44 | P.PN ---
Subjective Date of Service: 03/29/20 Chief Complaint: Anemia Subjective: No new changes (-still awaiting PRBC availability -Feels fine, denies any complaint) Physical Examination - Vital Signs Temperature: 99.6 F Blood Pressure: 103/56 Pulse: 90 Respirations: 18 Pulse Ox (%): 99 - Physical Exam General: Alert, In no apparent distress, Oriented x3 HEENT: Atraumatic, Normocephalic, PERRLA Neck: 2+ carotid pulse no bruit, JVD not distended Respiratory: Clear to auscultation bilaterally, Normal air movement Cardiovascular: Normal pulses, Regular rate/rhythm, Normal S1 S2 Gastrointestinal: Normal bowel sounds, Soft and benign, Non-distended Musculoskeletal: No clubbing, No swelling Neurological: Normal speech, Normal strength at 5/5 x4 extr, Normal tone - Studies Laboratory Data (last 24 hrs) 03/28/20 18:35: WBC 3.1 L, Hgb 5.5 L*, Hct 16.9 L*, Plt Count 172 03/28/20 18:35: Sodium 139, Potassium 3.1 L, BUN 10, Creatinine 2.05 H, Glucose 77, Magnesium 1.7 L, Total Bilirubin 0.8, AST 15, ALT 14, Alkaline Phosphatase 70, Troponin I < 0.02 Assessment & Plan - Problems (Diagnosis) (1) HTN (hypertension) Current Visit: Yes Status: Acute (2) Anemia Current Visit: Yes Status: Acute (3) ESRD (end stage renal disease) Current Visit: No Status: Acute (4) Lupus nephritis Current Visit: No Status: Acute Discharge Plan: Home Plan to discharge in: 24 Hours Physician Review: Patient Assessed, Agree with Above Assessment and Plan Physician Review Additional Text: Anemia of chronic disease End-stage renal disease on hemodialysis secondary to lupus nephritis Seizure disorder Hypertension Depression with anxiety Plan Anemia of chronic disease: Transfuse 2 units PRBC today when blood available Volume status controlled Will discuss with Nephrology to adjust erythropoietin dosage Follow repeat iron profile and dose IV iron if needed End-stage renal disease on hemodialysis secondary to lupus nephritis: Low potassium on admission post dialysis -repeat potassium level again today Continue HD MWF No urgency to dialysis today Seizure disorder: Continue Keppra Hypertension: Continue metoprolol Depression with anxiety: Continue citalopram Discharge Plan: Home Plan to discharge in: 24 Hours
[2020-03-29 11:28] LABS: Potassium 3.7 mmol/L (3.5-5.1)
[2020-03-29 11:39] LABS: Ferritin 1443.8 ng/mL (8-388)
[2020-03-29] MEDS ORDERED: FUROSEMIDE 40 MG/4 ML VIAL IV ONE ×2 (13:58→16:24)
[2020-03-29] MEDS ORDERED: POTASSIUM CL SA 10 MEQ TAB PO ONE (15:00)
[2020-03-29 18:58] LABS: Hematocrit 24.7 % (36.0-45.0)
[2020-03-29] MEDS: ATORVASTATIN 40 MG TAB PO SCH (20:09)
[2020-03-29] MEDS: CITALOPRAM 10 MG TABLET PO SCH (20:10)
[2020-03-30] MEDS: METOPROLOL TAR 25 MG TAB PO SCH (05:37)
[2020-03-30 06:10] LABS: Absolute Lymphocytes (CBC) 0.8 K/uL (0.7-4.9); Basophils % 0.7 % (0-1.3); Hematocrit 23.7 % (36.0-45.0); Lymphocytes % 34.3 % (15.3-44.8); MPV 8.1 fL (7.6-11.3); RBC Red Blood Cell Count 2.55 M/uL (3.86-4.86)
[2020-03-30 06:17] LABS: Potassium 4.1 mmol/L (3.5-5.1)
[2020-03-30] MEDS: HEPARIN 5000 UNIT/ML 1 ML VIAL SQ SCH (08:09)
[2020-03-30] MEDS: levETIRAcetam 500 MG TAB PO SCH (08:09)
[2020-03-30] MEDS: CITALOPRAM 10 MG TABLET PO SCH (08:09)
[2020-03-30 08:33] VITALS: BP 111/63; TEMP 98.3
[2020-03-30 09:08] VITALS: O2SAT 97
--- NOTE | 2020-03-30 09:54 | P.DS ---
Admission Date: 03/28/20 Discharge Date: 03/30/20 Disposition: ROUTINE DISCHARGE Discharge Condition: FAIR Reason for Admission: Anemia - Problems (1) HTN (hypertension) Current Visit: Yes Status: Acute (2) Anemia Current Visit: Yes Status: Acute (3) ESRD (end stage renal disease) Current Visit: No Status: Acute (4) Lupus nephritis Current Visit: No Status: Acute Brief History of Present Illness: Patient admitted for anemia. She has history of ESRD on HD MWF. She was admitted due to inability to get her blood transfusion while in the emergency room due to presence of high autoantibodies. She admitted to weakness pre dialysis Hospital Course: On admission patient was started on gentle IV fluid. After the latest she was able to receive 2 units of packed red cells with no immediate reaction noted. Her hemoglobin subsequently improved from 5.5 on admission to 8.0 this morning. Her vital signs remained stable. She is saturating well on will be discharged home today. She will resume dialysis in a.m. after outpatient dialysis unit Vital Signs/Physical Exam: Temp Pulse Resp BP Pulse Ox 98.3 F 84 16 111/63 97 03/30/20 08:00 03/30/20 08:00 03/30/20 08:00 03/30/20 08:00 03/30/20 08:00 General: Alert, In no apparent distress, Oriented x3 HEENT: Atraumatic, Normocephalic, PERRLA Neck: Supple, 2+ carotid pulse no bruit, JVD not distended Respiratory: Clear to auscultation bilaterally, Normal air movement Cardiovascular: No edema, Normal pulses, Regular rate/rhythm, Normal S1 S2 Gastrointestinal: Normal bowel sounds, Soft and benign, Non-distended Musculoskeletal: No clubbing, No swelling Neurological: Normal speech, Normal strength at 5/5 x4 extr, Normal tone Laboratory Data at Discharge: WBC 2.2 K/uL (4.3-10.9) L D 03/30/20 05:31 Hgb 8.0 g/dL (12.0-15.0) L 03/30/20 05:31 Hct 23.7 % (36.0-45.0) L 03/30/20 05:31 Plt Count 132 K/uL (152-406) L D 03/30/20 05:31 Sodium 142 mmol/L (136-145) 03/30/20 05:31 Potassium 4.1 mmol/L (3.5-5.1) 03/30/20 05:31 BUN 24 mg/dL (7-18) H 03/30/20 05:31 Creatinine 4.40 mg/dL (0.55-1.3) H 03/30/20 05:31 Glucose 79 mg/dL (74-106) 03/30/20 05:31 Magnesium 1.7 mg/dL (1.8-2.4) L 03/28/20 18:35 Total Bilirubin 0.8 mg/dL (0.2-1.0) 03/28/20 18:35 AST 15 U/L (15-37) 03/28/20 18:35 ALT 14 U/L (12-78) 03/28/20 18:35 Alkaline Phosphatase 70 U/L (45-117) 03/28/20 18:35 Troponin I < 0.02 ng/mL (0.0-0.045) 03/28/20 18:35 Home Medications: Aspirin [Virgie Chewable Aspirin] 81 mg PO DAILY 03/28/20 Atorvastatin Calcium [Lipitor*] 40 mg PO BEDTIME 03/28/20 Citalopram [Celexa*] 10 mg PO BEDTIME 03/28/20 Ferrous Sulfate [Ferrous Sulfate*] 325 mg PO TID 03/28/20 Hydroxychloroquine [Plaquenil*] 200 mg PO DAILY 03/28/20 Metoprolol Tartrate [Lopressor*] 25 mg PO BID 03/28/20 Mycophenolate Mofetil [Cellcept] 500 mg PO BID 03/28/20 Pantoprazole [Protonix Tab*] 40 mg PO DAILY 03/28/20 levETIRAcetam [Keppra*] 500 mg PO BID 03/28/20 predniSONE [Deltasone*] 10 mg PO DAILY 03/28/20 Patient Discharge Instructions: Continue dialysis as scheduled Diet: Renal Activity: Ad bethanie Time spent managing pt's care (in minutes): 35
--- NOTE | 2020-04-01 20:05 | EKG ---
Test Date: 2020-03-28 Test Time: 19:56:18 Assembly Department Supervisor: VINICIO MEASUREMENT RESULTS: Intervals: Rate: 91 CT: 148 QRSD: 78 QT: 388 QTc: 477 [place]: P: 43 CT: 148 QRS: 47 T: 51 INTERPRETIVE STATEMENTS: Normal sinus rhythm Normal ECG Compared to ECG 02/11/2020 12:06:42 No significant changes Electronically Signed On 04-01-20 19:59:52 CDT by Venkata Ramirez
== END 2020-03-30 10:54 | disposition home or self-care (01) | DRG 811 ==
LOC: ER 18:08 → ERHOLD 21:33 → OBSVTOIN 21:33 → 2ND 21:42
PROVIDERS: ADMIT Internal Medicine; ATTEND Internal Medicine
PROC: 30233N1 Transfusion of Nonautologous Red Blood Cells into Peripheral Vein, Percutaneous Approach (ICD-10-PCS; principal; 2020-03-28)
DX: D63.8 Anemia in other chronic diseases classified elsewhere (principal); N18.6 End stage renal disease; I12.0 Hypertensive chronic kidney disease with stage 5 chronic kidney disease or end stage renal disease; F41.8 Other specified anxiety disorders; M32.14 Glomerular disease in systemic lupus erythematosus; Z99.2 Dependence on renal dialysis; Z88.0 Allergy status to penicillin; Z79.899 Other long term (current) drug therapy; Z79.52 Long term (current) use of systemic steroids; Z79.82 Long term (current) use of aspirin
CPT/HCPCS: 36415; 36430; 71045; 80048; 80076; 82728; 83540; 83735; 83880; 84466; 84484; 85014; 85018; 85025; 86850; 86870; 86900; 86901; 86922; 93005; J1200; J1644; J1940; J7050

== ENCOUNTER 2020-04-11 11:23 | Inpatient (IN) | payer SELFPAY ==
--- OUTSIDE RECORDS SUMMARY | 2020-04-11 11:25 | XMS REPORT | Clinical Summary ---
:1995 Author Organization [facility] Address [address] [place] [address] Care Team Providers Name Role Phone Asked, [...] Comments CERVICAL CANCER SCREENING 2014 INFLUENZA VACCINE 03/25/2020 Results Not on fileafter 04/11/2019 Insurance Payer Benefit Plan / Subscriber ID Effective Dates Phone Addre ss Type Group CVCP CVCP BCBS xxxxxxxxxxxx 2015-Present [address], [address] [place] [address] ([place]) [address] [place] [address] [place] [id number] Advance Directives For more information, please contact: [phone] Type Date Recorded Patient Riveter Portable Machine Explanati on Advance Directives, 06/02/2016 11:51 PM Living Will and Medical Power of Data Virtualization Consultant Advance Directives, 06/03/2016 1:17 AM Living Will and Medical Power of Data Virtualization Consultant
--- OUTSIDE RECORDS SUMMARY | 2020-04-11 11:25 | XMS REPORT | Clinical Summary ---
:1995 Author Organization [facility] Address [facility] [place] [address] Care Team Providers Name Role Phone Unavailable [...] 19 yrs) 04/24/2020 Results Not on fileafter 04/11/2019 Insurance Payer Benefit Plan / Subscriber ID Effective Dates Phone Addre ss Type Group [facility] SELF-PAY xxxxxxxxx 2017-Prese [phone] SELF-PAY UNSCREENED [address] [place] [address] [address] [place] (Home) ELIZABETHCAROLINE [phone] (Work) Advance Directives Code Status Date Activated Date Inactivated Comments Full Code 04/21/2017 12:28 PM 05/01/2017 8:31 PM
--- OUTSIDE RECORDS SUMMARY | 2020-04-11 11:26 | XMS REPORT | Continuity of Care Document ---
:1995 Author Organization [facility] t Address [address] [place] [address] Care Team Providers Name Role Phone Asked, No Pcp Primary Care Physician Unavailable Aury MINERAL ECONOMIST, G Attending Clinician Doctor Unassigned, Name Attending [...] alth use use Lupus Lupus Disease Active [place] nephritis nephritis Heal th 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 Allergies, Adverse Reactions, Alerts Allergy Allergy Status Severity Reaction(s) Onset Inactive Treating Comm ents Source Name Type Date Date Clinician Penicill Propensi Active Shortness Of [place] ins ty to Breath 02-21 Methodi adverse 00:00: st reaction 00 s to drug Amoxicil Propensi Active [place] mariela-Pot ty to 03-01 Health Clavulan adverse 00:00: ate reaction 00 s to drug Penicill Propensi Active [place] ins ty to 03-01 Health adverse 00:00: reaction 00 s to drug Family History Family Member Diagnosis Comments Start Date Stop Date Source Natural father Heart failure [facility] Maternal grandfather Diabetes [facility] Maternal grandfather Heart failure [facility] Maternal grandmother Stomach cancer [facility] Natural mother Cerebral aneurysm [facility] Natural mother Heart failure [facility] Natural mother Hyperthyroidism [facility] Social History Social Habit Start Date Stop Date Quantity Comments Source Sex Assigned At [place] He alth Alcohol Comment 2018-02-21 2018-02-21 Occasionally Benjamin 00:00:00 00:00:00 Faith Alcohol intake 2017-04-24 2017-04-24 Current non-drinker H [facility] [email or web address] 00:00:00 00:00:00 of alcohol (finding) Smoking Status Start Date Stop Date Source Never smoker [facility] Medications Ordered Filled Start Stop Current Ordering Indication Dosage Frequency Signature Comments Components Source Medication Medication Date Date Medication? Clinician (SIG) Name Name hydroxychlo 2016-07 Yes 200mg QD Take 200 H arris roquine 0-08 mg by [email or web address] (PLAQUENIL) 18:25: mouth 200 mg 57 daily. tablet ferrous 2016-07 Yes 325mg QD Take 325 Harri s sulfate 325 0-08 mg by [facility] mg (65 mg 18:25: mouth iron) [...] Harri s (FOLVITE) 1 0-08 tablet by [facility] lth mg tablet 00:00: mouth 00 daily. sennosides- 2016-07 Yes 1{tbl} QD Take 1 Stahl rris docusate 0-08 tablet by Health sodium 00:00: mouth (SENNA 00 daily. PLUS) 8.6-50 mg tablet hydroxychlo 2016-07 Yes 200mg QD Take 1 Jason ris roquine 0-08 tablet by [facility] (PLAQUENIL) 00:00: mouth 200 mg 00 daily. tablet omeprazole 2016-07 Yes 40mg QD Take 2 Harri s (PRILOSEC) 0-08 capsules Healt h 20 mg 00:00: by mouth delayed 00 daily. release capsule mycophenola 2016-07 Yes Systemic 1500mg Q.5D Take 3 Quispe te 0-08 lupus tablets by [facility] (CELLCEPT) 00:00: erythematos mouth 2 500 [...] Source Future Scheduled 2020-04-24 IMM Influenza Quispe [facility] Test 00:00:00 Seasonal Apr to September (>/= 19 yrs) [code = IMM Influenza Seasonal Apr to September (>/= 19 yrs)] Future Scheduled 2020-03-25 INFLUENZA VACCINE Beto roman [facility] Test 00:00:00 [code = INFLUENZA VACCINE] Future Scheduled 2014 Screening for [facility]odist Test 00:00:00 malignant neoplasm of cervix (procedure) [code = 502002345] Future Scheduled 2014 Screening for Jose Enrique Palmer lt Test 00:00:00 malignant neoplasm of cervix (procedure) [code = 659093722] Encounters Start End Encounter Admission Attending Care Care Encounter Source Date/Time Date/Time Type Type Clinicians Facility Department ID 2019-10-05 2019-10-05 Emergency KEELY Jeffers [id number] 17:16:57 20:21:00 Kate Duque [id number] [place] [id number] [place] [id number] 2019-10-05 2019-10-05 Orders Doctor CHATA [id number] 00:00:00 00:00:00 Only Unassigned, ELIZABETH [id number] [place] [id number] 2017-06-03 2017-06-03 Outpatient [facility] [id number] [place] 00:00:00 00:00:00 Health 2017-04-26 2017-04-26 Outpatient [facility] [id number] [place] 07:37:31 07:37:31 Health 2017-04-24 2017-04-24 Outpatient [facility] [id number] [place] 07:21:26 07:21:26 Health 2017-04-23 2017-04-23 Outpatient [facility] [id number] [place] 15:25:08 15:25:08 Health 2017-04-22 2017-04-22 Outpatient [facility] [id number] [place] 10:38:27 10:38:27 Health 2017-04-21 2017-04-21 Emergency [facility] [id number] [place] 04:19:42 04:19:42 Health 2017-04-21 2017-04-21 Inpatient [facility] [id number] [place] 00:52:05 00:52:05 [facility] 2017-04-19 2017-04-19 Emergency [facility] [id number] [place] 18:41:35 18:41:35 Health Results This patient has no known results.
[2020-04-11 12:25] LABS: Absolute Lymphocytes (CBC) 0.7 K/uL (0.7-4.9); Basophils % 0.6 % (0-1.3); Hematocrit 20.3 % (36.0-45.0); Lymphocytes % 27.7 % (15.3-44.8); MPV 8.6 fL (7.6-11.3); RBC Red Blood Cell Count 2.15 M/uL (3.86-4.86)
[2020-04-11 12:27] LABS: Protime INR 0.91
[2020-04-11 12:36] LABS: Potassium 3.4 mmol/L (3.5-5.1)
--- NOTE | 2020-04-11 12:49 | EDPHYS ---
Physician Documentation [facility] Name: Amira Ruiz Age: 24 yrs Sex: Female : 1995 Arrival Date: 04/11/2020 Time: 11:27 Bed 14 Private MD: ED Physician Kory Santoyo HPI: 04/11 13:46 This 24 yrs old Black Female presents to ER via Ambulatory with complaints of Abnormal kb Lab Results. 13:46 Pt states she was told to come to the ER because she needed a blood transfusion. States kb she started dialysis a month ago and has had to get a transfusion once already. Reports she had a heavy, 12 day cycle this month that just ended. Onset: The symptoms/episode began/occurred today. Severity of symptoms: At their worst the symptoms were moderate in the emergency department the symptoms are unchanged. The patient has not experienced similar symptoms in the past. The patient has not recently seen a physician. OBSTETRICS GYNECOLOGY MD: 11:45 LMP 03/2020 aa5 Historical: - Allergies: 11:30 PENICILLINS; sv - PMHx: 11:30 Anemia; Dialysis; Lupus; sv - PSHx: 11:45 Dialysis catheter to chest; aa5 - Immunization history:: Adult Immunizations up to date. - Social history:: Smoking status: Patient denies any tobacco usage or history of. ROS: 13:45 Constitutional: Negative for fever, chills, and weight loss, Cardiovascular: Negative kb for chest pain, palpitations, and edema, Respiratory: Negative for shortness of breath, cough, wheezing, and pleuritic chest pain, Abdomen/GI: Negative for abdominal pain, nausea, vomiting, diarrhea, and constipation, Back: Negative for injury and pain, MS/Extremity: Negative for injury and deformity, Skin: Negative for injury, rash, and discoloration, Neuro: Negative for headache, weakness, numbness, tingling, and seizure. Exam: 13:45 Constitutional: This is a well developed, well nourished patient who is awake, alert, kb and in no acute distress. Head/Face: Normocephalic, atraumatic. Chest/axilla: Normal chest wall appearance and motion. Nontender with no deformity. No lesions are appreciated. Cardiovascular: Regular rate and rhythm with a normal S1 and S2. No gallops, murmurs, or rubs. Normal PMI, no JVD. No pulse deficits. Respiratory: Lungs have equal breath sounds bilaterally, clear to auscultation and percussion. No rales, rhonchi or wheezes noted. No increased work of breathing, no retractions or nasal flaring. Abdomen/GI: Soft, non-tender, with normal bowel sounds. No distension or tympany. No guarding or rebound. No evidence of tenderness throughout. Skin: Warm, dry with normal turgor. Normal color with no rashes, no lesions, and no evidence of cellulitis. MS/ Extremity: Pulses equal, no cyanosis. Neurovascular intact. Full, normal range of motion. Neuro: Awake and alert, GCS 15, oriented to person, place, time, and situation. Cranial nerves II-XII grossly intact. Motor strength 5/5 in all extremities. Sensory grossly intact. Cerebellar exam normal. Normal gait. Vital Signs: 11:31 BP 112 / 70; Pulse 110; Resp 16; Temp 98.5; Pulse Ox 100% ; Weight 57.15 kg; Height 4 sv ft. 11 in. (149.86 cm); 13:00 BP 100 / 60; Pulse 89; Resp 18 S; Pulse Ox 100% on R/A; Pain 0/10; aa5 14:45 BP 102 / 72; Pulse 85; Resp 16 S; Temp 98.0(TE); Pulse Ox 100% on R/A; Pain 0/10; aa5 11:31 Body Mass Index 25.45 (57.15 kg, 149.86 cm) sv MDM: 11:36 Patient medically screened. kb 12:47 Data reviewed: vital signs, nurses notes. Data interpreted: Pulse oximetry: on room air kb is 100 %. Interpretation: normal. Counseling: I had a detailed discussion with the patient and/or guardian regarding: the historical points, exam findings, and any diagnostic results supporting the discharge/admit diagnosis, lab results, the need for further work-up and treatment in the hospital. Physician consultation: Dr Zev marshall for consult. 04/11 11:59 Order name: Type And Screen ca1 04/11 11:59 Order name: CBC with Diff; Complete Time: 13:45 ca1 04/11 11:59 Order name: Basic Metabolic Panel; Complete Time: 12:40 ca1 04/11 12:00 Order name: PT-INR; Complete Time: 12:40 ca1 04/11 12:00 Order name: Ptt, Activated; Complete Time: 12:40 ca1 04/11 12:00 Order name: IV; Complete Time: 12:00 ca1 04/11 12:51 Order name: Packed RBC Leukored EDSC 04/11 13:05 Order name: Antibody Identification EDSC 04/11 13:33 Order name: CONS Physician Consult EDSC 04/11 13:37 Order name: CBC Smear Scan; Complete Time: 13:45 EDMS Administered Medications: No medications were administered Disposition: 16:43 Co-signature as Attending Physician, Kory Santoyo MD I agree with the assessment and kdr plan of care. Disposition: 04/11/20 12:48 Hospitalization ordered by Alberto Devlin for Observation. Preliminary diagnosis is Anemia, unspecified. - Bed requested for Telemetry/MedSurg (observation). - Status is Observation. aa5 - Condition is Stable. - Problem is new. - Symptoms are unchanged. Signatures: Dispatcher [employer] EDSC Jeimy Little, JALEN-C EDGE BRUSHER-CkBianca Stanley, RN RN Kory Santoyo MD MD kdr Hien Gómez RN RN aa5 Velvet Hudson 3 Eunice Penn, RN RN ca1 Corrections: (The following items were deleted from the chart) 12:53 12:46 PACKED RBC LEUKORED -1+BB.LAB.BRZ ordered. [facility] EDSC 12:53 12:46 ABO/RH typing ordered. [facility] EDSC 12:53 12:46 Antibody Screen ordered. [facility] EDSC 13:44 12:48 Hospitalization Ordered by Alberto Devlin MD for Observation. Preliminary dh3 diagnosis is Anemia, unspecified. Bed requested for Telemetry/MedSurg (observation). Status is Observation. Condition is Stable. Problem is new. Symptoms are unchanged. kb 15:21 13:44 04/11/2020 12:48 Hospitalization Ordered by Alberto Devlin MD for Observation. aa5 Preliminary diagnosis is Anemia, unspecified. Bed requested for Telemetry/MedSurg (observation). Status is Observation. Condition is Stable. Problem is new. Symptoms are unchanged. dh3
--- NOTE | 2020-04-11 12:49 | ER ---
Nurse's Notes [facility] Name: Amira Ruiz Age: 24 yrs Sex: Female : 1995 Arrival Date: 04/11/2020 Time: 11:27 Bed 14 Private MD: Diagnosis: Anemia, unspecified Presentation: 04/11 11:29 Chief complaint: Patient states: sent by Dr Brothers for low hemoglobin again. Had a blood sv transfusion 2 weeks ago. Due to have HD today. Coronavirus screen: Client denies travel out of the [place] in the last 14 days. At this time, the client does not indicate any symptoms associated with coronavirus-19. Ebola Screen: No symptoms or risks identified at this time. Risk Assessment: Do you want to hurt yourself or someone else? Patient reports no desire to harm self or others. Onset of symptoms was April 11, 2020. 11:29 Method Of Arrival: Ambulatory sv 11:29 Acuity: BRIT 3 sv 11:31 Initial Sepsis Screen: Does the patient meet any 2 criteria? HR > 90 bpm. No. Patient's sv initial sepsis screen is negative. Does the patient have a suspected source of infection? No. Patient's initial sepsis screen is negative. PNEUMATIC SYSTEMS OPERATOR: 11:45 LMP 03/2020 aa5 Historical: - Allergies: 11:30 PENICILLINS; sv - PMHx: 11:30 Anemia; Dialysis; Lupus; sv - PSHx: 11:45 Dialysis catheter to chest; aa5 - Immunization history:: Adult Immunizations up to date. - Social history:: Smoking status: Patient denies any tobacco usage or history of. Screenin:45 Abuse screen: Denies threats or abuse. Nutritional screening: No deficits noted. aa5 Tuberculosis screening: No symptoms or risk factors identified. Fall Risk None identified. Assessment: 11:45 General: Appears comfortable, Behavior is calm, cooperative, Reports fatigue. Pain: aa5 Denies pain. Neuro: Level of Consciousness is awake, alert, obeys commands, Oriented to person, place, time, situation. Cardiovascular: Heart tones S1 S2 present Dialysis catheter to chest, pt reports she just started dialysis approximately 1 month ago. . Rhythm is regular. Respiratory: Airway is patent Respiratory effort is even, unlabored, Respiratory pattern is regular, symmetrical, Denies cough, shortness of breath. GI: Abdomen is flat, non-distended, Bowel sounds present X 4 quads. Abd is soft and non tender X 4 quads. Patient currently denies bloody stool, denies vomiting blood. : No signs and/or symptoms were reported regarding the genitourinary system. EENT: No signs and/or symptoms were reported regarding the EENT system. Derm: Skin is dry, Skin is normal, Skin temperature is warm. Musculoskeletal: Range of motion: intact in all extremities. 13:00 Reassessment: Pt sitting in bed using her cellphone. Pt notified of wait time for room aa5 assignment. . 14:00 Reassessment: Unsuccessful attempt to call report to admitting nurse. . aa5 15:00 Neuro: Level of Consciousness is awake, alert, obeys commands, Oriented to person, aa5 place, time, situation. Respiratory: Airway is patent Respiratory effort is even, unlabored, Respiratory pattern is regular, symmetrical. Derm: Skin is dry, Skin is normal, Skin temperature is warm. Vital Signs: 11:31 BP 112 / 70; Pulse 110; Resp 16; Temp 98.5; Pulse Ox 100% ; Weight 57.15 kg; Height 4 sv ft. 11 in. (149.86 cm); 13:00 BP 100 / 60; Pulse 89; Resp 18 S; Pulse Ox 100% on R/A; Pain 0/10; aa5 14:45 BP 102 / 72; Pulse 85; Resp 16 S; Temp 98.0(TE); Pulse Ox 100% on R/A; Pain 0/10; aa5 11:31 Body Mass Index 25.45 (57.15 kg, 149.86 cm) sv ED Course: 11:27 Patient arrived in ED. mr 11:29 Arm band placed on. sv 11:30 Triage completed. sv 11:34 Jeimy Little FNP-C [facility]. kb 11:34 Kory Santoyo MD is Attending Physician. kb 11:38 Hien Gómez, APOLLO is Primary Nurse. aa5 11:45 Patient has correct armband on for positive identification. Bed in low position. Call aa5 light in reach. Side rails up X 1. Pulse ox on. NIBP on. 11:57 Initial lab(s) drawn, by me, sent to lab. Inserted saline lock: 20 gauge in right aa5 antecubital area, using aseptic technique. Blood collected. VO for labs and IV received at 1145. 12:48 Alberto Devlin MD is Hospitalizing Provider. kb 15:15 No provider procedures requiring assistance completed. Patient admitted, IV remains in aa5 place. Administered Medications: No medications were administered Outcome: 12:48 Decision to Hospitalize by Provider. kb 15:15 Patient left the ED. aa5 15:15 Admitted to Tele accompanied by tech, via wheelchair, with chart, Report called to josh Werner RN 15:15 Condition: stable 15:15 Instructed on the need for admit, Demonstrated understanding of instructions. Signatures: Jeimy Little, PLASTICS FACTORY WORKER-C PLASTICS FACTORY WORKER-Bianca Puente RN RN Renata Mas Audri, APOLLO RN kemal Corrections: (The following items were deleted from the chart) 11:33 11:29 Chief complaint: Patient states: sent by Dr Brothers for low hemoglobin again. Had a sv blood transfusion 2 weeks ago. sv 15:22 15:21 Patient left the ED. aa5 aa5 15:24 11:45 Cardiovascular: Heart tones S1 S2 present Rhythm is regular aa5 aa5 15:24 11:45 GI: Abdomen is flat, non-distended, Bowel sounds present X 4 quads. Abd is soft aa5 and non tender X 4 quads. aa5
--- NOTE | 2020-04-11 13:29 | P.CNS ---
Date of Consult: 04/11/20 Reason for Consult: ESRD, fluid management Chief Complaint: abnormal lans History of Present Illness: HPI Pt with Hx of ESRD on HD MWF ,SLE, pericardial effusion in 2007 S/P window, on cellcept and prednsisone pt had no blood w/u or Rhumatology and nephrology F/U for more than 6yrs presented with asymptomatic anemia no chest pain, palpitation, nausea, vomiting or diarrhea Physical exam general: AAOX3, NAD , obese Neck; Supple, No elevated JVD hear: RRR, normal S1,2 no murmur or rub Chest: CTAB, no rlaes or wheezes Abdomen: Soft , Nt Extremities No edema or ulcer A/P ESRD on HD MWF renal dose meds HD today acute on chronic anemia likely due to CKD and lupus transfuse 2PRBC with HD todayu cont epogen SLE cont meds HTN resume home meds total time spent 30 min Allergies Penicillins Allergy (Verified 02/22/20 04:41) Hives/Rash Home Medications: Aspirin [Virgie Chewable Aspirin] 81 mg PO DAILY 03/28/20 Atorvastatin Calcium [Lipitor*] 40 mg PO BEDTIME 03/28/20 Citalopram [Celexa*] 10 mg PO BEDTIME 03/28/20 Ferrous Sulfate [Ferrous Sulfate*] 325 mg PO TID 03/28/20 Hydroxychloroquine [Plaquenil*] 200 mg PO DAILY 03/28/20 Metoprolol Tartrate [Lopressor*] 25 mg PO BID 03/28/20 Mycophenolate Mofetil [Cellcept] 500 mg PO BID 03/28/20 Pantoprazole [Protonix Tab*] 40 mg PO DAILY 03/28/20 levETIRAcetam [Keppra*] 500 mg PO BID 03/28/20 predniSONE [Deltasone*] 10 mg PO DAILY 03/28/20 levETIRAcetam [Keppra*] 500 mg PO BID #60 tab 03/30/20 - Past Medical/Surgical History Diabetic: No -: Lupus -: Acute renal failure/ ESRD/dialysis pt -: Congestive heart failure status post pericardial window in 2007 -: Anemia of chronic disease -: Hypertension -: Depression with anxiety -: Right kidney biopsy -: Pericardial window -: Tessio placement Psychosocial/ Personal History: . Lives at home with . No children - Family History Mother Medical History: Heart disease, Kidney disease Aunt Medical History: Diabetes Grandmother Medical History: Diabetes - Social History Alcohol use: No CD- Drugs: No Caffeine use: No Physical Examination Laboratory Data (last 24 hrs) 04/11/20 11:57: PT 10.7, INR 0.91, APTT 28.1 04/11/20 11:57: Sodium 143, Potassium 3.4 L, BUN 28 H, Creatinine 4.97 H, Glucose 85 04/11/20 11:57: WBC 2.7 L D, Hgb 6.8 L*, Hct 20.3 L*, Plt Count 115 L
--- NOTE | 2020-04-11 13:36 | P.HP ---
Certification for Inpatient Patient admitted to: Observation With expected LOS: <2 Midnights Patient will require the following post-hospital care: None Practitioner: I am a practitioner with admitting privileges, knowledge of patient current condition, hospital course, and medical plan of care. Services: Services provided to patient in accordance with Admission requirements found in Title 42 Section 412.3 of the Code of Federal Regulations Patient History Date of Service: 04/11/20 Reason for admission: abnormal lans History of Present Illness: 24-year-old female with history of lupus nephritis, end-stage renal disease on chronic hemodialysis (M-W-F), hypertension, seizure disorder presents emergency department for chief complaint of abnormal lab results. Patient reports that she had labs drawn on 04/10/20 and received a call today to present to ED for further evaluation and management for a low hemoglobin. When patient was worked up in the emergency department she was found to have a hemoglobin of 6.7. Patient does report being a little bit more sleepy the past few days. Patient was scheduled for dialysis today, but missed her appointment due to presenting to the ED. Her airline station agent was contacted in the ED, and plans for patient to be admitted to receive hemodialysis and 2 units of PRBCs. She otherwise denies vision changes, chest pain, shortness of breath, abdominal pain, dysuria, change in bowel habits, no rashes, no lesions, no bleeding from anywhere. Allergies Penicillins Allergy (Verified 02/22/20 04:41) Hives/Rash Home Medications: Aspirin [Virgie Chewable Aspirin] 81 mg PO DAILY 03/28/20 Atorvastatin Calcium [Lipitor*] 40 mg PO BEDTIME 03/28/20 Citalopram [Celexa*] 10 mg PO BEDTIME 03/28/20 Ferrous Sulfate [Ferrous Sulfate*] 325 mg PO TID 03/28/20 Hydroxychloroquine [Plaquenil*] 200 mg PO DAILY 03/28/20 Metoprolol Tartrate [Lopressor*] 25 mg PO BID 03/28/20 Mycophenolate Mofetil [Cellcept] 500 mg PO BID 03/28/20 Pantoprazole [Protonix Tab*] 40 mg PO DAILY 03/28/20 levETIRAcetam [Keppra*] 500 mg PO BID 03/28/20 predniSONE [Deltasone*] 10 mg PO DAILY 03/28/20 levETIRAcetam [Keppra*] 500 mg PO BID #60 tab 03/30/20 - Past Medical/Surgical History Diabetic: No -: Lupus -: Acute renal failure/ ESRD/dialysis pt -: Congestive heart failure status post pericardial window in 2007 -: Anemia of chronic disease -: Hypertension -: Depression with anxiety -: Right kidney biopsy -: Pericardial window -: Tessio placement Psychosocial/ Personal History: . Lives at home with . No children - Family History Mother -: Heart disease, Kidney disease Aunt -: Diabetes Grandmother -: Diabetes - Social History Smoking Status: Never smoker Alcohol use: No CD- Drugs: No Caffeine use: No Review of Systems 10-point ROS is otherwise unremarkable Physical Examination - Physical Exam General: Alert, In no apparent distress HEENT: Other (Dry mucous membranes), EOMI, Sclerae nonicteric Respiratory: Clear to auscultation bilaterally, Normal air movement Cardiovascular: No edema, Regular rate/rhythm, Normal S1 S2 Gastrointestinal: Soft and benign, Non-distended, No tenderness Musculoskeletal: No tenderness Integumentary: No rashes Neurological: Normal speech, Normal affect - Studies Laboratory Data (last 24 hrs) 04/11/20 11:57: PT 10.7, INR 0.91, APTT 28.1 04/11/20 11:57: Sodium 143, Potassium 3.4 L, BUN 28 H, Creatinine 4.97 H, Glucose 85 04/11/20 11:57: WBC 2.7 L D, Hgb 6.8 L*, Hct 20.3 L*, Plt Count 115 L Assessment and Plan - Advance Directives Does patient have a Living Will: No Does patient have a Durable POA for Healthcare: No Physician Review Additional Text: Anemia of chronic disease End-stage renal disease on hemodialysis secondary to lupus nephritis Seizure disorder Hypertension Depression with anxiety Anemia of chronic disease: Patient be transfused 2 units packed red blood cells with dialysis No acute bleed Anticipate discharge tomorrow morning after completed blood transfusion. End-stage renal disease on hemodialysis secondary to lupus nephritis Obtain and continue patient's home medications. Patient completed dialysis today. At discharge patient will continue with dialysis on Tuesday unless there is indication for more urgent dialysis. Seizure disorder - Continue Keppra Hypertension - Continue metoprolol Depression with anxiety - Continue citalopram Dispo: To be transfused 2 PRBCs with dialysis today, patient has positive antibodies Likely discharge home tomorrow Time Spent Managing Pts Care (In Minutes): 45
[2020-04-11 13:37] LABS: White Blood Cell Scan OK (OK)
[2020-04-11 13:38] LABS: Anisocytosis 1+; Blood Morphology Comment NOTED (NOT SEEN); Platelet Estimate DECR; Polychromasia 1+; Rouleau NOTED
[2020-04-11 16:24] VITALS: BMI 25.4
[2020-04-11 19:41] VITALS: O2SAT 100
[2020-04-12 06:48] LABS: Potassium 3.4 mmol/L (3.5-5.1)
[2020-04-12 06:57] LABS: Absolute Lymphocytes (CBC) 0.8 K/uL (0.7-4.9); Basophils % 0.4 % (0-1.3); Hematocrit 26.7 % (36.0-45.0); Lymphocytes % 26.2 % (15.3-44.8); MPV 8.2 fL (7.6-11.3); RBC Red Blood Cell Count 2.98 M/uL (3.86-4.86)
[2020-04-12 08:16] LABS: Anisocytosis 1+; Blood Morphology Comment NOTED (NOT SEEN); Platelet Estimate DECR; White Blood Cell Scan OK (OK)
[2020-04-12 10:14] VITALS: BP 105/57; TEMP 98
--- NOTE | 2020-04-12 11:18 | P.DS ---
Admission Date: 04/12/20 Discharge Date: 04/12/20 Disposition: ROUTINE DISCHARGE Discharge Condition: GOOD Reason for Admission: abnormal lans Consultations: Nephrology for dialysis Brief History of Present Illness: 24-year-old female with history of lupus nephritis, end-stage renal disease on chronic hemodialysis (M-W-F), hypertension, seizure disorder presents emergency department for chief complaint of abnormal lab results. Patient reports that she had labs drawn on 04/10/20 and received a call today to present to ED for further evaluation and management for a low hemoglobin. When patient was worked up in the emergency department she was found to have a hemoglobin of 6.7. Patient does report being a little bit more sleepy the past few days. Patient was scheduled for dialysis today, but missed her appointment due to presenting to the ED. Her fur scraper was contacted in the ED, and plans for patient to be admitted to receive hemodialysis and 2 units of PRBCs. She otherwise denies vision changes, chest pain, shortness of breath, abdominal pain, dysuria, change in bowel habits, no rashes, no lesions, no bleeding from anywhere. Hospital Course: Patient underwent hemodialysis and received 2uPRBCs without complications. On day of discharge she was feeling well, no evidence of bleeding, no SOB/fatigue. Vital signs were stable. Hemoglobin increased from 6.8-8.9. She was discharged home to continue dialysis as previously scheduled and continue home medications as previously prescribed. Vital Signs/Physical Exam: Temp Pulse Resp BP Pulse Ox 98 F 82 18 105/57 L 100 04/12/20 08:00 04/12/20 08:00 04/12/20 08:00 04/12/20 08:00 04/12/20 08:00 General: Alert, In no apparent distress HEENT: Mucous membr. moist/pink, Sclerae nonicteric Neck: Supple Respiratory: Clear to auscultation bilaterally, Normal air movement Cardiovascular: No edema, Normal pulses, Regular rate/rhythm, Normal S1 S2 Gastrointestinal: Soft and benign, Non-distended, No tenderness Musculoskeletal: No erythema, No tenderness Integumentary: No rashes Neurological: Normal speech, Normal affect Laboratory Data at Discharge: WBC 2.9 K/uL (4.3-10.9) L 04/12/20 06:16 Hgb 8.9 g/dL (12.0-15.0) L 04/12/20 06:16 Hct 26.7 % (36.0-45.0) L D 04/12/20 06:16 Plt Count 93 K/uL (152-406) L* 04/12/20 06:16 PT 10.7 SECONDS (9.5-12.5) 04/11/20 11:57 INR 0.91 04/11/20 11:57 APTT 28.1 SECONDS (24.3-36.9) 04/11/20 11:57 Sodium 141 mmol/L (136-145) 04/12/20 06:16 Potassium 3.4 mmol/L (3.5-5.1) L 04/12/20 06:16 BUN 10 mg/dL (7-18) 04/12/20 06:16 Creatinine 2.55 mg/dL (0.55-1.3) H D 04/12/20 06:16 Glucose 78 mg/dL (74-106) 04/12/20 06:16 Home Medications: Atorvastatin Calcium [Lipitor*] 40 mg PO BEDTIME 03/28/20 Citalopram [Celexa*] 10 mg PO BEDTIME 03/28/20 Hydroxychloroquine [Plaquenil*] 200 mg PO DAILY 03/28/20 Metoprolol Tartrate [Lopressor*] 25 mg PO BID 03/28/20 Mycophenolate Mofetil [Cellcept] 500 mg PO BID 03/28/20 Pantoprazole [Protonix Tab*] 40 mg PO DAILY 03/28/20 predniSONE [Deltasone*] 10 mg PO DAILY 03/28/20 levETIRAcetam [Keppra*] 500 mg PO BID #60 tab 03/30/20 Venlafaxine HCl 37.5 mg PO DAILY 04/11/20 Patient Discharge Instructions: Follow up with PCP. Continue dialysis as scheduled. Diet: Renal Activity: Ad bethanie Time spent managing pt's care (in minutes): 35
== END 2020-04-12 12:22 | disposition home or self-care (01) | DRG 682 ==
LOC: ER 11:23 → ERHOLD 13:31 → 2ND 14:51 → OBSVTOIN 04-12 09:53
PROVIDERS: ADMIT Hospitalist; ATTEND Hospitalist
PROC: 30233N1 Transfusion of Nonautologous Red Blood Cells into Peripheral Vein, Percutaneous Approach (ICD-10-PCS; principal; 2020-04-12)
PROC: 5A1D70Z Performance of Urinary Filtration, Intermittent, Less than 6 Hours Per Day (ICD-10-PCS; 2020-04-12)
DX: I12.0 Hypertensive chronic kidney disease with stage 5 chronic kidney disease or end stage renal disease (principal); N18.6 End stage renal disease; D63.1 Anemia in chronic kidney disease; F41.8 Other specified anxiety disorders; M32.14 Glomerular disease in systemic lupus erythematosus; E66.9 Obesity, unspecified; Z68.25 Body mass index [BMI] 25.0-25.9, adult; Z79.82 Long term (current) use of aspirin; Z88.0 Allergy status to penicillin; Z79.52 Long term (current) use of systemic steroids; Z99.2 Dependence on renal dialysis; Z79.899 Other long term (current) drug therapy; Z95.828 Presence of other vascular implants and grafts; Z20.828 Contact with and (suspected) exposure to other viral communicable diseases
CPT/HCPCS: 36415; 80048; 85025; 85610; 85730; 86850; 86870; 86900; 86901; 86922; 90935; 99285; G0378; J1644; P9016; U0002

== ENCOUNTER 2020-09-01 12:02 | Emergency (ER) | payer OTHER ==
--- NOTE | 2020-09-01 18:00 | RAD REPORT ---
EXAM DESCRIPTION: RAD - Chest Single View - 09/01/2020 5:28 pm CLINICAL HISTORY: Quiton catheter placement, chest pain near site of catheter COMPARISON: Portable March 2020 TECHNIQUE: AP portable chest image was obtained 09/01/2020 5:28 pm . FINDINGS: Lungs are clear. Heart and vasculature are normal. No measurable pleural effusion and no p neumothorax. No acute bony abnormality seen. No acute aortic finding. Right-sided hemodialysis cathet er shows no change in positioning. No abnormal bend or kink of the tubing. No suspicious soft tissue finding identifiable. IMPRESSION: No acute cardiopulmonary process. No significant change from comparison.
--- NOTE | 2020-09-01 18:02 | RAD REPORT ---
EXAM DESCRIPTION: RAD - Neck Soft Tissue - 09/01/2020 5:28 pm CLINICAL HISTORY: florentino catheter placement COMPARISON: None. TECHNIQUE: AP and lateral views the neck obtained. FINDINGS: No prevertebral soft tissue thickening. No foreign body or abnormal air density. Epiglotti s is normal. Tonsillar and adenoid tissue within normal limits as well. No disk or bony abnormality . Right-sided Florentino catheter shows no abnormal bend or kink of the tubing. Positioning is similar to comparison. No air or foreign body in the soft tissues. Soft tissue surrounding the catheter are not outside the range of normal. IMPRESSION: Unremarkable soft tissue neck examination. Soft tissues near the Florentino catheter are not clearly outside of normal range.
[2020-09-01 18:29] LABS: Basophils % 0.6 % (0-1.3); Hematocrit 33.5 % (36.0-45.0); Lymphocytes % 37.1 % (15.3-44.8); MPV 8.4 fL (7.6-11.3); RBC Red Blood Cell Count 3.61 M/uL (3.86-4.86)
[2020-09-01 18:34] LABS: Potassium 4.3 mmol/L (3.5-5.1)
--- NOTE | 2020-09-01 19:43 | ER ---
Nurse's Notes [facility] Name: Amira Ruiz Age: 25 yrs Sex: Female : 1995 Arrival Date: 09/01/2020 Time: 12:39 Bed 14 Private MD: Diagnosis: Alcohol abuse;Strain of muscle, fascia and tendon at neck level-neck pain Presentation: 09/01 12:56 Chief complaint: Patient states: dizziness and neck pain where her HD catheter is (was sv placed January 2020) x 3 days. HD was not done today. Coronavirus screen: Client denies travel out of the [place] in the last 14 days. At this time, the client does not indicate any symptoms associated with coronavirus-19. Ebola Screen: No symptoms or risks identified at this time. Risk Assessment: Do you want to hurt yourself or someone else? Patient reports no desire to harm self or others. Onset of symptoms was August 29, 2020. 12:56 Method Of Arrival: Ambulatory sv 12:56 Acuity: BRIT 3 sv 12:58 Initial Sepsis Screen: Does the patient meet any 2 criteria? No. Patient's initial sv sepsis screen is negative. Does the patient have a suspected source of infection? No. Patient's initial sepsis screen is negative. Triage Assessment: 13:00 General: Appears in no apparent distress. comfortable, Behavior is calm, cooperative, sv appropriate for age. Pain: Complains of pain in right neck area. Neuro: Level of Consciousness is awake, alert, obeys commands, Oriented to person, place, time, situation, Gait is steady. Respiratory: Respiratory effort is even, unlabored. Historical: - Allergies: 12:58 PENICILLINS; sv - PMHx: 12:58 Anemia; Dialysis; Lupus; sv - PSHx: 12:58 Dialysis catheter to chest; sv - Immunization history:: Adult Immunizations up to date. - Social history:: Smoking status: Patient denies any tobacco usage or history of. Screenin:16 Abuse screen: Denies threats or abuse. Nutritional screening: No deficits noted. ll1 Tuberculosis screening: No symptoms or risk factors identified. Fall Risk Secondary diagnosis (15 points) dizzy. IV access (20 points). Total Dominguez Fall Scale indicates Low Risk Score (25-44 pts). Fall prevention measures have been instituted. Side Rails Up X 2 Placed close to Nursing Station Frequent Obs/Assesments occuring As available Patient and Family Educated on Fall Prevention Program and strategies. Assessment: 17:00 Reassessment: No changes from previously documented assessment. Patient and/or family ll1 updated on plan of care and expected duration. Pain level reassessed. Patient is alert, oriented x 3, equal unlabored respirations, skin warm/dry/pink. 18:00 Reassessment: No changes from previously documented assessment. Patient and/or family ll1 updated on plan of care and expected duration. Pain level reassessed. 19:10 Reassessment: Patient appears in no apparent distress at this time. Patient and/or jb4 family updated on plan of care and expected duration. Pain level reassessed. Patient is alert, oriented x 3, equal unlabored respirations, skin warm/dry/pink. 20:01 Reassessment: Patient appears in no apparent distress at this time. Patient and/or jb4 family updated on plan of care and expected duration. Pain level reassessed. Patient is alert, oriented x 3, equal unlabored respirations, skin warm/dry/pink. Vital Signs: 12:58 BP 113 / 82; Pulse 89; Resp 16; Temp 98; Pulse Ox 100% ; Weight 54.43 kg; Height 4 ft. sv 11 in. (149.86 cm); Pain 4/10; 19:15 BP 125 / 93; Pulse 87; Resp 16; Pulse Ox 97% on R/A; jb4 12:58 Body Mass Index 24.24 (54.43 kg, 149.86 cm) sv ED Course: 12:39 Patient arrived in ED. mr 12:57 Triage completed. sv 12:58 Arm band placed on. sv 17:01 Davy De La Cruz, MOUNA is PHCP. pm1 17:02 Daniel Devlin MD is Attending Physician. pm1 17:02 Clare Castle, APOLLO is Primary Nurse. ll1 17:28 Chest Single View XRAY In Process Unspecified. EDMS 17:28 Neck Soft Tissue XRAY In Process Unspecified. EDMS 18:00 Inserted saline lock: 22 gauge in right antecubital area, using aseptic technique. ll1 Blood collected. 18:16 Patient has correct armband on for positive identification. Bed in low position. Call ll1 light in reach. Side rails up X 1. Cardiac monitoring not applicable on this patient. 20:01 No provider procedures requiring assistance completed. IV discontinued, intact, jb4 bleeding controlled, No redness/swelling at site. Pressure dressing applied. Administered Medications: No medications were administered Outcome: 19:42 Discharge ordered by MD. pm1 20:01 Discharged to home ambulatory. jb4 20:01 Condition: stable 20:01 Discharge instructions given to patient, Instructed on discharge instructions, follow up and referral plans. Demonstrated understanding of instructions, follow-up care. 20:02 Patient left the ED. jb4 Signatures: Dispatcher [employer] EDMS Bianca Osborn, RN RN Renata Jiménez FloraDavy zuñiga, AGRONOMY ADVISOR AGRONOMY ADVISOR pm1 Arya Wolf RN RN jb4 Clare Castle RN RN ll1
--- NOTE | 2020-09-01 19:43 | EDPHYS ---
Physician Documentation [facility] Name: Amira Ruiz Age: 25 yrs Sex: Female : 1995 Arrival Date: 09/01/2020 Time: 12:39 Bed 14 Private MD: ED Physician Daniel Devlin HPI: 09/01 18:03 This 25 yrs old Black Female presents to ER via Ambulatory with complaints of Dialysis pm1 cath problem, Dizziness. 18:03 The patient or guardian complains of pain, that is acute. The symptoms are located on pm1 the right anterior aspect of neck, at the location of her florentino catheter bends at the neck. Onset: The symptoms/episode began/occurred 3 day(s) ago. Associated signs and symptoms: Pertinent positives: Dizziness, The patient admits to recent alcohol use or smells of alcohol on examination. Associated signs and symptoms: Pertinent negatives: chest pain, shortness of breath. The pain does not radiate. Severity of symptoms: in the emergency department the symptoms are unchanged. Patient went to dialysis today and reported her neck pain. They were concerned that the neck pain was due to the catheter getting dislodge and Dr. Brothers instructed the patient to report to the ER for evaluation. Patient is also reporting dizziness but has been treating her neck pain and headache with alcohol and herbal teas. Historical: - Allergies: 12:58 PENICILLINS; sv - PMHx: 12:58 Anemia; Dialysis; Lupus; sv - PSHx: 12:58 Dialysis catheter to chest; sv - Immunization history:: Adult Immunizations up to date. - Social history:: Smoking status: Patient denies any tobacco usage or history of. ROS: 18:03 Constitutional: Negative for fever, chills, and weight loss. pm1 18:03 Cardiovascular: Negative for chest pain, palpitations, and edema, Respiratory: Negative for shortness of breath, cough, wheezing, and pleuritic chest pain, Abdomen/GI: Negative for abdominal pain, nausea, vomiting, diarrhea, and constipation, Back: Negative for injury and pain, MS/Extremity: Negative for injury and deformity, Skin: Negative for injury, rash, and discoloration. 18:03 Neck: Positive for pain with movement, tenderness. 18:03 Neuro: Positive for dizziness, headache, Negative for numbness, tingling, weakness. Exam: 18:03 Constitutional: This is a well developed, well nourished patient who is awake, alert, pm1 and in no acute distress. Head/Face: Normocephalic, atraumatic. 18:03 Chest/axilla: Normal chest wall appearance and motion. Nontender with no deformity. No lesions are appreciated. 18:03 Skin: Warm, dry with normal turgor. Normal color with no rashes, no lesions, and no evidence of cellulitis. MS/ Extremity: Pulses equal, no cyanosis. Neurovascular intact. Full, normal range of motion. 18:03 Neck: External neck: tenderness, that is mild, of the right sternocleidomastoid, C-spine: vertebral tenderness, is not appreciated. 18:03 Cardiovascular: Exam negative for acute changes, Rate: normal, Rhythm: regular, Pulses: no pulse deficits are appreciated. 18:03 Respiratory: Exam negative for acute changes, respiratory distress, shortness of breath. 18:03 Neuro: Exam negative for acute changes, Orientation: is normal, Mentation: is normal, Motor: is normal, moves all fours. Vital Signs: 12:58 BP 113 / 82; Pulse 89; Resp 16; Temp 98; Pulse Ox 100% ; Weight 54.43 kg; Height 4 ft. sv 11 in. (149.86 cm); Pain 4/10; 19:15 BP 125 / 93; Pulse 87; Resp 16; Pulse Ox 97% on R/A; jb4 12:58 Body Mass Index 24.24 (54.43 kg, 149.86 cm) sv MDM: 17:07 Patient medically screened. pm1 19:28 Data reviewed: vital signs. Data interpreted: Pulse oximetry: on room air is 100 %. pm1 Interpretation: normal. Counseling: I had a detailed discussion with the patient and/or guardian regarding: the historical points, exam findings, and any diagnostic results supporting the discharge/admit diagnosis, lab results, radiology results, the need for outpatient follow up, to return to the emergency department if symptoms worsen or persist or if there are any questions or concerns that arise at home. 19:38 Physician consultation: Aniyah Montgomeyr MD was contacted at 19:38, regarding pm1 patient's condition, wants patient to contact dialysis center tomorrow and get her dialysis. Communicated that with the patient and she understands. Discussed patient's use of alcohol for headaches with Dr. Brothers which is likely causing her dizziness. Discussed with patient the need to stop using alcohol. 09/01 17:55 Order name: CBC with Diff pm1 09/01 17:55 Order name: BMP; Complete Time: 19:02 pm1 09/01 17:11 Order name: Chest Single View XRAY; Complete Time: 18:03 pm1 09/01 17:11 Order name: Neck Soft Tissue XRAY; Complete Time: 18:03 pm1 09/01 17:55 Order name: IV Saline Lock; Complete Time: 18:01 pm1 Administered Medications: No medications were administered Disposition: 09/01/20 19:42 Discharged to Home. Impression: Strain of muscle, fascia and tendon at neck level - neck pain, Alcohol abuse. - Condition is Stable. - Discharge Instructions: Alcohol Use Disorder, Dizziness, Muscle Strain. - Medication Reconciliation Form, Thank You Letter, Antibiotic Education, Prescription Opioid Use form. - Follow up: Emergency Department; When: As needed; Reason: Worsening of condition. Follow up: Private Physician; When: 2 - 3 days; Reason: Recheck today's complaints, Continuance of care, Re-evaluation by your physician. - Problem is new. - Symptoms have improved. - Notes: Call the dialysis center tomorrow and get dialysis tomorrow. Dr. Brothers said they should give you a seat tomorrow since you missed your dialysis today Addendum: 09/09/2020 18:54 Co-signature as Attending Physician, Daniel Devlin MD. r n Signatures: Dispatcher [employer] Bianca Cowan RN RN sv Nieto, Roman, MD MD rn Marinas, Patrick, NP RADAR SCIENTIST pm1 Arya Wolf RN RN jb4 Corrections: (The following items were deleted from the chart) 09/01 19:44 19:42 09/01/2020 19:42 Discharged to Home. Impression: Neck pain; Alcohol abuse. pm1 Condition is Stable. Forms are Medication Reconciliation Form, Thank You Letter, Antibiotic Education, Prescription Opioid Use. Follow up: Emergency Department; When: As needed; Reason: Worsening of condition. Follow up: Private Physician; When: 2 - 3 days; Reason: Recheck today's complaints, Continuance of care, Re-evaluation by your physician. Problem is new. Symptoms have improved. pm1 20:02 19:44 09/01/2020 19:42 Discharged to Home. Impression: Strain of muscle, fascia and jb4 tendon at neck level - neck pain; Alcohol abuse. Condition is Stable. Discharge Instructions: Muscle Strain, Dizziness, Alcohol Use Disorder. Forms are Medication Reconciliation Form, Thank You Letter, Antibiotic Education, Prescription Opioid Use. Follow up: Emergency Department; When: As needed; Reason: Worsening of condition. Follow up: Private Physician; When: 2 - 3 days; Reason: Recheck today's complaints, Continuance of care, Re-evaluation by your physician. Problem is new. Symptoms have improved. pm1
[2020-09-01 20:20] VITALS: TEMP 98
[2020-09-01 20:22] VITALS: BP 125/93; O2SAT 97
[2020-09-01 21:27] LABS: Blood Morphology Comment NOT SEEN (NOT SEEN); Platelet Estimate DECR; White Blood Cell Scan OK (OK)
--- OUTSIDE RECORDS SUMMARY | 2020-09-02 22:38 | XMS REPORT | Clinical Summary ---
:1995 Author Organization [facility] Address [address] [place] [address] Care Team Providers Name Role Phone Unavailable Primary Care Provider Unavailable Allergies Active Allergy Reactions Severity Noted Date Comments Penicillins 05/16/2020 Medications Not on file Active Problems Not on file Encounters Date Type Specialty Care Team Description 09/01/2020 Documentation Transplant Amber Ramirez 08/31/2020 Orders Only Transplant Ania Carvajal P, SLE ( systemic lupus erythematosus related syndrome) ([facility]) (Primary Dx); RN ESRD (end stage renal disease) ([facility]); Pre-transplant evaluation for chronic kidney disease 08/19/2020 Telephone Transplant Roya Smith Appointm ent (I returned Miss Ruiz phon e call and she's aware I a m waiting on eval auth fr om [employer]. I se nt a staff message to the financial team and per Vi lissa S she waiting on the comp field case manager with Randi lema to call her back w [facility] eval auth) 08/18/2020 Telephone Transplant Frances Irvin Appointment 07/30/2020 Documentation Transplant Ramirez, Amber 07/30/2020 Abstract Transplant Ramirez, Amber 07/30/2020 Documentation Transplant Ramirez, Amber 07/02/2020 Documentation Transplant Ramirez, Amber 07/02/2020 Documentation Transplant Ramirez, Amber 07/02/2020 Abstract Transplant Ramirez, Amber 06/30/2020 Documentation Transplant Karol Shah 06/25/2020 Documentation Transplant Ramirez, Amber 06/18/2020 Documentation Transplant Ramirez, Amber 06/18/2020 Telephone Transplant Amber Ramirez Appointment ( Cld pt to obtain confirm if she had recieved link f or education video and consents. Per p t she has not and gave me a new email address. ) 05/22/2020 Documentation Transplant Amber Ramirez 05/16/2020 Documentation Transplant Amber Ramirez 05/16/2020 Abstract Transplant Amber Ramirez 05/13/2020 Documentation Transplant Kleber Nash 05/13/2020 Abstract Transplant Kleber Nash 05/13/2020 Telephone Transplant Kleber Nash Kidney Transp lant Pre-evaluation 05/08/2020 Documentation Kleber Bravo 02/12/2020 Lab Requisition Lab after 09/02/2019 Social History Tobacco Use Types Packs/Day Years Used Date Never Assessed Sex Assigned at Date Recorded Not on file Last Filed Vital Signs Vital Sign Reading Time Taken Comments Blood Pressure - - Pulse - - Temperature - - Respiratory Rate - - Oxygen Saturation - - Inhaled Oxygen Concentration - - Weight 56.7 kg (125 lb) 05/16/2020 9:40 AM CDT Height 149.9 cm (4' 11") 05/16/2020 9:40 AM CDT Body Mass Index 25.25 05/16/2020 9:40 AM CDT Plan of Treatment Not on file Procedures Procedure Name Priority Date/Time Associated Diagnosis Comme nts SARS-COV2/RT-PCR Routine 02/11/2020 7:00 PM Resu lts for this ([facility]) CDT procedure are in the results section. after 09/02/2019 Results SARS-CoV2/RT-PCR ([facility]) (02/11/2020 7:00 PM CDT) SARS-COV2/RT-PCR Negative Not Detected, [facility] Negative, See [facility] external report CENTER for linked test SARS-COV-2 [facility] PERFORMING LAB [facility] Specimen Other - Nasopharyngeal wall structure (b chayito structure) Narrative Performed At Negative results do not preclude SARS-CoV-2 [facility] infection and should not be used as the sole basis for patient management decisions. Negative results must be combined with clinical observations, patient history, and epidemiological information. A false negative result may occur if a specimen is improperly collected, transported or handled. The limit of detection for this assay is 250 copies/mL. This SARS CoV-2 test is a rapid, real-time RT-PCR test intended for the qualitative detection of nucleic acid from SARS-CoV-2 in a nasopharyngeal swab specimen collected from individuals suspected of COVID-19 by their healthcare provider. This test has not been Food and Drug Administration (FDA) cleared or approved and has been authorized by FDA under an Emergency Use Authorization (EUA). This EUA will be effective until the declaration that circumstances exist justifying the authorization of the emergency use of in vitro diagnostic tests for detection and/or diagnosis of COVID-19 is terminated under Section 564(b)(2) of the Act or the EUA is revoked under Section 564(g) of the Act. Fact Sheet for Healthcare Providers: https://www.WinBuyer/Documents/Xpert%20Xpre ss%20SARS%20CoV-2/Fact%20Sheets/3023802%20SAR S-COV-2%20HEALTHCARE%20PROVIDERS%20FACT%20SHEE T.pdf Fact Sheet for Healthcare Patients: https://www.WinBuyer/Documents/Xpert%20Xpre ss%20SARS%20CoV-2/Fact%20Sheets/3023801%20SAR S-COV-2%20PATIENT%20FACT%20SHEET.pdf Performing Laboratory: [address] [place] [address] Performing Organization Address City/State/Zipcode Phone Number [address] [address] CENTER after 09/02/2019
--- OUTSIDE RECORDS SUMMARY | 2020-09-02 22:38 | XMS REPORT | Clinical Summary ---
:1995 Author Organization [facility] Address [facility] [place] [address] Care Team Providers Name Role Phone Unavailable [...] Not on file Last Filed Vital Signs Not on file Plan of Treatment Health Maintenance Due Date Last Done Comments Pap Cervical Cancer Scrn 2014 IMM Influenza Seasonal Apr to September (>/= 19 yrs) 04/24/2020 Results Not on fileafter 09/02/2019 Insurance Payer Benefit Plan / Subscriber ID Effective Dates Phone Addre ss Type Group [facility] SELF-PAY [id number] 2017-Prese [phone] [id number] PATI SELF-PAY UNSCREENED nt [address] [place] [address] [address] (Home) [place] [phone] [id number] (Work) Advance Directives Code Status Date Activated Date Inactivated Comments Full Code 04/21/2017 12:28 PM 05/01/2017 8:31 PM
--- OUTSIDE RECORDS SUMMARY | 2020-09-02 22:38 | XMS REPORT | Clinical Summary ---
:1995 Author Organization [facility] Address [address] [place] [address] Care Team Providers Name Role Phone Asked, No Pcp Primary Care Provider Unavailable Allergies Active Allergy Reactions Severity Noted Date Comments Penicillins Shortness Of Breath High 02/21/2018 Medications No known medications Active Problems Not on file Encounters Date Type Specialty Care Team Description 08/18/2020 Telephone Transplant Tatiana Ruiz MA Referral - Kidney Txp after 09/02/2019 Surgical History Surgery Date Site/Laterality Comments LYMPH NODE BIOPSY Left Social History Tobacco Use Types Packs/Day Years Used Date Never Smoker Smokeless Tobacco: Never Used Alcohol Use Drinks/Week oz/Week Comments Yes Occasionally Sex Assigned at Date Recorded Not on file Last Filed Vital Signs Not on file Plan of Treatment Health Maintenance Due Date Last Done Comments COVID-19 VACCINE (1 of 2) 2009 HEPATITIS C SCREENING 2011 CERVICAL CANCER SCREENING 2014 INFLUENZA VACCINE 02/23/2020 06/22/2010 Results Not on fileafter 09/02/2019 Insurance Payer Benefit Plan / Subscriber ID Effective Dates Phone Addre ss Type Group CVCP CVCP BCBS [id number] 2015-Present [address] [place] [address] [place], [place] [address] Advance Directives For more information, please contact: [phone] Type Date Recorded Patient Medical Records Assistant Explanati on Advance Directives, 04/18/2020 5:13 AM Living Will and Medical Power of Tank Truck Engine Mechanic Advance Directives, 04/18/2020 5:10 AM Living Will and Medical Power of Tank Truck Engine Mechanic
--- OUTSIDE RECORDS SUMMARY | 2020-09-02 22:39 | XMS REPORT | Continuity of Care Document ---
:1995 Author Organization [facility] t Address [address] [place] [address] Care Team Providers Name Role Phone Asked, No Pcp Primary Care Physician Unavailable James Attending Clinician Unavailable Alena BUSTILLOS, P Attending Clinician Unavailable Luis Attending Clinician Unavailable Carlos VELAZQUEZ, K N Attending Clinician Joseph RIOJAS Attending Clinician Unavailable Albaro Attending Clinician Unavailable Alyssa Attending Clinician Unavailable Saad Attending Clinician Unavailable Payers Payer Name Policy Type Policy Effective Date Expiration Date Sour ce Number MEDICAREMEDICARE A [id number] 2020 DAVION Napoles [id number] 2019 00:00:00 - M edical -PresentMedicare Center CVCPCVCP [id number] 2015 [place] [id number] 00:00:00 Met jacobsen [id number] [address], [address] [place] [id number] Problems Condition Condition Condition Status Onset Resolution Last Treating Co mments Source Name Details Category Date Date Treatment Clinician Date Thyroid Thyroid Disease Active 2016-07 [facility] lesion lesion 0-01 Health 00:00: 00 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 l, maria l, 04-23 Health cervical cervical 00:00: 00 Anemia Anemia Disease Active [facility] 04-21 Health 00:00: 00 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 00:00: mason with mason with 00 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 00:00: 00 Menorrhagi Menorrhagi Disease Active H arris a with a with Health regular regular cycle cycle Uterine Uterine Disease Active [facility] leiomyoma leiomyoma Heal th 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 Heal th anemia anemia Current Current Disease Active [place] use of use of Health steroid steroid medication medication High risk High risk Disease Active [facility] ris medication medication He alth use use Lupus Lupus Disease Active [place] nephritis nephritis Heal th 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 Allergies, Adverse Reactions, Alerts Allergy Allergy Status Severity Reaction(s) Onset Inactive Treating Comm ents Source Name Type Date Date Clinician Penicill Propensi Active 2019-[address] [facility] adverse [facility]: Medical reaction 00 Center s Penicill Propensi Active Shortness Of [place] ins ty to Breath 731 [facility] adverse 00:00: st reaction 00 s to drug Amoxicil Propensi Active [place] mariela-Pot ty to 808 [facility] Clavulan adverse 00:00: ate reaction 00 s to drug Penicill Propensi Active [place] ins ty to 808 Health adverse 00:00: reaction 00 s to drug Family History Family Member Diagnosis Comments Start Date Stop Date Source Natural mother Heart failure [facility] Natural [facility] Natural mother Cerebral aneurysm [facility] Natural father Heart failure [facility] Maternal grandfather Diabetes [facility] is [facility] Maternal grandfather Heart failure [facility] Maternal grandmother Stomach cancer [facility] Social History Social Habit Start Date Stop Date Quantity Comments Source Sex Assigned At [place] [employer] Tobacco use and 2018-02-21 2018-02-21 Never used [place] exposure 00:00:00 00:00:00 [employer] Alcohol intake 2018-02-21 2018-02-21 Current drinker of Jose Alberto ha 00:00:00 00:00:00 alcohol (finding) [facility] Alcohol Comment 2018-02-21 2018-02-21 Occasionally [place] 00:00:00 00:00:00 [employer] Smoking Status Start Date Stop Date Source Never smoker Ramirez Adelaide espinoza Medications Ordered Filled Start Stop Current Ordering Indication Dosage Frequency Signature Comments Components Source Medication Medication Date Date Medication? Clinician (SIG) Name Name hydroxychlo 2016-07 Yes 200mg QD Take 200 H arris roquine 0-08 mg by [facility] (PLAQUENIL) 18:25: mouth 200 mg 57 daily. tablet ferrous 2016-07 Yes 325mg QD Take 325 Harri s sulfate 325 0-08 mg by [facility] mg (65 mg 18:25: mouth iron) 57 daily tablet (with breakfast) . aspirin 2016-07 Yes 81mg QD Chew and [facility] (ASPIRIN) 0-08 swallow 81 Heal th 81 mg 18:25: mg by chewable 57 mouth tablet daily. sertraline 2016-07 Yes 50mg QD Take 50 mg H arris (ZOLOFT) 50 0-08 by mouth Heal th mg tablet 18:25: daily. 57 atovaquone 2016-07 Yes 1500mg QD Take 10 mL [facility] (MEPRON) 0-08 by mouth [facility] 750 mg/5 mL 00:00: daily. oral 00 suspension folic acid 2016-07 Yes 1mg QD Take 1 Harri s (FOLVITE) 1 0-08 tablet by [facility] lth mg tablet 00:00: mouth 00 daily. sennosides- 2016-07 Yes 1{tbl} QD Take 1 Stahl rris docusate 0-08 tablet by Health sodium 00:00: mouth (SENNA 00 daily. PLUS) 8.6-50 mg tablet hydroxychlo 2016-07 Yes 200mg QD Take 1 Jason ris roquine 0-08 tablet by [facility] (PLAQUENIL) 00:00: mouth 200 mg 00 daily. tablet omeprazole 2016-07 Yes 40mg QD Take 2 Harri s (PRILOSEC) 0-08 capsules Healt h 20 mg 00:00: by mouth delayed 00 daily. release capsule mycophenola 2016-07 Yes Systemic 1500mg Q.5D Take 3 [facility] te 0-08 lupus tablets by [facility] (CELLCEPT) 00:00: erythematos mouth 2 500 [...] tablets) daily until seen in clinic. ondansetron 2016- Yes 4mg Take 1 Glenny is (ZOFRAN) 4 0-08 tablet by Heal th mg tablet 00:00: mouth 00 every 8 hours as needed for up to 5 doses for Nausea. Vital Signs Vital Name Observation Time Observation Value Comments Source Body height 2020-05-16 09:40:00 149.9 cm [facility] Body weight 2020-05-16 09:40:00 56.7 kg [facility] BMI 2020-05-16 09:40:00 25.25 kg/m2 [facility] Procedures Procedure Date / Time Performed Performing Clinician Sour e SARS-COV2/RT-PCR ([facility] 2020-02-11 19:00:00 [facility] Plan of Care Planned Activity Planned Date Details Comments Source Future Scheduled 2020-04-24 IMM Influenza Jose Enrique a lt Test 00:00:00 Seasonal Apr to September (>/= 19 yrs) [code = IMM Influenza Seasonal Apr to September (>/= 19 yrs)] Future Scheduled 2020-02-23 INFLUENZA VACCINE Beto n [employer] Test 00:00:00 [code = INFLUENZA VACCINE] Future Scheduled 2014 Screening for Ramirez Al [facility] Test 00:00:00 malignant neoplasm of cervix (procedure) [code = 859652354] Future Scheduled 2014 Screening for Jose Enrique Palmer lt Test 00:00:00 malignant neoplasm of cervix (procedure) [code = 767246724] Future Scheduled 2011 Hepatitis C [facility] hodist Test 00:00:00 screening (procedure) [code = 528678287] Future Scheduled 2009 COVID-19 VACCINE (1 [place] [employer] Test 00:00:00 of 2) [code = COVID-19 VACCINE (1 of 2)] Encounters Start End Encounter Admission Attending Care Care Encounter Source Date/Time Date/Time Type Type Clinicians Facility Department ID 2020-08-18 2020-08-18 Telephone Eleanor-Patty [facility] [id number] 00:00:00 00:00:00 Nina carreno Robson Néstor [facility] [id number] [facility] [id number] [place] [id number] AND [facility] 2017-06-03 2017-06-03 Outpatient [facility] [id number] [place] 00:00:00 00:00:00 Health 2017-04-26 2017-04-26 Outpatient [facility] [id number] [place] 07:37:31 07:37:31 Health 2017-04-24 2017-04-24 Outpatient [facility] [id number] [place] 07:21:26 07:21:26 Health 2017-04-23 2017-04-23 Outpatient [facility] [id number] [place] 15:25:08 15:25:08 Health 2017-04-22 2017-04-22 Outpatient [facility] [id number] [place] 10:38:27 10:38:27 Health 2017-04-21 2017-04-21 Emergency [facility] [id number] [place] 04:19:42 04:19:42 Health 2017-04-21 2017-04-21 Inpatient [facility] [id number] [place] 00:52:05 00:52:05 Health 2017-04-19 2017-04-19 Emergency [facility] [id number] [place] 18:41:35 18:41:35 Health Results Test Description Test Time Test Comments Results Result Comments Source SARS-CoV2/RT-PCR ([facility]) 2020-02-12 04:00:00 Test Item Value Reference Range Interpretation Comme nts SARS-COV2/RT-PCR (test code = Negative Not Detected, 40491-0) Negative, See external report for linked test SARS-COV-2 PERFORMING LAB [facility] (test code = 87693-4) SEAN (test code = SEAN) Negative results do not preclude SARS-CoV-2 infection and should not be used as [...] of the Act. Fact Sheet for Healthcare Providers:https://www.The Smart Baker/Documents/Xpert%20Xpress %20SARS%20CoV-2/Fact%20Sheets /302-3802%70QERN-TNP-5%20HEAL THCARE%20PROVIDERS%20FACT%20S HEET.pdf Fact Sheet for Healthcare Patients:https://www.Zoombu/Documents/Xpert%20Xpress% 20SARS%20CoV-2/Fact%20Sheets/ 302-3801%38JNXS-IND-2%20PATIE NT%20FACT%20SHEET.pdf Performing Laboratory:[facility] [place] [address] [facility])2020-02-12 04:00:00 Test Item Value Reference Range Interpretation Comments SARS-COV2/RT-PCR (test code Negative Not Detected, Negative, = [id number]) See external report for linked test SARS-COV-2 PERFORMING LAB [facility] (test code = 7733281) Negative results do not preclude SARS-CoV-2 infection and should not be used as the sole basis for patient management decisions. Negative results must be combined with clinical observations, patient history, and epidemiological information. A false negative result may occur if a specimen is improperly collected, transported or handled.The limit of detection for this assay is 250 copies/mL.This SARS CoV-2 test is a rapid, real-time RT-PCR test intended for the qualitative detection of nucleic acid from SARS-CoV-2 in a nasopharyngeal swab specimen collected from individuals suspected of COVID-19 by their healthcare provider.This test has not been Food and Drug [...] is revoked under Section 564(g) of the Act.Fact Sheet for Healthcare Pro viders:https://www.Foldees/Documents/Xpert%20Xpress%20SARS%20CoV-2/Fact%20Sh eets/3023802%62RVFK-DIU-2%20HEALTHCARE%20PROVIDERS%20FACT%20SHEET.pdfFact Sheet for Healthcare Patients:https://www.Ezeecube/Documents/Xpert%20Xpress%20SARS%20CoV-2/Fact%20Sheets/3023801%20SARS-COV -2%20PATIENT%20FACT%20SHEET.pdfPerforming Laboratory:[facility] [place] [address]
--- OUTSIDE RECORDS SUMMARY | 2020-09-02 22:39 | XMS REPORT | Summary of Care ---
:[address] [facility] Address [address] [place] [address] Care Team Providers Name Role Phone Pcp, Does Not Have A Primary Care Provider Encounter Details Date Type Department Care Team Description 08/21/2020 Letter (Out) [facility] Transplant- Zaina Griffin [facility] [address] [facility] [address] [place] [address] Entrance B [phone] [place], [place] [phone] Allergies Active Allergy Reactions Severity Noted Date Comments Penicillins Hives 03/19/2018 documented as of this encounter (statuses as of 08/21/2020) Medications Medication Sig Dispensed Refills Start Date End Date Status mycophenolate mofetil Take by 0 Active (CELLCEPT ORAL) mouth. hydroxychloroquine Take by 0 A ctive sulfate (PLAQUENIL ORAL) mouth. Fe gluconate/vit C/folic Take by 0 Active acid (IRON-C ORAL) mouth. sulfamethoxazole-trimetho Take 1 tablet 20 tablet 0 07/24/2018 Active prim 800-160 mg per by mouth every tablet 12 (twelve) hours. benzonatate 100 mg Take 1 capsule 14 capsule 0 07/24/2018 Active capsule by mouth 3 (three) times daily as needed for Cough. predniSONE 20 mg Take 1 tablet 5 tablet 0 10/05/2019 Active tabletIndications: by mouth Paresthesia daily. 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 documented as of this encounter Last Filed Vital Signs Not on filedocumented in this encounter Plan of Treatment Health Maintenance Due Date Last Done Comments VARICELLA VACCINES (1 of 2 - 1994 2-dose childhood series) Depression Screening 2005 SARS-CoV-2 (COVID-19) Vaccine (1 2009 of 2) DTaP,Tdap,and Td Vaccines (1 - 2012 Tdap) PAP SMEAR 2014 INFLUENZA VACCINE (#1) 2020 06/22/2010 PNEUMOCOCCAL 0-64 YEARS COMBINED Aged Out No longer eligible based on SERIES patient's age to complete this topic documented as of this encounter Results Not on filedocumented in this encounter Insurance Payer Benefit Plan / Subscriber ID Effective Phone Address T ype Group Dates COMMERCIAL COMMERCIAL [id number] 2019-Pres HMO /PPO/POS NON-CONTRACT NON-CONTRACT ent GENERIC GENERIC [facility] [id number] 2020-Prese Medicare Adv spring nt HMO documented as of this encounter
--- OUTSIDE RECORDS SUMMARY | 2020-09-02 22:39 | XMS REPORT | Summary of Care ---
:1995 Author Organization [facility] - [facility] Address [address] [place] [id number] Care Team Providers Name Role Phone Pcp, Does Not Have A Primary Care Provider Reason for Visit Reason Comments Intake Referral Encounter Details Date Type Department Care Team Description 08/18/2020 Telephone [facility] [address] [facility] [id number] [place] [address] Entrance B [phone] [place], [place] [phone] Allergies Active Allergy Reactions Severity Noted Date Comments Penicillins Hives 03/19/2018 documented as of this encounter (statuses as of 08/25/2020) Medications Medication Sig Dispensed Refills Start Date [...] as of this encounter (statuses as of 08/25/2020) Active Problems No known active problemsdocumented as of this encounter (statuses as of 08/25/2020) Social History Tobacco Use Types Packs/Day Years Used Date Never Assessed Sex Assigned at Date Recorded Not on file COVID-19 Exposure Response Date Recorded In the last month, have you been in contact Unable to assess 08/21/2020 11:09 AM [employer] with someone who was confirmed or suspected to have Coronavirus / COVID-19? documented as of this encounter Last Filed Vital Signs Not on filedocumented in this encounter Miscellaneous Notes Telephone Encounter - Kellen Morales - 08/25/2020 4:16 PM CSTNOT FINANCIALLY CLEARED//NON-CONTRACTED//REDIRECTED/LETTER SENT elephone Encounter - Kellen Morales - 08/18/2020 10:14 AM CSTSubmitted for Financial Clearance Referral received via: Phone How did the patient hear about our program: Internet Which organ are you referring the patient for transplant or liver surgery? Kidney Does the patient have HIV/AIDS: no Does the patient have cancer: no Does the patient have any potential living donors: yes Is the patient listed for transplant at this time: no Has the patient had a previous transplant (s): no What caused the patients' disease? Diagnosis: Lupus Does the patient have diabetes: No Does the patient use assistive devices: No Does the patient have any special needs? Oxygen? no Patient Height: 4'11" Patient Weight: 120 lbs Referring MD: Vivi Valles Specialty: Microbiological Analyst (Kidney) Care Team Physician fashion patternmaker: Alfred Gomez Jr. Address: [address] [place] [id number] Currently on dialysis: yes What type of dialysis: Hemodialysis (HD) Dialysis Center: [facility] Dialysis Dialysis Insurance Information: Medicare [id number] [facility] [id number] [facility] [id number] signed by Kellen Morales at 08/18/2020 10:31 AM [employer] documented in this encounter Plan of Treatment Health Maintenance Due Date Last Done Comments VARICELLA VACCINES (1 of 2 - 1994 2-dose childhood series) Depression Screening 2005 DTaP,Tdap,and Td Vaccines (1 - 2012 Tdap) PAP SMEAR 2014 INFLUENZA VACCINE (#1) 2020 06/22/2010 PNEUMOCOCCAL 0-64 YEARS COMBINED Aged Out No longer eligible based on SERIES patient's age to complete this topic documented as of this encounter Results Not on filedocumented in this encounter Insurance Payer Benefit Plan / Subscriber ID Effective Phone Address T ype Group Dates COMMERCIAL COMMERCIAL [id number] 2019-Pres HMO /PPO/POS NON-CONTRACT NON-CONTRACT ent GENERIC GENERIC [employer] [place] [id number] 2020-Prese Medicare Adv spring nt HMO documented as of this encounter
--- OUTSIDE RECORDS SUMMARY | 2020-09-02 22:39 | XMS REPORT | Summary of Care ---
:1995 Author Organization [facility] - [facility] Address [address] [place] [address] Care Team Providers Name Role Phone Pcp, Does Not Have A Primary Care Provider Encounter Details Date Type Department Care Team Description 08/21/2020 Hospital Encounter [facility] Tissue Antigen Lab Duran Griffin, Registration [address] [place] [phone] Allergies Active Allergy Reactions Severity Noted Date Comments Penicillins Hives 03/19/2018 documented as of this encounter (statuses as of 08/24/2020) Medications Medication Sig Dispensed Refills Start Date [...] as of this encounter (statuses as of 08/24/2020) Active Problems No known active problemsdocumented as of this encounter (statuses as of 08/24/2020) Social History Tobacco Use Types Packs/Day Years Used Date Never Assessed Sex Assigned at Date Recorded Not on file COVID-19 Exposure Response Date Recorded In the last month, have you been in contact Unable to assess 08/21/2020 11:09 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
--- OUTSIDE RECORDS SUMMARY | 2020-09-02 22:39 | XMS REPORT | Summary of Care ---
:1995 Author Organization [facility] - [facility] Address [address] [place] [address] Care Team Providers Name Role Phone Pcp, Does Not Have A Primary Care Provider Reason for Visit Reason Comments Intake Referral Encounter Details Date Type Department Care Team Description 08/18/2020 Telephone [facility] [address] [facility] [id number] [place] [address] Entrance B [phone] [place] [phone] Allergies Active Allergy Reactions Severity Noted Date Comments Penicillins Hives 03/19/2018 documented as of this encounter (statuses as of 08/18/2020) Medications Medication Sig Dispensed Refills Start Date [...] as of this encounter (statuses as of 08/18/2020) Active Problems No known active problemsdocumented as of this encounter (statuses as of 08/18/2020) Social History Tobacco Use Types Packs/Day Years Used Date Never Assessed Sex Assigned at Date Recorded Not on file documented as of this encounter Last Filed Vital Signs Not on filedocumented in this encounter Miscellaneous Notes Telephone Encounter - Kellen Morales - 08/18/2020 10:14 [...] 120 lbs Referring MD: Vivi Valles Specialty: General Assignment Reporter (Kidney) Care Team Physician food beverage manager: Alfred Gomez Jr. 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
== END 2020-09-01 20:02 | disposition home or self-care (01) ==
LOC: ER 12:02
DX: S16.1XXA Strain of muscle, fascia and tendon at neck level, initial encounter (principal); X58.XXXA Exposure to other specified factors, initial encounter; F10.10 Alcohol abuse, uncomplicated; M32.15 Tubulo-interstitial nephropathy in systemic lupus erythematosus; Z99.2 Dependence on renal dialysis; R42 Dizziness and giddiness
CPT/HCPCS: 36415; 70360; 71045; 80048; 85025; 99283